=== PATIENT | male | born 1940 | race Caucasian/White ===

== ENCOUNTER → 2018-06-19 | Outpatient (CLI) | payer MEDICARE ==
--- NOTE | 2018-06-19 10:22 | CT ---
EXAMINATION TYPE: High resolution CT chest DATE OF EXAM: 06/19/2018 COMPARISON: 07/16/2014 HISTORY: 78-year-old male follow-up Interstitial lung disease. Complains of shortness of breath and d ifficulty breathing. TECHNIQUE: Contiguous high-resolution axial scanning of the chest without IV contrast utilizing 1 mm slice thickness and centimeter gap per HRCT protocol. Both prone and supine imaging was utilized. CT DLP: 256 mGycm Automated exposure control for dose reduction was used. FINDINGS: Heart borderline enlarged without pericardial effusion. Coronary vessel calcifications are present in the interval placement of left-sided AICD generator and pacemaker leads including a coronary sinus l ead. Mild aneurysm ascending aorta 4.0 cm. Conventional vessel branching anatomy. Mildly enlarged mediastinal lymph nodes measuring 1.3 cm precarinal region versus 1.4 cm, previously, AP window at 1.1 cm, stable, and 1.4 cm subcarinal versus 1.8 cm, previously are overall stable or m inimally smaller. No progressive thoracic lymphadenopathy. There is progression in the patient's, now moderate, right greater than left gynecomastia. No calcified pleural plaques identified. There is [id number] diffuse bronchial wall thickening. No honeycombing, centrilobular nodules, cystic change, thickening of the bronchovascular bundles, or dominant groundglass densities. No bronchiectasis. Mild dependent atelectasis at the posterior lower lungs. Stable strandy scarring at the inferior ling wilfrid and stable 5 mm pulmonary nodule in the lateral segment right middle lobe as compared to 2013, co mpatible with a benign etiology. HRCT technique limited for assessment of additional small pulmonary nodules. Visualized upper abdomen shows no gross abnormality. Bones: No osseous destructive process. IMPRESSION: 1. MILD TO MODERATE DIFFUSE BRONCHIAL WALL THICKENING CAN BE SEEN WITH BRONCHITIS OR CHRONIC ASTHMA. OTHERWISE, NO SPECIFIC HRCT FINDINGS OF AN INTERSTITIAL PNEUMONITIS. 2. INTERVAL PLACEMENT OF LEFT-SIDED PACEMAKER. 3. A FEW BORDERLINE TO MILDLY ENLARGED MEDIASTINAL LYMPH NODES ARE EITHER STABLE OR MINIMALLY SMALLER . ALSO, THE 5 MM RIGHT MIDDLE LOBE PULMONARY NODULE REMAINS STABLE FROM 2013 COMPATIBLE WITH A BENIGN ETIOLOGY. 4. STABLE MILD ANEURYSM ASCENDING AORTA AT 4.0 CM.
== END | disposition home or self-care (01) ==
LOC: RADCTMAIN 08:51
PROVIDERS: ATTEND Internal Medicine
DX: R91.8 Other nonspecific abnormal finding of lung field (principal); R59.0 Localized enlarged lymph nodes; R91.1 Solitary pulmonary nodule; Z88.6 Allergy status to analgesic agent
CPT/HCPCS: 71250

== ENCOUNTER → 2019-08-12 | Outpatient (CLI) | payer MEDICARE ==
[2019-08-12 09:43] LABS: HCT 47.5 % (39.0-53.0); MCH 29.4 pg (25.0-35.0); MCHC 31.6 g/dL (31.0-37.0); MCV 93.2 fL (80.0-100.0); Mean Platelet Volume 7.2; Platelet Count 139 k/uL (150-450); RDW 14.3 % (11.5-15.5); WBC 13.7 k/uL (3.8-10.6)
[2019-08-12 10:13] LABS: African American GFR (CKD) >90 (>60 ml/min/1.73 sqM); Anion Gap 6 mmol/L; Blood Urea Nitrogen 20 mg/dL (9-20); Carbon Dioxide 31 mmol/L (22-30); Chloride 101 mmol/L (98-107); Potassium 4.8 mmol/L (3.5-5.1); Sodium 138 mmol/L (137-145)
== END | disposition home or self-care (01) ==
LOC: LABPAT 09:10
PROVIDERS: ATTEND Internal Medicine Interventional Cardiology
DX: Z01.812 Encounter for preprocedural laboratory examination (principal); I25.10 Atherosclerotic heart disease of native coronary artery without angina pectoris
CPT/HCPCS: 36415; 80051; 82565; 84520; 85027

== ENCOUNTER → 2019-08-14 | Day surgery (SDC) | payer MEDICARE ==
[2019-08-12 15:57] VITALS: BMI 38.3
[~2019-08-14] MED LIST: ALPRAZolam 0.25 MG TAB PO PRN; ALPRAZolam 0.5 MG TAB PO PRN; ASPIRIN 325 MG TAB PO STA; ATORVASTATIN 80 MG TAB PO STA; BENZOCAINE SPRAY 1 CAN MUCOUS MEM ONE; BENZOCAINE SPRAY 1 CAN TOPICAL PRN; HEPARIN SODIUM 1,000 UN/ML (10ML VL) IV ONE; HEPARIN SODIUM 1,000 UN/ML (10ML VL) ONE; IOPAMIDOL-370 125ML BTL INJ ONE; IPRATROPIUM-ALBUTEROL 3 ML NEB INHALATION SCH; IV FLUID CONTINUATION 1,000 ML IV ONE; LIDOCAINE 1% INJ 10MG/ML (20 ML MDV) ONE; LIDOCAINE 1% INJ 10MG/ML (20 ML MDV) SQ ONE; LOSARTAN 25 MG TAB PO SCH; LOSARTAN 25 MG TAB PO STA; METOPROLOL SUCCINATE (ER) 50 MG TAB.ER.24H PO SCH; METOPROLOL SUCCINATE (ER) 50 MG TAB.ER.24H PO STA; MIDAZOLAM 2 MG/2 ML VIAL IV ONE; MIDAZOLAM 2 MG/2 ML VIAL IVP ONE; NITROGLYCERIN SL TABS 0.4 MG TAB SUBLINGUAL PRN; NON FORMULARY DRUG (Cetirizine Hcl [Zyrtec] 10 MG) PO SCH; NON FORMULARY DRUG (Simvastatin [Simvastatin] 40 MG) PO SCH; RX INFO: IV CONTRAST WAS GIVEN 1 EACH MISC MISCELLANE PRN; SODIUM CHLORIDE 0.9% 1,000 ML IV SCH; SODIUM CHLORIDE 0.9% 1,000 ML in EMPTY BAG 1 BAG IV ONE; SPIRONOLACTONE 25 MG TAB PO SCH; VERAPAMIL 2.5 MG/ML 2 ML AMP ONE; VERAPAMIL SYRINGE (5 MG/10 ML) INTRAARTER ONE; WARFARIN 5 MG TAB PO SCH; fentaNYL (PF) 50 MCG/ML 2 ML AMP IVP ONE; fentaNYL (PF) 50 MCG/ML 2 ML AMP ONE; fentaNYL (PF) 50 MCG/ML 5 ML AMP IVP ONE
[2019-08-14 06:49] VITALS: TEMP 97.9
[2019-08-14 06:55] LABS: Basophils # (A) 0.1 k/uL (0-0.2); Basophils % (A) 0 %; Eosinophils # (A) 0.3 k/uL (0-0.7); Eosinophils % (A) 2 %; HCT 43.5 % (39.0-53.0); HGB 14.4 gm/dL (13.0-17.5); Lymphocytes # (A) 1.1 k/uL (1.0-4.8); Lymphocytes % (A) 9 %; MCH 30.7 pg (25.0-35.0); MCV 92.8 fL (80.0-100.0); Mean Platelet Volume 6.7; Monocytes # (A) 0.8 k/uL (0-1.0); Monocytes % (A) 7 %; Neutrophils # (A) 9.8 k/uL (1.3-7.7); Neutrophils % (A) 80 %; Platelet Count 125 k/uL (150-450); RBC 4.69 m/uL (4.30-5.90); RDW 14.2 % (11.5-15.5); WBC 12.2 k/uL (3.8-10.6)
[2019-08-14 06:59] LABS: INR 1.1 (<1.2); Prothrombin Time 11.6 sec (9.0-12.0)
--- NOTE | 2019-08-14 07:57 | ECHOT ---
TRANSESOPHAGEAL ECHOCARDIOGRAM INDICATION: Evaluation of aortic valve. PROCEDURE: After explaining the procedure to the patient, its risks and the complications, blood pressure, heart rate, O2 saturation was monitored. The throat was sprayed with Cetacaine. He received 2 mg intravenous Versed and 50 mcg intravenous fentanyl. The probe was introduced in the esophagus without difficulty. Images were obtained. Following that, the probe was removed. There was no immediate complication. FINDINGS: Biatrial enlargement was noted. Left atrial appendage was normal. A wire was noted in the right ventricle. The left ventricular size and systolic function appears to be normal. The mitral valve revealed mitral anulus calcification. Tricuspid valve is normal. Aortic valve is a heavily calcified valve with appearance of a functional bicuspid valve with reduced opening. By planimetry the valve area is 1 centimeter square. The descending thoracic aorta revealed mild atherosclerotic changes. No pericardial effusion was noted. Contrast bubble study revealed no shunting across the interatrial septum. Doppler pulse wave and color Doppler obtained and revealed a moderate mitral, tricuspid and aortic regurgitation. The peak gradient across the aortic valve was 52 mmHg with a mean of 28 mmHg. There was no evidence of significant pulmonary hypertension. No shunting was noted by color Doppler study. CONCLUSION: 1. Biatrial enlargement with a wire noted in the right ventricle and right atrium. 2. Normal left ventricular size and systolic function. 3. Severe aortic stenosis by planimetry of a valve area of 1 centimeter square and a mean gradient of 28 mmHg. 4. Mitral anulus calcification. 5. Moderate mitral, aortic and tricuspid regurgitation. 6. Mild atherosclerotic change of the descending thoracic aorta. 7. No shunting across the interatrial septum. MMODL / IJN: [id number] /
[2019-08-14 08:21] VITALS: RESP 16
[2019-08-14 08:36] LABS: O2 Sat Blood Gas 70.3 %
[2019-08-14 08:40] LABS: O2 Sat Blood Gas 68.9 %
--- NOTE | 2019-08-14 09:36 | CC ---
CARDIAC CATHETERIZATION REPORT Mr. Rodriguez is an 79-year-old male with a known history of aortic valve disease who has been followed by Dr. Moseley who has history of chronic persistent atrial fibrillation, has presented with symptoms of progressive dyspnea on exertion. In view of that, recommendation was made regarding right and left heart catheterization. The procedure as well as the risks and the complications were discussed with the patient who is in full understanding and agreement. PROCEDURE: Patient was brought to the cardiac catheterization technician in a fasting semi-sedated state after receiving fentanyl and Benadryl. Using Xylocaine anesthesia in the Seldinger technique, a 6- Greek sheath was introduced in the right radial artery. Subsequently, using a guidewire exchange technique, the venous sheath in the right basilic vein was exchanged to a 6-Greek sheath. Following that, right heart catheterization was performed using Woodland-Sylvie catheter. Multiple pressure and samples were obtained. Cardiac output by thermodilution was calculated. Following that selective right and left coronary angiography performed using 5-Greek 3.5 bend right and left Rashid catheters. Multiple views of the coronary artery including hemiaxial views obtained. Following that, the 5-Greek right Rashid catheter was used to cross the aortic valve and pressures were calculated. Following that, catheter and sheaths were removed. Hemostasis was obtained with deployment of a TR band on the right radial artery and compression of the right basilic vein. The patient received a total of 5000 units of intravenous heparin and intra-arterial verapamil. There was no immediate complication. FINDINGS: FLUOROSCOPY: There was calcification involving the aortic valve and the coronary arteries. HEMODYNAMICS: Right atrial saturation 69%, pulmonary artery saturation 70%, arterial saturation 96%. Cardiac output by Joanna of 5.9 L/minute and by thermal 5.5 L/minute. Pulmonary artery systolic pressure of 48 with a diastolic of 23 and a mean of 32 mmHg. Pulmonary capillary wedge pressure: A-wave of 24 with a V-wave of 20 and a mean of 18 mmHg. Right ventricular systolic pressure of 42 with an end-diastolic of 8 mmHg. Pulmonary capillary wedge pressure: A-wave of 10 with a V-wave of 11 and a mean of 8 mmHg. Left ventricular end-diastolic pressure of 60 mmHg. Left ventricular systolic pressure of 140 with a peak gradient of 30 mmHg with an aortic valve area by Hakki formula ranges between 1 and 1.2 centimeter square. CORONARIES: LEFT MAIN: This is a short size vessel bifurcating in left circumflex, left anterior descending artery. Left main coronary artery has no evidence of high-grade stenosis. LEFT ANTERIOR DESCENDING ARTERY: This is a large-sized vessel reaching to the apex with a wraparound apex segment tapers down distal third, giving rise to a diagonal branch of moderate caliber. The left anterior descending artery has mild intimal disease proximally of 10% to 20% without any evidence of high-grade stenosis. LEFT CIRCUMFLEX: This is a nondominant vessel, small in caliber, giving rise to 2 obtuse marginal branches. The left circumflex as well as branches have no evidence of obstructive coronary artery disease. RIGHT CORONARY ARTERY: This is a large dominant vessel bifurcating distally PDA and posterolateral segment and branches. The PLV reaches toward the inferoapical lateral wall. The right coronary artery has mild intimal disease in mid segment without any evidence of high-grade stenosis. CONCLUSION: 1. Calcified aortic valve and coronary arteries. 2. Mild pulmonary hypertension. 3. Mild triple-vessel coronary artery disease. 4. Moderate to severe aortic stenosis. RECOMMENDATION: I recommend proceeding with evaluation for possible aortic valve intervention. Those findings and recommendations were discussed with the patient and his family and are in full understanding and agreement. Duration of procedure is 40 minutes. MMODL / IJN: [id number] / MTDAllison
--- NOTE | 2019-08-14 09:45 | LTR ---
August 14, 2019 Re: Honorio Adhikaridemarcus Dear Dr. Rojas: I had the opportunity to perform cardiac catheterization on Mr. Rodriguez at [facility] on the 14 of August and a full copy of the procedure note will be forwarded to you. In brief, he was found to have mild triple-vessel coronary artery disease with moderate severe aortic stenosis and based on those findings, I recommend proceeding with evaluation for possible aortic valve intervention and depending on his progress, further recommendations will be made. Thank you again for allowing me the opportunity to participate in his care. Please feel free to call for any questions. Sincerely yours, MD ROBER Amezcua / SALINASN: [id number] /
[2019-08-14 12:34] VITALS: PULSE 68
[2019-08-14 14:26] VITALS: BP 186/89
== END | disposition home or self-care (01) ==
LOC: CATHCVL 06:12
PROVIDERS: ATTEND Internal Medicine Interventional Cardiology
DX: I08.3 Combined rheumatic disorders of mitral, aortic and tricuspid valves (principal); I70.0 Atherosclerosis of aorta; I25.10 Atherosclerotic heart disease of native coronary artery without angina pectoris; I10 Essential (primary) hypertension; I48.21 Permanent atrial fibrillation; I42.8 Other cardiomyopathies; E78.5 Hyperlipidemia, unspecified; G47.33 Obstructive sleep apnea (adult) (pediatric); Z99.89 Dependence on other enabling machines and devices; Z95.810 Presence of automatic (implantable) cardiac defibrillator; Z82.49 Family history of ischemic heart disease and other diseases of the circulatory system; Z79.01 Long term (current) use of anticoagulants; Z79.52 Long term (current) use of systemic steroids; Z79.899 Other long term (current) drug therapy; Z88.6 Allergy status to analgesic agent
CPT/HCPCS: 93460; 93312; 93320; 93325; 85018; 82810; 85025; 85610; C1769; C1751; J2250; J2001; J3010; J1644; Q9967; 93453

== ENCOUNTER → 2019-11-02 | Outpatient (CLI) | payer MEDICARE ==
[2019-11-02 10:40] LABS: HCT 44.8 % (39.0-53.0); HGB 13.5 gm/dL (13.0-17.5); Hypochromasia Slight; MCH 27.4 pg (25.0-35.0); MCHC 30.1 g/dL (31.0-37.0); MCV 91.3 fL (80.0-100.0); Mean Platelet Volume 8.1; Platelet Count 146 k/uL (150-450); RBC 4.91 m/uL (4.30-5.90); RDW 13.5 % (11.5-15.5); WBC 7.4 k/uL (3.8-10.6)
[2019-11-02 16:16] LABS: African American GFR (CKD) 97.1 (60.0-200.0); Albumin/Globulin Ratio 1.82 (1.60-3.17); Anion Gap 7.7 mmol/L (4.00-12.00); BUN/Creat Ratio 16.25 Ratio (12.00-20.00); Calcium 9.1 mg/dL (8.7-10.3); Carbon Dioxide 28.3 mmol/L (21.6-31.8); Globulin 2.2 g/dL (1.6-3.3); Non-African American GFR(CKD) 83.8 (60.0-200.0); Potassium 4.1 mmol/L (3.5-5.5); Total Bilirubin 1.3 mg/dL (0.2-1.2); Total Protein 6.2 g/dL (6.2-8.2)
== END | disposition home or self-care (01) ==
LOC: LABWHC1 09:35
PROVIDERS: ATTEND Physician Assistant
DX: I48.19 Other persistent atrial fibrillation (principal); Z95.2 Presence of prosthetic heart valve
CPT/HCPCS: 36415; 80053; 85027

== ENCOUNTER → 2021-02-21 | Outpatient (CLI) | payer MEDICARE ==
[2021-02-21 19:08] LABS: HCT 49.3 % (39.6-50.0); HGB 15.1 g/dL (13.0-17.0); MCH 28.1 pg (27.0-32.0); MCHC 30.6 g/dL (32.0-37.0); MCV 91.8 fL (80.0-97.0); Mean Platelet Volume 11.3 fL (9.5-12.2); Platelet Count 191 X 10*3/uL (140-440); RBC 5.37 X 10*6/uL (4.40-5.60); RDW 14.6 % (11.5-14.5); WBC 14.47 X 10*3/uL (4.50-10.00)
[2021-02-21 21:03] LABS: African American GFR (CKD) 80.3 (60.0-200.0); Albumin 4.2 g/dL (3.80-4.90); Albumin/Globulin Ratio 1.62 (1.60-3.17); Anion Gap 7.8 mmol/L (4.00-12.00); Calcium 9.5 mg/dL (8.7-10.3); Carbon Dioxide 32.2 mmol/L (21.6-31.8); Globulin 2.6 g/dL (1.6-3.3); Non-African American GFR(CKD) 69.3 (60.0-200.0); Potassium 4.6 mmol/L (3.5-5.5); Total Bilirubin 1.6 mg/dL (0.3-1.2); Total Protein 6.8 g/dL (6.2-8.2)
== END | disposition home or self-care (01) ==
LOC: LABWHC1 10:41
PROVIDERS: ATTEND Internal Medicine Clinical Cardiac Electrophysiology
DX: I50.9 Heart failure, unspecified (principal); I48.91 Unspecified atrial fibrillation
CPT/HCPCS: 36415; 80053; 84443; 85027

== ENCOUNTER → 2021-03-21 | Day surgery (SDC) | payer MEDICARE ==
[2021-03-20 13:47] VITALS: BMI 39.0
[~2021-03-21] MED LIST changes: -ASPIRIN 325 MG TAB PO STA; -BENZOCAINE SPRAY 1 CAN MUCOUS MEM ONE; -BENZOCAINE SPRAY 1 CAN TOPICAL PRN; -HEPARIN SODIUM 1,000 UN/ML (10ML VL) IV ONE; -HEPARIN SODIUM 1,000 UN/ML (10ML VL) ONE; -IOPAMIDOL-370 125ML BTL INJ ONE; -IPRATROPIUM-ALBUTEROL 3 ML NEB INHALATION SCH; -IV FLUID CONTINUATION 1,000 ML IV ONE; -LOSARTAN 25 MG TAB PO SCH; -LOSARTAN 25 MG TAB PO STA; -METOPROLOL SUCCINATE (ER) 50 MG TAB.ER.24H PO SCH; -METOPROLOL SUCCINATE (ER) 50 MG TAB.ER.24H PO STA; -MIDAZOLAM 2 MG/2 ML VIAL IV ONE; -NON FORMULARY DRUG (Cetirizine Hcl [Zyrtec] 10 MG) PO SCH; -NON FORMULARY DRUG (Simvastatin [Simvastatin] 40 MG) PO SCH; -RX INFO: IV CONTRAST WAS GIVEN 1 EACH MISC MISCELLANE PRN; -SODIUM CHLORIDE 0.9% 1,000 ML IV SCH; -SPIRONOLACTONE 25 MG TAB PO SCH; -VERAPAMIL 2.5 MG/ML 2 ML AMP ONE; -VERAPAMIL SYRINGE (5 MG/10 ML) INTRAARTER ONE; -WARFARIN 5 MG TAB PO SCH; -fentaNYL (PF) 50 MCG/ML 2 ML AMP IVP ONE; -fentaNYL (PF) 50 MCG/ML 2 ML AMP ONE; -fentaNYL (PF) 50 MCG/ML 5 ML AMP IVP ONE
[2021-03-21 06:42] VITALS: PULSE 70; TEMP 98.1
[2021-03-21 06:43] LABS: Basophils # (A) 0.1 k/uL (0-0.2); Basophils % (A) 1 %; Eosinophils # (A) 0.4 k/uL (0-0.7); Eosinophils % (A) 4 %; HCT 43.6 % (39.0-53.0); HGB 14.3 gm/dL (13.0-17.5); Lymphocytes # (A) 1.4 k/uL (1.0-4.8); Lymphocytes % (A) 13 %; MCH 29.6 pg (25.0-35.0); MCHC 32.8 g/dL (31.0-37.0); MCV 90.3 fL (80.0-100.0); Mean Platelet Volume 7.7; Monocytes # (A) 0.9 k/uL (0-1.0); Monocytes % (A) 8 %; Neutrophils # (A) 7.9 k/uL (1.3-7.7); Neutrophils % (A) 74 %; Platelet Count 121 k/uL (150-450); RBC 4.82 m/uL (4.30-5.90); RDW 14.5 % (11.5-15.5); WBC 10.7 k/uL (3.8-10.6)
[2021-03-21 08:47] LABS: O2 Sat Blood Gas 65.7 %
[2021-03-21 08:49] LABS: O2 Sat Blood Gas 66.5 %
[2021-03-21 08:51] LABS: O2 Sat Blood Gas 68.4 %
[2021-03-21 08:52] LABS: O2 Sat Blood Gas 67.7 %
--- NOTE | 2021-03-21 09:02 | P.EPPROC ---
- EP Procedure Note Electrophysiology Procedure Note: Procedure Right heart cath Interrogation of the biventricular ICD Cinefluoroscopy of the leads Diagnosis Shortness of breath on exertion Status post biventricular ICD implant Underlying bradycardia, pacemaker dependency Permanent atrial fibrillation Cinefluoroscopy of the leads Cinefluoroscopy of the leads was performed RV lead screwed in the RV septum. No fractures or breaks noted LV lead in the lateral vein no fractures or breaks Bi V ICD interrogation [facility] hospitalist medical director Quadra Assura [id number], COMPLIANCE ASSOCIATE-D [id number] Atrial lead implant RV pacing threshold 1 warted 0.5 ms, R waves 5.4 mV, pacing impedance 340 ohms LV pacing threshold 0.5 V at 0.5 ms, P1-RV coil, pacing impedance 490 ohms High-voltage impedance 78 ohms Device was reprogrammed Rate responsiveness was adjusted Max since rate increased to 125 beats a minute LV offset 20 ms Right heart cath Wedge pressure 13/15/13 mmHg / PA pressures 46/16/mean 26. Millimeters of mercury RVSP 43/-2/12 RA pressures 9/10/8 Oxygen saturations 68.4% in the wedge position 65.7% in the PA 67.7% in the RV 66.5% in the RCA Impression Moderate pulmonary hypertension Mildly increased but recovery wedge pressures Mildly increased RA pressures No oxygen step up on the right side Normally functioning biventricular ICD Cinefluoroscopy reveals normal leads without any fractures
--- NOTE | 2021-03-21 09:11 | P.PRLE ---
RE: Honorio Rodriguez Dear Dr. Dong Mr. Rodriguez underwent a right heart cath to assess for diastolic heart failure. His biventricular ICD is functioning normally and his leads are within normal limits on fluoroscopy The right heart cath revealed this is a previous pressure was only mildly increased at around 13 mmHg The RA pressure was about 8 mmHg However the PA pressures were about 48 mmHg systolic It appears that while he does have diastolic heart failure, he is fairly well controlled on the current dose of Lasix spironolactone and his other cardiac medications He does have a history of lung disease and hence the PA pressures of 48 mmHg in the setting of a very wedge pressure that is just above the upper limits of normal I will continue his cardiac medications unchanged for now and I did explain this to the patient Thank you for entrusting me with the care of the patient Warm regards Sincerely Topher Moseley
[2021-03-21 13:55] VITALS: BP 139/67; RESP 18
== END | disposition home or self-care (01) ==
LOC: CATHEP 05:57
PROVIDERS: ATTEND Internal Medicine Clinical Cardiac Electrophysiology
DX: I11.0 Hypertensive heart disease with heart failure (principal); I50.33 Acute on chronic diastolic (congestive) heart failure; I48.21 Permanent atrial fibrillation; Z95.2 Presence of prosthetic heart valve; I49.3 Ventricular premature depolarization; R00.1 Bradycardia, unspecified; J84.10 Pulmonary fibrosis, unspecified; E66.01 Morbid (severe) obesity due to excess calories; Z68.41 Body mass index [BMI] 40.0-44.9, adult; E78.5 Hyperlipidemia, unspecified; Z82.49 Family history of ischemic heart disease and other diseases of the circulatory system
CPT/HCPCS: 93451; 93284; 85018; 82810; 85025; 87635; C1769 ×3; C1894; J2250; J2001

== ENCOUNTER → 2021-04-19 | Outpatient (CLI) | payer MEDICARE ==
--- NOTE | 2021-04-19 19:44 | CONS ---
CONSULTATION DATE OF SERVICE: 04/19/2021 HISTORY: [id number] gentleman who has been evaluated in Sleep Center for obstructive sleep apnea-hypopnea syndrome. HISTORY OF PRESENT ILLNESS/SLEEP WAKE EVALUATION: I saw patient 12 years ago. At that time, he was diagnosed with severe, mostly central, apneas. At that time, apnea-hypopnea index 66.8 with oxygen desaturation to 78%. The patient was started on treatment with BiPAP at that time and he continues to use his BiPAP equipment until today. His sleep schedule from 7-8 p.m. until 5 a.m. No problems with falling asleep, but at night patient wakes up, up to 4 times with nocturia. During the day, he takes long naps afternoon for 2-3 hours. Increased his weight from about 260 pounds 10 years ago until 291 pounds today. No history of hypnagogic hallucinations, sleep paralysis or cataplexy. Madison Sleepiness Scale today increased to 11. I checked his BiPAP unit, BiPAP pressure of 14/10 cm of water. Usage is 30/30 nights for more than 4 hours, average 10.6 hours per night. Leak is high at 43 L/minute. Apnea-hypopnea index is in acceptable range, 4.0. The patient wakes up from sleep up to 4 times with episodes of shortness of breath and nocturia. PAST MEDICAL HISTORY: Positive for COPD, hypertension, CHF, stroke in 2006, atrial fibrillation, hyperlipidemia. PAST SURGICAL HISTORY: According to patient's , left aortic valve replaced, hernia repair, permanent pacemaker and defibrillator insertion. MEDICATIONS: Simvastatin 40 mg once a day, metoprolol 50 mg 1-1/2 tablet once a day, furosemide 80 mg once a day. Eliquis twice a day, albuterol ipratropium 3 mg/0.5 mg inhaled in inhaler, methylprednisolone 4 mg once a day. Clopidogrel 75 mg once a day. Losartan 25 mg once a day. Spironolactone 25 mg once a day. REVIEW OF SYSTEMS: Multiple awakenings from sleep while on treatment with BiPAP. FAMILY HISTORY: Cancer, sleep apnea. PHYSICAL EXAMINATION: gentleman without distress. BP 137/73, HR 68, RR 20, height 5 feet 7 inches, weight 291.0, body mass index 45.5, temperature 97.3, oxygen saturation at room air 96%. Oropharynx extremely low position of soft palate, Mallampati 4: Neck 20.5 inches in circumference. ABDOMEN: Obese. EXTREMITIES: 1+ bilateral ankle edema. HEENT: PERRLA, EOMI, evaluation of oropharynx showed tongue protrudes midline. NECK: Supple, no JVD. Thyroid is not palpable. LUNGS: Clear to percussion and to auscultation. Good air exchange. No wheezing or rhonchi. HEART: S1, S2 regular. No murmurs, gallops, or rubs. CONFERENCE PLANNING MANAGER: Awake, alert, and oriented X3. Cranial nerves 2 to 7 intact. There is no fasciculation or atrophy. noted. No focal deficits observed. IMPRESSION: 1. Severe obstructive sleep apnea-hypopnea syndrome for 12 years. The patient continues to use BiPAP equipment every night, demonstrated 100% compliance with treatment, but wakes up from sleep multiple times. 2. Extremely low position of soft palate, Mallampati 4, extremely wide neck 20.5 inches in circumference, sleepiness during the day. By results of previous sleep study, mostly central sleep apnea-hypopnea syndrome. 3. Obesity, BMI 35.5. The patient increased his weight on about 30 pounds since previous titration. 4. History of atrial fibrillation. 5. History of congestive heart failure. 6. Hypertension. 7. Status post permanent pacemaker and defibrillator insertion. 8. Chronic obstructive pulmonary disease. 9. History of stroke in 2006. 10.Status post ? aortic valve replacement, according to . 11.Hyperlipidemia. PLAN: 1. Condition of air is bad.Filter needs to be replaced immediately. 2. Prescription for necessary supplies including air filters, tube, mask. 3. BiPAP titration for evaluation of patient breathing during sleep and check level of oxygen during the night. If necessary, additional oxygen supplement: 4. Aggressive losing weight program. 5. Precautions related to driving. No driving if feeling sleepiness. 6. Possibly I place BiPAP unit after testing. Thank you very much for allowing me to participate in management of your patient. Sincerely, Edmar Farr MD, PhD, FAASM Diplomat of [place] [employer] [place] [employer] [facility] [place] MMODL / IJN: [id number] / [facility]
== END ==
LOC: SLEEP 11:32
PROVIDERS: ATTEND Internal Medicine
DX: E66.9 Obesity, unspecified (principal); G47.31 Primary central sleep apnea; I48.91 Unspecified atrial fibrillation; I11.0 Hypertensive heart disease with heart failure; E78.5 Hyperlipidemia, unspecified; I50.9 Heart failure, unspecified; J44.9 Chronic obstructive pulmonary disease, unspecified; Z95.0 Presence of cardiac pacemaker; Z86.73 Personal history of transient ischemic attack (TIA), and cerebral infarction without residual deficits; Z79.01 Long term (current) use of anticoagulants; Z79.899 Other long term (current) drug therapy; Z68.35 Body mass index [BMI] 35.0-35.9, adult; Z88.6 Allergy status to analgesic agent
CPT/HCPCS: 99211

== ENCOUNTER → 2021-07-20 | Outpatient (CLI) | payer MEDICARE ==
--- NOTE | 2021-07-20 20:17 | SFUN ---
SLEEP CENTER FOLLOW UP NOTE DATE OF SERVICE: 07/20/2021 81-year-old gentleman has been followed in Sleep Center for treatment of obstructive sleep apnea-hypopnea syndrome. Recently the patient had CPAP-BiPAP titration and after titration he received new BiPAP machine. Today is his first visit after he started to use BiPAP equipment. According to patient and family, he sleeps well with this machine, but it was several episodes then machine just stopped working. Anna Sleepiness Scale today is 10 which is borderline. I checked his BiPAP unit. Minimal expiratory pressure 11. Maximal inspiratory pressure 19, pressure support 4, average pressure 15.7/11.7, usage 28/30 nights for more than 4 hours. Average 9.7 hours per night. Leak is quite high 60 L/minute, but at the same time apnea-hypopnea index only 3.4, which is absolutely perfect. Presently, patient using fullface Simplus mask but he preferred to use nasal mask. MEDICATIONS: Simvastatin 40 mg once a day, metoprolol 50 mg 1-1/2 tablets once a day, furosemide 80 mg once a day, Eliquis twice a day, albuterol 3 mg-0.5 mg inhaler, methylprednisolone 4 mg once a day, clopidogrel 75 mg once a day, losartan 25 mg once a day, spironolactone 25 mg once a day. PHYSICAL EXAMINATION: GENERAL: gentleman without distress. BP 134/69, HR 70, RR 18, weight 302.6 pounds, temperature 96.7, oxygen saturation at room air 97%. Oropharynx extremely low position of soft palate. Mallampati 4 NECK: Wide neck, 20.5 inches in circumference. Supple, no JVD. Thyroid is not palpable. LUNGS: Clear to percussion and to auscultation. Good air exchange. No wheezing or rhonchi. HEART: S1, S2 regular. No murmurs, gallops, or rubs. ABDOMEN: Obese. Soft and nontender. Bowel sounds are present. No organomegaly appreciated. EXTREMITIES: 1+ bilateral ankle edema. COLLET DRILLER: Awake, alert, and oriented X3. Cranial nerves 2 to 7 intact. There is no fasciculation or atrophy. noted. No focal deficits observed. IMPRESSION: 1. Severe obstructive sleep apnea-hypopnea syndrome. Patient demonstrated great compliance with treatment benefitting from treatment. 2. BiPAP unit problem according to the family. Sometimes BiPAP stops working. 3. Obesity. 4. History of atrial fibrillation. 5. History of congestive heart failure. 6. Hypertension. 7. Status post permanent pacemaker and defibrillator insertion. 8. Chronic obstructive pulmonary disease. 9. History of stroke in 2006. 10.History of aortic valve replacement. 11.Hyperlipidemia. PLAN: 1. Prescription to replace BiPAP unit. 2. Patient will continue to use PAP equipment every night for the whole night. 3. Sleep hygiene with regular time in bed for at least 7-1/2 to 8 hours. 4. Precautions related to driving. No driving if feeling sleepiness. 5. I will maintain all necessary prescription for PAP supplies including mask, tube, filters. 6. Watching weight. 7. Follow-up visit in 6 months or earlier if patient has any problems. 8. Patient may restart usage of nasal mask instead of fullface mask with usage of chinstrap if necessary because of his preference. Thank you very much for allowing me to participate in the management of your patient. Sincerely, Edmar Farr MD, PhD, FAASM Diplomat of [place] [employer] Sleep Medicine Board of [place] [employer] Chief Scientist of [facility] [place] MMODL / IJN: [id number] /
== END ==
LOC: SLEEP 10:24
PROVIDERS: ATTEND Internal Medicine
DX: G47.33 Obstructive sleep apnea (adult) (pediatric) (principal); E66.9 Obesity, unspecified; I48.91 Unspecified atrial fibrillation; I10 Essential (primary) hypertension; J44.9 Chronic obstructive pulmonary disease, unspecified; E78.5 Hyperlipidemia, unspecified; Z86.73 Personal history of transient ischemic attack (TIA), and cerebral infarction without residual deficits; Z86.79 Personal history of other diseases of the circulatory system; Z95.0 Presence of cardiac pacemaker; Z95.4 Presence of other heart-valve replacement; Z88.6 Allergy status to analgesic agent

== ENCOUNTER → 2022-03-30 | Outpatient (CLI) | payer MEDICARE ==
--- NOTE | 2022-03-30 09:28 | US ---
EXAMINATION TYPE: US chest DATE OF EXAM: 03/30/2022 COMPARISON: NONE CLINICAL HISTORY: J90 PLEURAL EFFUSION. TECHNIQUE: Targeted ultrasound of the posterior lower left hemithorax EXAM MEASUREMENTS: Left Pleural Effusion pocket size: 8.3 cm Left skin surface to fluid distance: 5.1 cm Left side marked for possible thoracentesis outside the dept. Pulmonologists are able to review the images in the patient?s EMR. IMPRESSIONS: As above
== END ==
LOC: RADUSWWP 08:52
PROVIDERS: ATTEND Internal Medicine
DX: J90 Pleural effusion, not elsewhere classified (principal)
CPT/HCPCS: 76604

== ENCOUNTER → 2022-03-30 | Day surgery (SDC) | payer MEDICARE ==
[~2022-03-30] MED LIST changes: -ALPRAZolam 0.25 MG TAB PO PRN; -ALPRAZolam 0.5 MG TAB PO PRN; -ATORVASTATIN 80 MG TAB PO STA; -LIDOCAINE 1% INJ 10MG/ML (20 ML MDV) ONE; -LIDOCAINE 1% INJ 10MG/ML (20 ML MDV) SQ ONE; -MIDAZOLAM 2 MG/2 ML VIAL IVP ONE; -NITROGLYCERIN SL TABS 0.4 MG TAB SUBLINGUAL PRN; -SODIUM CHLORIDE 0.9% 1,000 ML in EMPTY BAG 1 BAG IV ONE; +SODIUM CHLORIDE 0.9% 500 ML 500 ML in EMPTY BAG 1 BAG IV PRN
[2022-03-30 11:55] VITALS: RESP 16; TEMP 97.6
[2022-03-30 12:34] VITALS: BP 111/60; PULSE 69
--- NOTE | 2022-03-30 12:50 | XR ---
EXAMINATION TYPE: XR chest 1V portable DATE OF EXAM: 03/30/2022 COMPARISON: Chest x-ray 02/21/2022, 03/28/2022 HISTORY: Status post left-sided thoracentesis TECHNIQUE: Single frontal view of the chest is obtained. FINDINGS: There is no evident pneumothorax. There is some improvement in aeration in the left lung. There is prominence of interstitium. Heart is likely enlarged. IMPRESSION: No evident complication status post thoracentesis. Correlate for possible volume overloa d, pulmonary venous hypertension and interstitial edema. Persistent basilar atelectasis and left pleu ral effusion versus edema or atelectasis.
[2022-03-31 04:14] LABS: Glucose, BF Source Thoracentesis Fluid; Glucose, Body Fluid 120 mg/dL; LDH, Body Fluid Source Thoracentesis Fluid; T. Protein, Body Fluid Source Thoracentesis Fluid; Total Protein, Body Fluid 2490 mg/dL
--- NOTE | 2022-04-17 16:17 | PCN ---
PROCEDURE NOTE DATE OF SERVICE: 03/30/2022 OPERATIVE REPORT: Left-sided thoracentesis. PREOPERATIVE DIAGNOSIS: Pleural effusion. POSTOPERATIVE DIAGNOSIS: Pleural effusion. ANESTHESIA USED: 2 mL of 1% lidocaine. PROCEDURE: The patient was placed in a sitting upright position, the area below the left scapula was prepared in a sterile fashion and drapes were applied. The area of the fluid was earlier localized by ultrasound guidance. The marking was basically at the eighth intercostal space and tip of the scapula. The area was locally anesthetized with lidocaine. Then, a 26-gauge needle was inserted at the same site and advanced into the pleural space until the fluid was localized. Then, using the standard thoracentesis catheter and needle, a small tiny incision was made at the same site, and the catheter and needle were inserted at the same site, advanced into the pleural space, and I was able to drain over 800 mL of the serosanguineous fluid from the left pleural space. Fluid was sent for different diagnostic studies. No evidence of any immediate complications post thoracentesis, and the procedure was well tolerated. No pneumothorax noted. The patient was discharged home in stable condition. MMODL / IJN: [id number] /
== END ==
LOC: PROCWHC3 11:18
PROVIDERS: ATTEND Internal Medicine
DX: J90 Pleural effusion, not elsewhere classified (principal); J44.9 Chronic obstructive pulmonary disease, unspecified; Z77.090 Contact with and (suspected) exposure to asbestos; I48.20 Chronic atrial fibrillation, unspecified; Z95.0 Presence of cardiac pacemaker; E78.00 Pure hypercholesterolemia, unspecified; G47.33 Obstructive sleep apnea (adult) (pediatric); I42.8 Other cardiomyopathies; I50.23 Acute on chronic systolic (congestive) heart failure; Z88.6 Allergy status to analgesic agent; Z79.51 Long term (current) use of inhaled steroids; Z79.01 Long term (current) use of anticoagulants; Z79.899 Other long term (current) drug therapy; Z82.49 Family history of ischemic heart disease and other diseases of the circulatory system
CPT/HCPCS: 32554; 71045; 82945; 83615; 84157; 87070; 87075; 87102; 87116; 87205; 87206; 88108; 88305

== ENCOUNTER → 2022-06-06 | Outpatient (CLI) | payer MEDICARE ==
[2022-06-07 00:22] LABS: Magnesium 2.2 mg/dL (1.5-2.4)
[2022-06-07 00:40] LABS: African American GFR (CKD) 51.8 (60.0-200.0); Anion Gap 13.9 mmol/L (10.00-18.00); BUN/Creat Ratio 18.32 Ratio (12.00-20.00); Blood Urea Nitrogen 26.2 mg/dL (9.0-27.0); Calcium 9.6 mg/dL (8.7-10.3); Carbon Dioxide 26.3 mmol/L (20.0-27.5); Non-African American GFR(CKD) 44.7 (60.0-200.0)
== END | disposition home or self-care (01) ==
LOC: LABWHC1 11:02
PROVIDERS: ATTEND Internal Medicine Interventional Cardiology
DX: I10 Essential (primary) hypertension (principal)
CPT/HCPCS: 36415; 80048; 83735

== ENCOUNTER 2024-03-28 16:01 | Inpatient (IN) | payer MEDICARE ==
[2024-03-28 16:16] LABS: Glucose,Whole Blood 90 mg/dL (70-110)
--- NOTE | 2024-03-28 16:20 | ED ---
General Adult HPI - General Chief complaint: Altered Mental Status Stated complaint: Fall on thinner Time Seen by Provider: 03/28/24 16:04 Source: patient Mode of arrival: EMS Limitations: no limitations - History of Present Illness Initial comments: Dictation was produced using [employer] dictation software. please excuse any grammatical, word or spelling errors. Chief Complaint: 84-year-old male presents to the emergency department after fall and being found down. History of Present Illness: Patient is 84-year-old male history present illness obtained from nurse received report from EMS. Apparently patient was last seen normal around 7:30 AM this morning. He is found at the bottom of a foot of stairs approximately 30 minutes prior to arrival. Patient states he fell hit his head. According to EMS patient was altered upon initial arrival. He had been laying on the ground for several hours. Patient had several abrasions to his lower extremities. Apparently he has history of some cellulitis. Does take anticoagulation medications. Is a poor historian. Unclear what patient's baseline mentation is. Apparently he lives at home with his . Currently EMS patient is ANO x 0 and GCS 13. Unable to obtain ROS secondary to mental status. - Related Data Home Medications Medication Instructions Recorded Confirmed Ipratropium-Albuterol Nebulize 3 ml INHALATION RT-QID PRN 08/12/19 03/26/24 [Duoneb 0.5 mg-3 mg/3 ml Soln] Metoprolol Succinate (ER) [Toprol 50 mg PO QAM 08/12/19 03/26/24 XL] Apixaban [Eliquis] 5 mg PO BID 02/20/22 03/26/24 Furosemide [Lasix] 40 mg PO BID 03/30/22 03/26/24 Allerest 10 mg PO QAM 03/26/24 03/26/24 Fluticasone/Umeclidin/Vilanter 1 puff INHALATION QAM 03/26/24 03/26/24 [Trelegy Ellipta 100-62.5-25] Iron Glucagon 27 mg PO QAM 03/26/24 03/26/24 Rosuvastatin [Crestor] 20 mg PO HS 03/26/24 03/26/24 Allergies Allergy/AdvReac Type Severity Reaction Status Date / Time aspirin Allergy Severe throat Verified 03/26/24 08:54 swelling Review of Systems ROS Statement: Those systems with pertinent positive or pertinent negative responses have been documented in the HPI. ROS Other: All systems not noted in ROS Statement are negative. Past Medical History Past Medical History: Atrial Fibrillation, Cancer, Heart Failure, COPD, CVA/TIA, Hyperlipidemia, Hypertension, Osteoarthritis (OA), Pneumonia, Sleep Apnea/CPAP/BIPAP Additional Past Medical History / Comment(s): recent echo, SOB w/exertion, uses CPAP, hx. skin cancer, hx. stroke 2006-no residual effects, pneumonia in 2019, see Dr Moseley H & P History of Any Multi-Drug Resistant Organisms: MRSA Date of last positivie culture/infection: 05/13/19 MDRO Source:: BACK Past Surgical History: AICD, Cardiac Valve Replacement, Heart Catheterization, Hernia Repair, Orthopedic Surgery Additional Past Surgical History / Comment(s): 2nd finger right hand reattached, TAVR 2019 Past Anesthesia/Blood Transfusion Reactions: No Reported Reaction Type of Cardiac Device: AICD Device Placement Date:: 2014 Past Psychological History: No Psychological Hx Reported Smoking Status: Never smoker Past Alcohol Use History: None Reported Past Drug Use History: None Reported - Past Family History Brother(s) Family Medical History: Cancer General Exam - General Exam Comments Initial Comments: PHYSICAL EXAM: General Impression: Alert and oriented X 1, no acute distress, disheveled with dirt on feet HEENT: Normocephalic atraumatic, extra-ocular movements intact, pupils equal and reactive to light bilaterally, mucous membranes moist. Cardiovascular: Heart regular rate and rhythm Chest: Able to complete full sentences, no retractions, no tachypnea Abdomen: abdomen soft, non-tender, non-distended, no organomegaly Musculoskeletal: Pulses present and equal in all extremities, plus pitting edema to bilateral extremities Motor: no focal deficits noted Neurological: CN II-XII grossly intact,, aphasic, nondysarthric no focal motor or sensory deficits noted Skin: Abrasions to the lower extremities Psych: Normal affect and mood Limitations: no limitations Course Vital Signs 03/28/24 03/28/24 16:05 16:15 Temperature 99.2 F Pulse Rate 74 Respiratory 20 Rate Blood Pressure 146/73 O2 Sat by Pulse 94 L Oximetry - Reevaluation(s) Reevaluation #1: 03/28/24 16:31 Patient had history of fall with anticoagulation medications and altered mental status level 2 trauma was paged out. Reevaluation #2: 03/28/24 19:42 Reevaluated at 7:42 PM looking significantly improved. Family states that he also seems to be improved though still slightly altered. Patient's neurologic exam is unremarkable. CT brain is negative. Trauma workup shows no acute traumatic issues. There does appear to be some diminished blood flow to some of the left MCA branches. Neurologic exam at the bedside shows no right-sided deficit. Patient would benefit from observation admission. Discussed with surgery for admission given that patient was initially started as a level [address] Reddy request that patient be admitted to medicine with trauma consult. EKG Findings - EKG Comments: EKG Findings:: My EKG interpretation: Ventricular rate 77, ventricular paced rhythm, QRS 134, QTc 446. No MO prolongation, no QTC prolongation, no ST or T- wave changes noted. EKG compared to February 20, 2022 showing no changes. Overall, this EKG is unremarkable Medical Decision Making - Medical Decision Making Was pt. sent in by a medical professional or institution (, PA, OPAL POLISHER, urgent care, hospital, or fpc...) When possible be specific @ -No Did you speak to anyone other than the patient for history (EMS, parent, family, police, friend...)? What history was obtained from this source @ -Some history is obtained from EMS as described above Did you review nursing and triage notes (agree or disagree)? Why? @ -I reviewed and agree with nursing and triage notes Were old charts reviewed (outside hosp., previous admission, EMS record, old EKG, old radiological studies, urgent care reports/EKG's, fpc records)? Report findings @ -No old charts were reviewed Differential Diagnosis (chest pain, altered mental status, abdominal pain women, abdominal pain men, vaginal bleeding, musculoskeletal, weakness, fever, dyspnea, syncope, headache, dizziness, GI bleed, back pain, seizure, CVA, palpatations, mental health)? @ -Differential Altered Mental Status: Hypoglycemia, DKA, hypercapnia, ETOH, overdose, CO poisoning, trauma, myxedema coma, HTN encephalopathy, infection, encephalitis, psychosis, intercranial hemorrhage, hepatic encephalopathy, meningitis, CVA, this is not meant to be an all-inclusive list EKG interpreted by me (3pts min.). @ -See above X-rays interpreted by me (1pt min.). @ -Chest x-ray pelvis x-ray shows no acute processes. CT interpreted by me (1pt min.). @ -CT scan of the head and C-spine CT angiography of the head is obtained. CT head and C-spine shows no acute traumatic process. CT angiography shows diminished branch vessels of the left MCA territory U/S interpreted by me (1pt. min.). @ -None done What testing was considered but not performed or refused? (CT, X-rays, U/S, labs)? Why? @ -None What meds were considered but not given or refused? Why? @ -None Was smoking cessation discussed for >3mins.? @ -No Were there social determinants of health that impacted care today? How? (Homelessness, low income, unemployed, alcoholism, drug addiction, transportation, low edu. Level, literacy, decrease access to med. care, halfway, rehab)? @ -No Was there de-escalation of care discussed even if they declined (Discuss DNR or withdrawal of care, Hospice)? DNR status @ -No What co-morbidities impacted this encounter? (DM, HTN, Smoking, COPD, CAD, Cancer, CVA, ARF, Chemo, Hep., AIDS, mental health diagnosis, sleep apnea, morbid obesity)? @ -A-fib, heart failure, debility Was patient admitted / discharged? Hospital course, mention meds given and route, prescriptions, significant lab abnormalities, going to OR and other pertinent info. @ -84-year-old male brought in from home after being found on the ground. He was allegedly on the ground for several hours after falling. Patient presents with altered mental status. Signs upon arrival are within acceptable limits. Patient initially unable to provide history of present illness upon evaluation. Patient activated level 2 trauma due to history of fall with mental status changes. Imaging studies are negative for any acute traumatic processes. CT angiography she does show some diminished branches in the left MCA territory. Patient does not have any right-sided neurologic focal deficits. Laboratory evaluation obtained. Mild leukocytosis 15.6. Coag panel is negative. Metabolic panel within acceptable limits. Troponins elevated 0.089 however this is likely secondary to trope leak given that patient has history of heart failure. Reevaluated bedside 8:00 PM. Case discussed with general surgery who requested patient be admitted to medicine with surgery on consult. Case discussed with Dr. Park for admission Did you discuss the management of the patient with other professionals (professionals i.e. , PA, OPAL POLISHER, lab, RT, psych nurse, vp digital marketing social media and crm, life science teacher, teacher, combat information center officer, business case analyst)? Give summary @ -See above Was critical care preformed (if so, how long)? @ -Yes, 33 minutes Undiagnosed new problem with uncertain prognosis? @ -No Drug Therapy requiring intensive monitoring for toxicity (Heparin, Nitro, Insulin, Cardizem)? @ -No Were any procedures done? @ -No Diagnosis/symptom? Acute, or Chronic, or Acute on Chronic? Uncomplicated (without systemic symptoms) or Complicated (systemic symptoms)? @ -Fall, altered mental status Side effects of treatment? @ -No Exacerbation, Progression, or Severe Exacerbation? @ -No Poses a threat to life or bodily function? How? (Chest pain, USA, MT, pneumonia, PE, COPD, DKA, ARF, appy, cholecystitis, CVA, Diverticulitis, Homicidal, Suicidal, threat to staff... and all critical care pts) @ -yes - Lab Data Result diagrams: 03/28/24 16:10 03/28/24 16:10 Lab Results 03/28/24 03/28/24 03/28/24 Range/Units 16:10 16:10 16:10 WBC 15.6 H (3.8-10.6) k/uL RBC 4.60 (4.30-5.90) m/uL Hgb 11.8 L (13.0-17.5) gm/dL Hct 40.1 (39.0-53.0) % MCV 87.3 (80.0-100.0) fL MCH 25.6 (25.0-35.0) pg MCHC 29.4 L (31.0-37.0) g/dL RDW 15.1 (11.5-15.5) % Plt Count 231 (150-450) k/uL MPV 10.3 Neutrophils % 80 % Lymphocytes % 6 % Monocytes % 11 % Eosinophils % 1 % Basophils % 0 % Neutrophils # 12.4 H (1.3-7.7) k/uL Lymphocytes # 0.9 L (1.0-4.8) k/uL Monocytes # 1.8 H (0-1.0) k/uL Eosinophils # 0.2 (0-0.7) k/uL Basophils # 0.1 (0-0.2) k/uL Hypochromasia Moderate PT 14.8 H (10.0-12.5) sec INR 1.4 H (<1.2) APTT 27.2 (22.0-30.0) sec Sodium 138 (137-145) mmol/L Potassium 4.7 (3.5-5.1) mmol/L Chloride 108 H (98-107) mmol/L Carbon Dioxide 18 L (22-30) mmol/L Anion Gap 12 mmol/L BUN 25 H (9-20) mg/dL Creatinine 1.52 H (0.66-1.25) mg/dL Est GFR (CKD-EPI)AfAm 48 (>60 ml/min/1.73 sqM) Est GFR (CKD-EPI)NonAf 41 (>60 ml/min/1.73 sqM) Glucose 83 (74-99) mg/dL POC Glucose (mg/dL) (70-110) mg/dL POC Glu Nitrate Operator ID Calcium 8.7 (8.4-10.2) mg/dL Total Bilirubin 1.9 H (0.2-1.3) mg/dL AST 46 (17-59) U/L ALT 17 (4-49) U/L Alkaline Phosphatase 123 (38-126) U/L Creatine Kinase 197 H (55-170) U/L Troponin I (0.000-0.034) ng/mL Total Protein 6.8 (6.3-8.2) g/dL Albumin 3.6 (3.5-5.0) g/dL Serum Alcohol <10 mg/dL Blood Type Blood Type Confirm Blood Type Recheck Bld Type Recheck Status Antibody Screen Spec Expiration Date 03/28/24 03/28/24 03/28/24 Range/Units 16:10 16:10 16:14 WBC (3.8-10.6) k/uL RBC (4.30-5.90) m/uL Hgb (13.0-17.5) gm/dL Hct (39.0-53.0) % MCV (80.0-100.0) fL MCH (25.0-35.0) pg MCHC (31.0-37.0) g/dL RDW (11.5-15.5) % Plt Count (150-450) k/uL MPV Neutrophils % % Lymphocytes % % Monocytes % % Eosinophils % % Basophils % % Neutrophils # (1.3-7.7) k/uL Lymphocytes # (1.0-4.8) k/uL Monocytes # (0-1.0) k/uL Eosinophils # (0-0.7) k/uL Basophils # (0-0.2) k/uL Hypochromasia PT (10.0-12.5) sec INR (<1.2) APTT (22.0-30.0) sec Sodium (137-145) mmol/L Potassium (3.5-5.1) mmol/L Chloride (98-107) mmol/L Carbon Dioxide (22-30) mmol/L Anion Gap mmol/L BUN (9-20) mg/dL Creatinine (0.66-1.25) mg/dL Est GFR (CKD-EPI)AfAm (>60 ml/min/1.73 sqM) Est GFR (CKD-EPI)NonAf (>60 ml/min/1.73 sqM) Glucose (74-99) mg/dL POC Glucose (mg/dL) 90 (70-110) mg/dL POC Glu Nitrate Operator ID Veronica Baez Calcium (8.4-10.2) mg/dL Total Bilirubin (0.2-1.3) mg/dL AST (17-59) U/L ALT (4-49) U/L Alkaline Phosphatase (38-126) U/L Creatine Kinase (55-170) U/L Troponin I 0.089 H* (0.000-0.034) ng/mL Total Protein (6.3-8.2) g/dL Albumin (3.5-5.0) g/dL Serum Alcohol mg/dL Blood Type B Positive Blood Type Confirm Blood Type Recheck No Previous Record Bld Type Recheck Status CABO Indicated Antibody Screen NEGATIVE Spec Expiration Date 03/31/2024 - 230903/28/24 Range/Units 16:15 WBC (3.8-10.6) k/uL RBC (4.30-5.90) m/uL Hgb (13.0-17.5) gm/dL Hct (39.0-53.0) % MCV (80.0-100.0) fL MCH (25.0-35.0) pg MCHC (31.0-37.0) g/dL RDW (11.5-15.5) % Plt Count (150-450) k/uL MPV Neutrophils % % Lymphocytes % % Monocytes % % Eosinophils % % Basophils % % Neutrophils # (1.3-7.7) k/uL Lymphocytes # (1.0-4.8) k/uL Monocytes # (0-1.0) k/uL Eosinophils # (0-0.7) k/uL Basophils # (0-0.2) k/uL Hypochromasia PT (10.0-12.5) sec INR (<1.2) APTT (22.0-30.0) sec Sodium (137-145) mmol/L Potassium (3.5-5.1) mmol/L Chloride (98-107) mmol/L Carbon Dioxide (22-30) mmol/L Anion Gap mmol/L BUN (9-20) mg/dL Creatinine (0.66-1.25) mg/dL Est GFR (CKD-EPI)AfAm (>60 ml/min/1.73 sqM) Est GFR (CKD-EPI)NonAf (>60 ml/min/1.73 sqM) Glucose (74-99) mg/dL POC Glucose (mg/dL) (70-110) mg/dL POC Glu Nitrate Operator ID Calcium (8.4-10.2) mg/dL Total Bilirubin (0.2-1.3) mg/dL AST (17-59) U/L ALT (4-49) U/L Alkaline Phosphatase (38-126) U/L Creatine Kinase (55-170) U/L Troponin I (0.000-0.034) ng/mL Total Protein (6.3-8.2) g/dL Albumin (3.5-5.0) g/dL Serum Alcohol mg/dL Blood Type Blood Type Confirm B Positive Blood Type Recheck Bld Type Recheck Status Antibody Screen Spec Expiration Date Disposition Clinical Impression: Fall, Altered mental status Disposition: ADMITTED IP TO THIS [facility] Condition: Fair Referrals: Ramy Rojas Jr, [Doctor of Osteopathic Medicine] - 1-2 days Decision Time: 19:57
--- NOTE | 2024-03-28 16:34 | XR ---
EXAMINATION TYPE: XR pelvis AP view DATE OF EXAM: 03/28/2024 CLINICAL HISTORY: pain TECHNIQUE: Single view the pelvis is submitted. FINDINGS: No evidence for fracture, dislocation or bony lesion. Joint spaces are well-preserved. S I joints appear symmetric. IMPRESSION: 1. No acute fracture or dislocation seen. ICD 10 NO FRACTURE, INITIAL EVALUATION
--- NOTE | 2024-03-28 16:35 | XR ---
EXAMINATION TYPE: XR chest 1V portable DATE OF EXAM: 03/28/2024 COMPARISON: 03/30/2022 HISTORY: Shortness of breath TECHNIQUE: Frontal and lateral views of the chest are obtained. FINDINGS: Scattered senescent parenchymal changes noted. Hyperinflation compatible with COPD. No evidence for infiltrate. No evidence for atelectasis. Cardiomegaly with pulmonary venous congestion. No evidence for overt failure at this time. Mediastinal structures are stable and grossly unremarkable. No evidence for hilar prominence. Degenerative changes dorsal spine. IMPRESSION: Cardiomegaly with pulmonary venous congestion. No evidence for overt failure at this time.
--- NOTE | 2024-03-28 16:53 | CT ---
EXAMINATION TYPE: CT brain cspine wo con DATE OF EXAM: 03/28/2024 COMPARISON: None HISTORY: pt found outside unresponsive. best images due to pt breathing, body habitus, and status. CT DLP: 1033.4 (combined total) mGycm Unenhanced CT of the brain was performed. The ventricles, basal cisterns and sulci overlying the cerebral convexities demonstrate enlargement. There is no evidence for intracranial hemorrhage or sulcal effacement. There is decreased attenuatio n about the periventricular white matter and deep white matter of both cerebral hemispheres, compatib le with chronic small vessel ischemia. No mass effects are seen. If symptoms persist consider MRI. Osseous calvarium is intact. Mucous retention cyst or polyp left maxillary sinus. IMPRESSION: 1. Age related atrophic and chronic small vessel ischemic change without acute intracranial process seen at this time. CT Cervical Spine: Unenhanced CT of the cervical spine was performed with bone and soft tissue window settings submitted . Coronal and sagittal reconstruction is obtained. The study is limited by patient motion. There is normal alignment and prevertebral soft tissues. No evidence for acute cervical fracture . Scattered degenerative disc disease and spondylosis. Biapical scarring. IMPRESSION: 1. No evidence for acute fracture or subluxation of the cervical spine.
--- NOTE | 2024-03-28 16:58 | CT ---
EXAMINATION TYPE: CT angio head neck DATE OF EXAM: 03/28/2024 COMPARISON: The HISTORY: pt found outside unresponsive. best images due to pt breathing, body habitus, and status. CT DLP: 1033.4 (Combined total) mGycm CONTRAST: Performed with IV Contrast, patient injected with 65ml mL of Isovue 370. Combination Contrast CTA cervical carotids and [place] CTA cervical carotids with 3-D recons truction Contrast CTA of the cervical carotids was performed 3-D reconstruction imaging obtained at a separate workstation. Right carotid system: Mild plaque is seen of the right common carotid artery. There is mild plaque a lso noted at the carotid bulb and proximal ICA. No significant diameter reduction. ECA is patent. Right vertebral artery appears unremarkable. Left carotid system: Mild plaque is seen of the left common carotid artery. There is mild plaque als o noted at the carotid bulb and proximal ICA. Estimated diameter reduction of 60%. ECA is patent. Lef t vertebral artery appears unremarkable. Cardiomegaly with pulmonary venous congestion and small effusions. IMPRESSION: 1. No significant diameter reduction to account for the patient's symptoms. 2.Cardiomegaly with pulmonary venous congestion and small effusions. CTA [place] with 3-D reconstruction Contrast CTA of the [place] was performed 3-D reconstruction imaging obtained at a separate workstation. Vertebrobasilar system as well as intracranial portions of the internal carotid arteries and their ma richard tributaries are patent. I do not see evidence for sizable aneurysm or vascular malformation. Dim inished branch vessels left MCA territory. Please note MRI provides greater sensitivity and specifici ty. Visualized brain appears grossly unremarkable. IMPRESSION: 1. Diminished branch vessels left MCA territory. NASCET criteria was used in interpretation of this exam?
[2024-03-28 16:59] LABS: ALT 17 U/L (4-49); AST 46 U/L (17-59); African American GFR (CKD) 48 (>60 ml/min/1.73 sqM); Albumin 3.6 g/dL (3.5-5.0); Alcohol <10 mg/dL; Alkaline Phosphatase 123 U/L (38-126); Anion Gap 12 mmol/L; Blood Urea Nitrogen 25 mg/dL (9-20); Calcium 8.7 mg/dL (8.4-10.2); Carbon Dioxide 18 mmol/L (22-30); Chloride 108 mmol/L (98-107); Creatine Kinase 197 U/L (55-170); Glucose 83 mg/dL (74-99); Non-African American GFR(CKD) 41 (>60 ml/min/1.73 sqM); Potassium 4.7 mmol/L (3.5-5.1); Sodium 138 mmol/L (137-145); Total Bilirubin 1.9 mg/dL (0.2-1.3); Total Protein 6.8 g/dL (6.3-8.2)
[2024-03-28 17:08] LABS: Basophils # (A) 0.1 k/uL (0-0.2); Basophils % (A) 0 %; Eosinophils # (A) 0.2 k/uL (0-0.7); Eosinophils % (A) 1 %; HCT 40.1 % (39.0-53.0); HGB 11.8 gm/dL (13.0-17.5); Hypochromasia Moderate; Lymphocytes # (A) 0.9 k/uL (1.0-4.8); Lymphocytes % (A) 6 %; MCH 25.6 pg (25.0-35.0); MCHC 29.4 g/dL (31.0-37.0); MCV 87.3 fL (80.0-100.0); Mean Platelet Volume 10.3; Monocytes # (A) 1.8 k/uL (0-1.0); Monocytes % (A) 11 %; Neutrophils # (A) 12.4 k/uL (1.3-7.7); Neutrophils % (A) 80 %; Platelet Count 231 k/uL (150-450); RDW 15.1 % (11.5-15.5); WBC 15.6 k/uL (3.8-10.6)
[2024-03-28 17:13] LABS: INR 1.4 (<1.2); Partial Thromboplastin Time 27.2 sec (22.0-30.0); Prothrombin Time 14.8 sec (10.0-12.5)
[2024-03-28] MEDS ORDERED: NALOXONE 0.4 MG/ML 1 ML VIAL IV PRN (19:50)
[2024-03-28] MEDS: DIPH,PERTUS(ACELL)TETVAC-LF 0.5 ML VIAL IM ONE (22:27)
[2024-03-28] MEDS: FUROSEMIDE 40 MG TAB PO SCH (22:28)
[2024-03-28] MEDS: APIXABAN 5 MG TAB PO SCH (22:28)
[2024-03-28] MEDS: SODIUM CHLORIDE 0.9% 500 ML 500 ML IV STA (22:32)
[2024-03-29] MEDS: GABAPENTIN 300 MG CAP PO SCH (01:57)
[2024-03-29 04:11] LABS: Amphetamine Screen,Urine Not Detected (NotDetected); Barbiturate Screen,Urine Not Detected (NotDetected); Benzodiazepines Screen,Urine Not Detected (NotDetected); Cocaine Screen,Urine Not Detected (NotDetected); Methadone Screen, Urine Not Detected (NotDetected); Opiate Screen,Urine Not Detected (NotDetected); Oxycodone Screen, Urine Not Detected (NotDetected); Phencyclidine Screen,Urine Not Detected (NotDetected); Tricyclic Antidepressant,Urine Not Detected (NotDetected); Urn Cannabinoid Scrn Not Detected (NotDetected)
--- NOTE | 2024-03-29 06:00 | P.CON ---
Consult Note - . Consult date: 03/28/24 Assessment/Plan:: Patient is 84-year-old male history present illness obtained from nurse received report from EMS. Apparently patient was last seen normal around 7:30 AM this morning. He is found at the bottom of a foot of stairs approximately 30 minutes prior to arrival. Patient states he fell hit his head. According to EMS patient was altered upon initial arrival. He had been laying on the ground for several hours. Patient had several abrasions to his lower extremities. Apparently he has history of some cellulitis. Does take anticoagulation medications. Is a poor historian. Unclear what patient's baseline mentation is. Apparently he lives at home with his . Paged out as Level 2 trauma Review of Systems ROS Statement: Those systems with pertinent positive or pertinent negative responses have been documented in the HPI. ROS Other: All systems not noted in ROS Statement are negative. Past Medical History Past Medical History: Atrial Fibrillation, Cancer, Heart Failure, COPD, CVA/TIA, Hyperlipidemia, Hypertension, Osteoarthritis (OA), Pneumonia, Sleep Apnea/CPAP/BIPAP Additional Past Medical History / Comment(s): recent echo, SOB w/exertion, uses CPAP, hx. skin cancer, hx. stroke 2006-no residual effects, pneumonia in 2019, see Dr Moseley H & P History of Any Multi-Drug Resistant Organisms: MRSA Date of last positivie culture/infection: 05/13/19 MDRO Source:: BACK Past Surgical History: AICD, Cardiac Valve Replacement, Heart Catheterization, Hernia Repair, Orthopedic Surgery Additional Past Surgical History / Comment(s): 2nd finger right hand reattached, TAVR 2019 Past Anesthesia/Blood Transfusion Reactions: No Reported Reaction Type of Cardiac Device: AICD Device Placement Date:: 2014 Past Psychological History: No Psychological Hx Reported Smoking Status: Never smoker Past Alcohol Use History: None Reported Past Drug Use History: None Reported - Past Family History Brother(s) Family Medical History: Cancer PHYSICAL EXAM: General Impression: Alert and oriented X 1, no acute distress, disheveled with dirt on feet HEENT: Normocephalic atraumatic, extra-ocular movements intact, pupils equal and reactive to light bilaterally, mucous membranes moist. Cardiovascular: Heart regular rate and rhythm Chest: Able to complete full sentences, no retractions, no tachypnea Abdomen: abdomen soft, non-tender, non-distended, no organomegaly Musculoskeletal: Pulses present and equal in all extremities, plus pitting edema to bilateral extremities Motor: no focal deficits noted Neurological: CN II-XII grossly intact,, aphasic, nondysarthric no focal motor or sensory deficits noted Skin: Abrasions to the lower extremities Psych: Normal affect and mood 84 year old male with fall on blood thinners - Imaging reviewed: No acute process - ok for regular diet - Recommend PT/OT and Social work consults - No acute surgical intervention
[2024-03-29] MEDS: SODIUM CHLORIDE 0.9% 1,000 ML IV SCH (07:42)
[2024-03-29] MEDS: APIXABAN 2.5 MG TABLET PO SCH (09:36)
--- NOTE | 2024-03-29 10:05 | P.HPIM ---
History of Present Illness H&P Date: 03/29/24 Chief Complaint: Syncope This is a 84-year-old male well-known to the practice. Apparently yesterday no one was home and he was out working in his shed. He had either fallen or lost consciousness, he does not recall, and then proceeded to crawl approximately 75 feet. He was down for several hours. He has multiple abrasions and contusions throughout his body. He has congestive heart failure and A-fib and is on apixaban and furosemide. His overall health status has been poor. He has debility and uses a walker or canes to ambulate. His is at bedside. Currently denies any chest pain pressure shortness of breath nausea or vomiting. He is due to have his pacemaker changed tomorrow. Vital signs are essentially normal exception of respiratory rate is elevated. He does have oxygen at home now and his pulse ox 90% on 4 L currently. Laboratory studies show a slight leukocytosis of 15.6 with hemoglobin 11.8. There is left shift. INR is 1.4, BUN and creatinine are slightly elevated showing GFR 41, troponin is abnormal at 0.089 imaging was reviewed but is essentially negative. EKG shows paced rhythm Review of Systems All systems: negative Past Medical History Past Medical History: Atrial Fibrillation, Cancer, Heart Failure, COPD, CVA/TIA, Hyperlipidemia, Hypertension, Osteoarthritis (OA), Pneumonia, Sleep Apnea/CPAP/BIPAP Additional Past Medical History / Comment(s): recent echo, SOB w/exertion, uses CPAP, hx. skin cancer, hx. stroke 2006-no residual effects, pneumonia in 2019, see Dr Moseley H & P, cellulitis History of Any Multi-Drug Resistant Organisms: MRSA Date of last positivie culture/infection: 05/13/19 MDRO Source:: BACK Past Surgical History: AICD, Cardiac Valve Replacement, Heart Catheterization, Hernia Repair, Orthopedic Surgery Additional Past Surgical History / Comment(s): 2nd finger right hand reattached, TAVR 2019 Past Anesthesia/Blood Transfusion Reactions: No Reported Reaction Type of Cardiac Device: AICD Device Placement Date:: 2014 Past Psychological History: No Psychological Hx Reported Smoking Status: Never smoker Past Alcohol Use History: None Reported Past Drug Use History: None Reported - Past Family History Brother(s) Family Medical History: Cancer Medications and Allergies Home Medications Medication Instructions Recorded Confirmed Type Ipratropium-Albuterol Nebulize 3 ml INHALATION RT-QID PRN 08/12/19 03/28/24 History [Duoneb 0.5 mg-3 mg/3 ml Soln] Metoprolol Succinate (ER) [Toprol 50 mg PO DAILY 08/12/19 03/28/24 History XL] Furosemide [Lasix] 40 mg PO BID 03/30/22 03/28/24 History Fluticasone/Umeclidin/Vilanter 1 puff INHALATION RT-DAILY 03/26/24 03/28/24 History [Trelegy Ellipta 100-62.5-25] Rosuvastatin [Crestor] 20 mg PO HS 03/26/24 03/28/24 History Apixaban [Eliquis] 5 mg PO BID 03/28/24 03/28/24 History Ferrous Sulfate [Feosol] 325 mg PO DAILY 03/28/24 03/28/24 History Allergies Allergy/AdvReac Type Severity Reaction Status Date / Time aspirin Allergy Severe throat Verified 03/28/24 20:03 swelling Physical Exam Vitals: Vital Signs Temp Pulse Resp BP Pulse Ox 03/29/24 04:21 70 28 H 136/80 98 03/29/24 02:00 68 22 120/56 93 L 03/28/24 22:00 62 20 127/56 93 L 03/28/24 21:00 62 22 132/61 94 L 03/28/24 19:00 67 18 119/55 93 L 03/28/24 16:15 99.2 F 146/73 03/28/24 16:05 74 20 94 L Intake and Output 03/28/24 03/29/24 03/29/24 22:59 06:59 14:59 Other: Weight 158.757 kg 158.757 kg GENERAL: Elderly obese male well-known to the practice. He is awake alert HEAD: Atraumatic, normocephalic. EYES: Pupils equal round and reactive to light, extraocular movements intact, sclera anicteric, conjunctiva are normal. There are some [facility]:nares patent, oropharynx clear without exudates. Moist mucous membranes. NECK: Normal range of motion, supple without lymphadenopathy or JVD, no thyromegaly LUNGS: Breath sounds slightly coarse no wheezes rales or rhonchi. HEART: Regular rate and rhythm without , rubs or gallops.S1S2 Normal, systolic murmur at the right sternal border ABDOMEN: Soft, nontender, normoactive bowel sounds. No guarding, no rebound. No masses appreciated. EXTREMITIES: Normal range of motion, no pitting or edema. No clubbing or cyanosis. NEUROLOGICAL: Cranial nerves II through XII grossly intact. Normal speech, normal gait. PSYCH: Normal mood, normal affect. SKIN: Warm, Dry, normal turgor, no rashes or lesions noted. Results CBC & Chem 7: 03/28/24 16:10 03/28/24 16:10 Labs: Abnormal Lab Results - Last 24 Hours (Table) 03/28/24 03/28/24 03/28/24 Range/Units 16:10 16:10 16:10 WBC 15.6 H (3.8-10.6) k/uL Hgb 11.8 L (13.0-17.5) gm/dL MCHC 29.4 L (31.0-37.0) g/dL Neutrophils # 12.4 H (1.3-7.7) k/uL Lymphocytes # 0.9 L (1.0-4.8) k/uL Monocytes # 1.8 H (0-1.0) k/uL PT 14.8 H (10.0-12.5) sec INR 1.4 H (<1.2) Chloride 108 H (98-107) mmol/L Carbon Dioxide 18 L (22-30) mmol/L BUN 25 H (9-20) mg/dL Creatinine 1.52 H (0.66-1.25) mg/dL Total Bilirubin 1.9 H (0.2-1.3) mg/dL Creatine Kinase 197 H (55-170) U/L Troponin I (0.000-0.034) ng/mL 03/28/24 Range/Units 16:10 WBC (3.8-10.6) k/uL Hgb (13.0-17.5) gm/dL MCHC (31.0-37.0) g/dL Neutrophils # (1.3-7.7) k/uL Lymphocytes # (1.0-4.8) k/uL Monocytes # (0-1.0) k/uL PT (10.0-12.5) sec INR (<1.2) Chloride (98-107) mmol/L Carbon Dioxide (22-30) mmol/L BUN (9-20) mg/dL Creatinine (0.66-1.25) mg/dL Total Bilirubin (0.2-1.3) mg/dL Creatine Kinase (55-170) U/L Troponin I 0.089 H* (0.000-0.034) ng/mL Thrombosis Risk Factor Assmnt - DVT/VTE Prophylaxis DVT/VTE Prophylaxis: Pharmacologic Prophylaxis ordered (Resume his home medication of Eliquis) Assessment and Plan Plan: Syncope History of pacemaker Paroxysmal atrial fibrillation Congestive heart failure COPD Medical debility Abnormal troponin Stage IIIa chronic renal failure Leukocytosis Will consult cardiology regarding his upcoming pacemaker placement the abnormal troponins, consult neurology regarding his possible syncope episode, trauma is following currently, will repeat labs in a.m., he will be read by the next 24 hours, expect he is going to need ECF placement. He does live at home with his however he may be more care than she is capable of.
--- NOTE | 2024-03-29 10:33 | P.PN ---
Subjective Progress Note Date: 03/29/24 Principal diagnosis: Fall with confusion Patient remains in the ICU as a hold. Doing well today. Complaining of mild bilateral lower extremity pain. States he has restless leg and this causes discomfort. Patient with history of bilateral lower extremity venous stasis and cellulitis. Per the family they believe he crawled on his knees 75 yards to where he was found. They believe he was down after the fall for approximately 2 hours. Imaging shows no acute injury. Objective - Vital Signs Vital signs: Vital Signs Temp 99.2 F 03/28/24 16:15 Pulse 70 03/29/24 04:21 Resp 28 H 03/29/24 04:21 BP 136/80 03/29/24 04:21 Pulse Ox 98 03/29/24 04:21 FiO2 Intake & Output 03/28/24 03/29/24 03/29/24 18:59 06:59 18:59 Weight 158.757 kg 158.757 kg - Exam Abdomen: Soft, nontender, nondistended Bilateral lower extremity with multiple superficial abrasions and venous stasis changes, bilateral lower extremity erythema and significant edema present, bilateral knee tenderness - Labs CBC & Chem 7: 03/28/24 16:10 03/28/24 16:10 Labs: Abnormal Lab Results - Last 24 Hours (Table) 03/28/24 03/28/24 03/28/24 Range/Units 16:10 16:10 16:10 WBC 15.6 H (3.8-10.6) k/uL Hgb 11.8 L (13.0-17.5) gm/dL MCHC 29.4 L (31.0-37.0) g/dL Neutrophils # 12.4 H (1.3-7.7) k/uL Lymphocytes # 0.9 L (1.0-4.8) k/uL Monocytes # 1.8 H (0-1.0) k/uL PT 14.8 H (10.0-12.5) sec INR 1.4 H (<1.2) Chloride 108 H (98-107) mmol/L Carbon Dioxide 18 L (22-30) mmol/L BUN 25 H (9-20) mg/dL Creatinine 1.52 H (0.66-1.25) mg/dL Total Bilirubin 1.9 H (0.2-1.3) mg/dL Creatine Kinase 197 H (55-170) U/L Troponin I (0.000-0.034) ng/mL 03/28/24 Range/Units 16:10 WBC (3.8-10.6) k/uL Hgb (13.0-17.5) gm/dL MCHC (31.0-37.0) g/dL Neutrophils # (1.3-7.7) k/uL Lymphocytes # (1.0-4.8) k/uL Monocytes # (0-1.0) k/uL PT (10.0-12.5) sec INR (<1.2) Chloride (98-107) mmol/L Carbon Dioxide (22-30) mmol/L BUN (9-20) mg/dL Creatinine (0.66-1.25) mg/dL Total Bilirubin (0.2-1.3) mg/dL Creatine Kinase (55-170) U/L Troponin I 0.089 H* (0.000-0.034) ng/mL Assessment and Plan (1) Fall Narrative/Plan: 84-year-old male status post fall for unclear etiology. Await further neurologic workup. No obvious injuries on studies and exam. He does have bilateral knee tenderness. Will order bilateral knee x-ray. Current Visit: Yes Status: Acute Code(s): W19.XXXA - UNSPECIFIED FALL, INITIAL ENCOUNTER SNOMED Code(s): 1732928
--- NOTE | 2024-03-29 11:32 | XR ---
EXAMINATION TYPE: XR knee limited bilateral DATE OF EXAM: 03/29/2024 COMPARISON: None HISTORY: Fall, pain TECHNIQUE: 3 view left knee FINDINGS: There is loss of medial compartment joint space. Medial tibial plateau spurring is present. Lateral compartment joint spaces preserved. Patellofemoral joint space is preserved. Posterior kaur lar spurring superiorly and inferiorly. No joint effusion is evident. No radiopaque foreign bodies ev ident No acute fractures or dislocations evident. Follow up exams can be performed 7-10 days from acute tra viktoria for continued pain. IMPRESSION: 1. No acute osseous abnormality. 2. Degenerative changes medial compartment right knee
--- NOTE | 2024-03-29 11:49 | P.CRDCN ---
History of Present Illness Consult date: 03/29/24 History of present illness: History of Present Illness: The patient is an 84-year-old male with a history of atrial fibrillation, permanent pacemaker implantation, mild to moderate CAD and status post TAVR who is scheduled to undergo generator change by Dr. Moseley and presented after a fall. Apparently he was working in his shed, fell it is unclear if he had a syncopal episode. He crawled back home. He denies any symptoms of chest discomfort, dizziness or palpitations. He does not feel that his breathing is any different yet he is limited in his physical activity. In the past his systolic function was preserved. He has chronic peripheral edema and recent c ellulitis. He has no recent PND nor orthopnea. It is unclear from him or his if he had full syncopal episode. In the emergency room he was noted to have mild troponin elevation. There is no evidence of pacemaker malfunction. His knee x-ray showed no evidence of fracture. Medications: Eliquis 5 mg twice a day, furosemide 40 mg twice a day, metoprolol succinate 50 mg daily, rosuvastatin 20 mg daily, iron, Trelegy Review of Systems: Respiratory: He has history of dyspnea on exertion but no recent wheezing or cough GI: No nausea or vomiting . No history of peptic ulcer disease. No recent GI bleed. : No hematuria or dysuria. Nervous System: No stroke or seizure. Physical Examination: 4-year-old male, obese, alert oriented in no apparent distress,Blood pressure 136/80, Heart rate 70 Head: Normocephalic. Eyes: Sclerae nonicteric. Neck: Good carotid upstroke, no bruit, no jugular venous distention. Lungs: Clear to auscultation. Heart: Regular rate and rhythm, S1-S2, no S3, no rub. Systolic ejection murmur. Abdomen: Soft nontender, positive bowel sounds no organomegaly. Extremities: +2 edema, intact distal pulses, ulceration and discoloration of the lower extremities was noted. Labs: Hemoglobin 11.8, WBC 15.6, BUN 25, creatinine 1.52. Potassium 4.7. Troponin 0.089. Chest x-ray with pulmonary congestion and cardiomegaly EKG: Paced rhythm with occasional PVCs Impression: 1. Fall, possible syncope, details not available 2. Mild troponin elevation with no clear symptoms to suggest acute coronary syndrome. Could reflect type II myocardial injury 3. History of atrial fibrillation, anticoagulated 4. Status post TAVR 5. Status post permanent pacemaker implantation with His bundle pacing, scheduled for generator change. 6. History of mild to moderate CAD by cardiac catheterization in 2019 7. History of hyperlipidemia 8. Acute renal injury Plan: 1. Obtain serial enzymes 2. IV Lasix for 24 hours 3. Continue anticoagulation, beta-rachel and statin 4. Obtain an echocardiogram with Doppler 5. Depending on his progress, further recommendations will be made, thank you for this consult we will follow with you Past Medical History Past Medical History: Atrial Fibrillation, Cancer, Heart Failure, COPD, CVA/TIA, Hyperlipidemia, Hypertension, Osteoarthritis (OA), Pneumonia, Sleep Apnea/CPAP/BIPAP Additional Past Medical History / Comment(s): recent echo, SOB w/exertion, uses CPAP, hx. skin cancer, hx. stroke 2006-no residual effects, pneumonia in 2019, see Dr Moseley H & P, cellulitis History of Any Multi-Drug Resistant Organisms: MRSA Date of last positivie culture/infection: 05/13/19 MDRO Source:: BACK Past Surgical History: AICD, Cardiac Valve Replacement, Heart Catheterization, Hernia Repair, Orthopedic Surgery Additional Past Surgical History / Comment(s): 2nd finger right hand reattached, TAVR 2019 Past Anesthesia/Blood Transfusion Reactions: No Reported Reaction Type of Cardiac Device: AICD Device Placement Date:: 2014 Past Psychological History: No Psychological Hx Reported Smoking Status: Never smoker Past Alcohol Use History: None Reported Past Drug Use History: None Reported - Past Family History Brother(s) Family Medical History: Cancer Medications and Allergies Home Medications Medication Instructions Recorded Confirmed Type Ipratropium-Albuterol Nebulize 3 ml INHALATION RT-QID PRN 08/12/19 03/28/24 History [Duoneb 0.5 mg-3 mg/3 ml Soln] Metoprolol Succinate (ER) [Toprol 50 mg PO DAILY 08/12/19 03/28/24 History XL] Furosemide [Lasix] 40 mg PO BID 03/30/22 03/28/24 History Fluticasone/Umeclidin/Vilanter 1 puff INHALATION RT-DAILY 03/26/24 03/28/24 History [Trelegy Ellipta 100-62.5-25] Rosuvastatin [Crestor] 20 mg PO HS 03/26/24 03/28/24 History Apixaban [Eliquis] 5 mg PO BID 03/28/24 03/28/24 History Ferrous Sulfate [Feosol] 325 mg PO DAILY 03/28/24 03/28/24 History Allergies Allergy/AdvReac Type Severity Reaction Status Date / Time aspirin Allergy Severe throat Verified 03/28/24 20:03 swelling Physical Exam Vitals: Vital Signs Temp Pulse Resp BP Pulse Ox 03/29/24 04:21 70 28 H 136/80 98 03/29/24 02:00 68 22 120/56 93 L 03/28/24 22:00 62 20 127/56 93 L 03/28/24 21:00 62 22 132/61 94 L 03/28/24 19:00 67 18 119/55 93 L 03/28/24 16:15 99.2 F 146/73 03/28/24 16:05 74 20 94 L Intake and Output 03/28/24 03/29/24 03/29/24 22:59 06:59 14:59 Other: Weight 158.757 kg 158.757 kg Results 03/28/24 16:10 03/28/24 16:10 Cardiac Enzymes 03/28/24 03/28/24 Range/Units 16:10 16:10 AST 46 (17-59) U/L Troponin I 0.089 H* (0.000-0.034) ng/mL Coagulation 03/28/24 Range/Units 16:10 PT 14.8 H (10.0-12.5) sec APTT 27.2 (22.0-30.0) sec CBC 03/28/24 Range/Units 16:10 WBC 15.6 H (3.8-10.6) k/uL RBC 4.60 (4.30-5.90) m/uL Hgb 11.8 L (13.0-17.5) gm/dL Hct 40.1 (39.0-53.0) % Plt Count 231 (150-450) k/uL Comprehensive Metabolic Panel 03/28/24 Range/Units 16:10 Sodium 138 (137-145) mmol/L Potassium 4.7 (3.5-5.1) mmol/L Chloride 108 H (98-107) mmol/L Carbon Dioxide 18 L (22-30) mmol/L BUN 25 H (9-20) mg/dL Creatinine 1.52 H (0.66-1.25) mg/dL Glucose 83 (74-99) mg/dL Calcium 8.7 (8.4-10.2) mg/dL AST 46 (17-59) U/L ALT 17 (4-49) U/L Alkaline Phosphatase 123 (38-126) U/L Total Protein 6.8 (6.3-8.2) g/dL Albumin 3.6 (3.5-5.0) g/dL Current Medications Generic Name Dose Route Start Last Admin Trade Name Freq PRN Reason Stop Dose Admin Apixaban 5 mg 03/29/24 21:00 Apixaban 5 Mg Tab PO BID INOCENTE Protocol Atorvastatin Calcium 40 mg 03/29/24 21:00 Atorvastatin 40 Mg Tab PO HS [facility] Gabapentin 300 mg 03/28/24 23:30 03/29/24 01:57 Gabapentin 300 Mg Cap PO 300 mg HS INOCENTE Administration Sodium Chloride 1,000 mls @ 20 mls/hr 03/28/24 20:00 03/29/24 07:42 Saline 0.9% IV Not Given .Q24H [facility] Metoprolol Succinate 50 mg 03/29/24 10:45 Metoprolol Succinate (Er) 50 Mg Tab.Er.24h PO DAILY [facility] Naloxone HCl 0.2 mg 03/28/24 19:50 Naloxone 0.4 Mg/Ml 1 Ml Vial IV Q2M PRN Opioid Reversal Intake and Output 03/28/24 03/29/24 03/29/24 22:59 06:59 14:59 Other: Weight 158.757 kg 158.757 kg Patient Weight 03/30/24 06:59 Weight 158.757 kg 03/28/24 16:10 03/28/24 16:10
[2024-03-29] MEDS: METOPROLOL SUCCINATE (ER) 50 MG TAB.ER.24H PO SCH (12:28)
--- NOTE | 2024-03-29 13:36 | P.CNNES ---
History of Present Illness Consult date: 03/29/24 Requesting physician: Blaise Park Reason for Consult: syncope History of Present Illness: This is an 84-year-old gentleman with history of in 2006 without any residual deficits, congestive heart failure, severe shortness of breath on nasal cannula, atrial fibrillation on Eliquis, status post AICD, cellulitis in the emergency department because of fall. Some of the history is obtained from the patient's . Seems that yesterday in the afternoon patient had lunch then went to his shop which is 75 yards away from his house and there is seems that he passed out and he does not remember passing out and denies any symptoms prior to the episode. And then this was witnessed and as a result he called back to his house and had scrapes all around his predominantly lower extremity and was in pain. Patient has underlying congestive heart failure as well as severe shortness of breath and is on 2 L of nasal cannula compliant using it and yesterday he was not using it when he went to his shop. stated that he is always short of breath. Patient feels he should be on a higher dose of nasal cannula than 2 L. He denies of any headache, neck pain lower back pain. Denies any focal deficit. Denies of any history of seizure. He had a remote stroke in the past without any residual deficit. He is supposed to have tomorrow his pacemaker battery replaced. It seems that he has underlying cellulitis recently of the left leg more than the right and has been on antibiotic about a month ago. Per the his walk is somewhat unsteady. Denies missing his Eliquis. Some of this Hospital Visit Consisted of: Blood cell is 15.6 and predominant neutrophilic. All is 1.52 Serum glucose is 83 Calcium is 8.7 TSH is 1.6.0 Troponin is 0.089 CK level is 197. CT Head is reported as age-related atrophy and chronic small vessel ischemic change without acute intracranial seen at this time. I personally reviewed the CT and agree with read. CT cervical spine reported as no evidence for acute fracture or subluxation of the cervical spine. CT angiography of the head and neck is reported as diminished branch vessel left MCA territory. Otherwise, no significant diameter reduction to account for patient's symptoms. Cardiomegaly with pulmonary venous congestion and small effusion. I attempted to review the image and I felt there is a lot of artifact but felt the left M1 and M2 vessel was patent in my opinion. The ED team did not feel the patient had any focal deficit on the right and did comment on the CT angiography on presentation. Review of Systems The positive and negative as per HPI. Past Medical History Past Medical History: Atrial Fibrillation, Cancer, Heart Failure, COPD, CVA/TIA, Hyperlipidemia, Hypertension, Osteoarthritis (OA), Pneumonia, Sleep Apnea/CPAP/BIPAP Additional Past Medical History / Comment(s): recent echo, SOB w/exertion, uses CPAP, hx. skin cancer, hx. stroke 2006-no residual effects, pneumonia in 2019, see Dr Moseley H & P, cellulitis History of Any Multi-Drug Resistant Organisms: MRSA Date of last positivie culture/infection: 05/13/19 MDRO Source:: BACK Past Surgical History: AICD, Cardiac Valve Replacement, Heart Catheterization, Hernia Repair, Orthopedic Surgery Additional Past Surgical History / Comment(s): 2nd finger right hand reattached, TAVR 2019 Past Anesthesia/Blood Transfusion Reactions: No Reported Reaction Type of Cardiac Device: AICD Device Placement Date:: 2014 Past Psychological History: No Psychological Hx Reported Smoking Status: Never smoker Past Alcohol Use History: None Reported Past Drug Use History: None Reported - Past Family History Brother(s) Family Medical History: Cancer Medications and Allergies Home Medications Medication Instructions Recorded Confirmed Type Ipratropium-Albuterol Nebulize 3 ml INHALATION RT-QID PRN 08/12/19 03/28/24 History [Duoneb 0.5 mg-3 mg/3 ml Soln] Metoprolol Succinate (ER) [Toprol 50 mg PO DAILY 08/12/19 03/28/24 History XL] Furosemide [Lasix] 40 mg PO BID 03/30/22 03/28/24 History Fluticasone/Umeclidin/Vilanter 1 puff INHALATION RT-DAILY 03/26/24 03/28/24 History [Trelegy Ellipta 100-62.5-25] Rosuvastatin [Crestor] 20 mg PO HS 03/26/24 03/28/24 History Apixaban [Eliquis] 5 mg PO BID 03/28/24 03/28/24 History Ferrous Sulfate [Feosol] 325 mg PO DAILY 03/28/24 03/28/24 History Allergies Allergy/AdvReac Type Severity Reaction Status Date / Time aspirin Allergy Severe throat Verified 03/28/24 20:03 swelling Physical Examination - Vital Signs Vital Signs: Vital Signs Temp Pulse Resp BP Pulse Ox 03/29/24 12:29 69 16 127/57 99 03/29/24 04:21 70 28 H 136/80 98 03/29/24 02:00 68 22 120/56 93 L 03/28/24 22:00 62 20 127/56 93 L 03/28/24 21:00 62 22 132/61 94 L 03/28/24 19:00 67 18 119/55 93 L 03/28/24 16:15 99.2 F 146/73 03/28/24 16:05 74 20 94 L Intake and Output 03/28/24 03/29/24 03/29/24 22:59 06:59 14:59 Other: Weight 158.757 kg 158.757 kg GENERAL: The patient is lying in bed and is not in acute distress. CHEST: Had edema in lower extremities.. LUNG: Has severe wheeze even without auscultation. NEUROLOGICAL: Higher mental function: The patient is awake, alert, oriented to self, place but not time. Patient is following simple commands. No aphasia and no neglect. Cranial nerves: The pupils are round, equal and reactive to light and accommodation. Visual sanchez are full to confrontation throughout. Extraocular movement is intact no nystagmus is noted. Facial sensation is normal to touch throughout. The facial strength is normal throughout. Hearing is normal bilaterally to hand rub. Tongue is midline and moved [id number] without any difficulty. No dysarthria is noted. Shoulder shrug is normal bilaterally. Motor: The strength is 5 over 5 throughout uppers. While lowers is limited because of pain and has a lot of scrapes (from crawaling on floor yesterday) and with limitation was lifting the right lower above gravity more than left. Normal tone and bulk. Cerebellum: Normal finger to nose bilaterally. Sensation: Limited in assessment because of cooperation. Reflexes (right/left): Patient refused reflex. I attempted once but refused.. Plantars are mute bilaterally. Results - Laboratory Findings CBC and BMP: 03/28/24 16:10 03/28/24 16:10 Abnormal Lab Findings: Abnormal Labs 03/28/24 03/28/24 03/28/24 16:10 16:10 16:10 WBC 15.6 H Hgb 11.8 L MCHC 29.4 L Neutrophils # 12.4 H Lymphocytes # 0.9 L Monocytes # 1.8 H PT 14.8 H INR 1.4 H Chloride 108 H Carbon Dioxide 18 L BUN 25 H Creatinine 1.52 H Total Bilirubin 1.9 H Creatine Kinase 197 H Troponin I 03/28/24 03/29/24 16:10 11:42 WBC Hgb MCHC Neutrophils # Lymphocytes # Monocytes # PT INR Chloride Carbon Dioxide BUN Creatinine Total Bilirubin Creatine Kinase Troponin I 0.089 H* 0.096 H* Assessment and Plan Assessment: This is an 84-year-old gentleman with history of congestive heart failure, dyspnea at baseline and is not compliant using his nasal cannula who presents because of syncopal episode at home. Patient had a syncopal episode and crawl back to his home 75 yards and was not using his nasal cannula at that time. He denies any history of seizure. Examination patient was wheezing that seemed significant even without auscultation and per the she stated that is baseline. Syncopal episode likely due to hypoxia since not compliant using his nasal canuli. Imaging showing cardiomegaly with pulmonary venous congestion Severe dysnpea and is using wheezing without auscultation Diminished branch vessel left MCA on CTA and I agree with ED attending there is no focal deficit on right. I felt imaging showing artifact and felt Left M1/M2 is patent. Underlying history of congestive heart failure History of atrial fibrillation on Eliquis status post AICD patient supposed to have his AICD battery replaced tomorrow History of stroke in 2006 without any residual deficit Acute kidney injury History of mild to moderate coronary artery disease Status post TAVR Plan: I ordered a routine EEG but I doubt this is a seizure. Cannot obtain MRI of the brain since the patient has AICD If patient has any focal deficits recommend repeating CT of the head Cardiology is on board and they ordered 2D echo and placed the patient on Lasix Patient is on Eliquis 5 mg twice daily. Patient is on Lipitor 40 mg nightly Patient was counseled on using his nasal cannula on a regular basis. Defer the rest of the medical management to primary and other specialist next Plan discussed with the patient and his was at bedside. Dr. Loza will resume neurology service tomorrow A.M. Time with Patient: Greater than 30
[2024-03-29] MEDS: NYSTATIN 100,000 UNIT/GM POWD 15 GM TOPICAL SCH (16:58)
[2024-03-29] MEDS: ATORVASTATIN 40 MG TAB PO SCH (20:58)
[2024-03-29] MEDS: FUROSEMIDE 10 MG/ML 4 ML VIAL IV SCH (21:00)
[2024-03-29] MEDS: APIXABAN 5 MG TAB PO SCH (21:00)
[2024-03-30 09:53] LABS: Basophils % (A) 0 %; Eosinophils # (A) 0.3 k/uL (0-0.7); Eosinophils % (A) 3 %; HCT 37.7 % (39.0-53.0); HGB 10.7 gm/dL (13.0-17.5); Hypochromasia Marked; Lymphocytes # (A) 0.7 k/uL (1.0-4.8); Lymphocytes % (A) 7 %; MCH 25.6 pg (25.0-35.0); MCHC 28.4 g/dL (31.0-37.0); Mean Platelet Volume 9.3; Monocytes # (A) 1.2 k/uL (0-1.0); Monocytes % (A) 12 %; Neutrophils # (A) 7.8 k/uL (1.3-7.7); Neutrophils % (A) 76 %; Platelet Count 162 k/uL (150-450); RBC 4.19 m/uL (4.30-5.90); RDW 14.9 % (11.5-15.5); WBC 10.2 k/uL (3.8-10.6)
[2024-03-30 10:17] LABS: ALT 38 U/L (4-49); AST 103 U/L (17-59); African American GFR (CKD) 60 (>60 ml/min/1.73 sqM); Alkaline Phosphatase 107 U/L (38-126); Anion Gap 3 mmol/L; Blood Urea Nitrogen 27 mg/dL (9-20); Carbon Dioxide 32 mmol/L (22-30); Chloride 109 mmol/L (98-107); Glucose 96 mg/dL (74-99); Non-African American GFR(CKD) 52 (>60 ml/min/1.73 sqM); Potassium 3.7 mmol/L (3.5-5.1); Sodium 144 mmol/L (137-145); Total Bilirubin 1.9 mg/dL (0.2-1.3)
--- NOTE | 2024-03-30 11:31 | P.PN ---
Subjective HISTORY OF PRESENT ILLNESS: The patient is an 84-year-old male with a history of atrial fibrillation, permanent pacemaker implantation, mild to moderate CAD and status post TAVR who is scheduled to undergo generator change by Dr. Moseley and presented after a fall. Apparently he was working in his shed, fell it is unclear if he had a syncopal episode. He crawled back home. He denies any symptoms of chest discomfort, dizziness or palpitations. He does not feel that his breathing is any different yet he is limited in his physical activity. In the past his systolic function was preserved. He has chronic peripheral edema and recent cellulitis. He has no recent PND nor orthopnea. It is unclear from him or his if he had full syncopal episode. In the emergency room he was noted to have mild troponin elevation. There is no evidence of pacemaker malfunction. His knee x-ray showed no evidence of fracture. Medications: Eliquis 5 mg twice a day, furosemide 40 mg twice a day, metoprolol succinate 50 mg daily, rosuvastatin 20 mg daily, iron, Trelegy 03/30/2024 Patient examined this morning at the bedside. Patient currently denies chest pain or pressure. He reports mild shortness of breath. Vital signs are stable. PHYSICAL EXAM: VITAL SIGNS: Reviewed. GENERAL: Well-developed in no acute distress. NECK: Supple. No JVD or thyromegaly LUNGS: Respirations even and unlabored. Lungs essentially clear to auscultation bilaterally. HEART: Regular rate and rhythm. S1 and S2 heard. Systolic murmur noted. EXTREMITIES: Normal range of motion. No clubbing or cyanosis. Peripheral pulses intact. 2-3+ bilateral lower extremity edema with ulcerations noted. ASSESSMENT: Syncope Acute on chronic heart failure with preserved EF Persistent atrial fibrillation, on Eliquis Acute kidney injury Elevated troponins, likely acute myocardial injury without ischemia, secondary to LUIS A History of aortic stenosis with TAVR Status post permanent pacemaker implantation with His bundle pacing, scheduled for generator change Mild to moderate CAD by cardiac catheterization 2018 Hyperlipidemia PLAN: 2D echo ordered. Await results. Continue current cardiac medications Continue IV Lasix 40 mg every 12 hours Continue telemetry monitoring Interrogate pacemaker Patient will undergo pacemaker generator change when he is medically stable Further recommendations pending patient course Nurse practitioner note has been reviewed by physician. Signing provider agrees with the documented findings, assessment, and plan of care documented by TECHNICAL LEAD as a scribe. Objective - Vital Signs Vital signs: Vital Signs Temp 97.6 F 03/30/24 07:58 Pulse 75 03/30/24 07:58 Resp 24 03/30/24 07:58 BP 141/65 03/30/24 07:58 Pulse Ox 96 03/30/24 07:58 FiO2 Intake & Output 03/29/24 03/30/24 03/30/24 18:59 06:59 18:59 Intake Total 140 10 Output Total 300 2075 Balance -160 -207 10 Weight 158.757 kg 90 kg Intake: IV 10 Invasive Line 1 10 Intake, IV Titration 20 Amount Sodium Chloride 0.9% 1, 20 000 ml @ 20 mls/hr IV . Q24H COUNT INCLUDES THE [facility] Rx#:[id number] Oral 120 0 Output: Urine 300 2075 Other: Voiding Method Urinal Urinal # Voids 1 - Labs CBC & Chem 7: 03/30/24 08:45 03/30/24 08:45 Labs: Abnormal Lab Results - Last 24 Hours (Table) 03/29/24 03/29/24 03/30/24 Range/Units 11:42 15:00 08:45 RBC 4.19 L (4.30-5.90) m/uL Hgb 10.7 L (13.0-17.5) gm/dL Hct 37.7 L (39.0-53.0) % MCHC 28.4 L (31.0-37.0) g/dL Neutrophils # 7.8 H (1.3-7.7) k/uL Lymphocytes # 0.7 L (1.0-4.8) k/uL Monocytes # 1.2 H (0-1.0) k/uL Chloride (98-107) mmol/L Carbon Dioxide (22-30) mmol/L BUN (9-20) mg/dL Calcium (8.4-10.2) mg/dL Total Bilirubin (0.2-1.3) mg/dL AST (17-59) U/L Troponin I 0.096 H* 0.084 H* (0.000-0.034) ng/mL Total Protein (6.3-8.2) g/dL Albumin (3.5-5.0) g/dL 03/30/24 Range/Units 08:45 RBC (4.30-5.90) m/uL Hgb (13.0-17.5) gm/dL Hct (39.0-53.0) % MCHC (31.0-37.0) g/dL Neutrophils # (1.3-7.7) k/uL Lymphocytes # (1.0-4.8) k/uL Monocytes # (0-1.0) k/uL Chloride 109 H (98-107) mmol/L Carbon Dioxide 32 H (22-30) mmol/L BUN 27 H (9-20) mg/dL Calcium 8.0 L (8.4-10.2) mg/dL Total Bilirubin 1.9 H (0.2-1.3) mg/dL AST 103 H (17-59) U/L Troponin I (0.000-0.034) ng/mL Total Protein 6.0 L (6.3-8.2) g/dL Albumin 3.0 L (3.5-5.0) g/dL
--- NOTE | 2024-03-30 14:21 | EEG ---
ELECTROENCEPHALOGRAM REPORT PREAMBLE: This is an 84-year-old male with syncope, rule out seizure. CURRENT MEDICATIONS: 1. Eliquis. 2. Lipitor. 3. Neurontin. 4. Toprol-XL. EEG FINDINGS: This is a 21-channel digital EEG recorded with video component, utilizing 10/20 international system with referential and bipolar montages. Background consists of moderately well-developed, but not very well regulated, mixed frequencies of low amplitude 6 hertz theta intermixed with some 2 to 3 hertz delta activity seen in the posterior head region. Occasional background reaches alpha rhythm as well. Background does not seem to be reactive to eye opening or closing. Photic driving response was not seen. Drowsiness was seen with appearance of bilaterally symmetric theta frequency rhythm. Deeper stages of sleep were not clearly seen. No focal or generalized epileptiform activity was seen. IMPRESSION: This is an abnormal EEG due to background slowing of mild to moderately degree, suggestive of encephalopathy related to metabolic, vascular or degenerative causes. No focal, lateralized, or epileptiform activity was seen. MMTORYL / IJN: [id number] / [facility] HOSPITALAllison
--- NOTE | 2024-03-30 15:00 | P.PN ---
Subjective Progress Note Date: 03/30/24 CHIEF COMPLAINT: Fall with confusion HISTORY OF PRESENT ILLNESS: Patient currently on the cardiac floor. He has no new complaints. He has scrapes noted along both bilateral lower extremities. X-ray done on the right knee showed no acute process and degenerative changes. Patient denies any abdominal pain. Denies any nausea or vomiting. Patient follows with both cardiology and neurology service. Afebrile. WBC 10.2 Hgb 10.7 PHYSICAL EXAM: VITAL SIGNS: Reviewed. GENERAL: Well-developed in no acute distress. ABDOMEN: Soft. Nondistended. Nontender. NEUROLOGIC: Awake and alert Extremities skin abrasions noted on the knees lower extremities ASSESSMENT: 1. Fall 2. Bilateral knee pain with abrasions PLAN: -Continue supportive care -Continue cardiology and neurology workup -Encourage patient to work with physical therapy Physician Animal Laboratory Helper note has been reviewed by physician. Signing provider agrees with the documented findings, assessment, and plan of care. I have personally seen and examined the patient, reviewed the [employer] /PAs history, exam and MDM and agree with the assessment and plan as written. Based on total visit time, I have performed more than 50% of the visit. As above: Patient doing well today. Denies pain. Knee x-rays negative. No surgical intervention planned. Will sign off. Please call if needed. Objective - Vital Signs Vital signs: Vital Signs Temp 97.5 F L 03/30/24 11:28 Pulse 74 03/30/24 11:28 Resp 20 03/30/24 11:28 BP 89/54 03/30/24 11:28 Pulse Ox 98 03/30/24 11:28 FiO2 Intake & Output 03/29/24 03/30/24 03/30/24 18:59 06:59 18:59 Intake Total 140 370 Output Total 300 2075 Balance -160 -2074 370 Weight 158.757 kg 90 kg Intake: IV 10 Invasive Line 1 10 Intake, IV Titration 20 Amount Sodium Chloride 0.9% 1, 20 000 ml @ 20 mls/hr IV . Q24H [facility] Rx#:[id number] Oral 120 360 Output: Urine 300 2075 Other: Voiding Method Urinal Urinal # Voids 1 - Labs CBC & Chem 7: 03/30/24 08:45 03/30/24 08:45 Labs: Abnormal Lab Results - Last 24 Hours (Table) 03/29/24 03/30/24 03/30/24 Range/Units 15:00 08:45 08:45 RBC 4.19 L (4.30-5.90) m/uL Hgb 10.7 L (13.0-17.5) gm/dL Hct 37.7 L (39.0-53.0) % MCHC 28.4 L (31.0-37.0) g/dL Neutrophils # 7.8 H (1.3-7.7) k/uL Lymphocytes # 0.7 L (1.0-4.8) k/uL Monocytes # 1.2 H (0-1.0) k/uL Chloride 109 H (98-107) mmol/L Carbon Dioxide 32 H (22-30) mmol/L BUN 27 H (9-20) mg/dL Calcium 8.0 L (8.4-10.2) mg/dL Total Bilirubin 1.9 H (0.2-1.3) mg/dL AST 103 H (17-59) U/L Troponin I 0.084 H* (0.000-0.034) ng/mL Total Protein 6.0 L (6.3-8.2) g/dL Albumin 3.0 L (3.5-5.0) g/dL
--- NOTE | 2024-03-30 16:21 | CA ---
Transthoracic Echo Report Name: Honorio Rodriguez Age: 84 Gender: M : 1940 Exam Date: 03/30/2024 14:52 Exam Location: [place] [facility] Ht (in): 70 Wt (lb): 350 Ordering Physician: Amaury Rios MD ([id number]) Attending/Referring Phys: Curb Setter Sara Baca RDCS Procedure CPT: Indications: AVr Cardiac Hx: Technical Quality: Technically difficult study Contrast 1: Definity Total Dose (mL): 2 Contrast 2: Total Dose (mL): MEASUREMENTS (Male / Female) Normal Values 2D ECHO LV Diastolic Diameter PLAX 4.3 cm 4.2 - 5.9 / 3.9 - 5.3 cm IVS Diastolic Thickness 1.3 cm 0.6 - 1.0 / 0.6 - 0.9 cm LVPW Diastolic Thickness 1.7 cm 0.6 - 1.0 / 0.6 - 0.9 cm LV Relative Wall Thickness 0.7 LVOT Diameter 2.3 cm LV Diastolic Volume MOD BP 151.7 cm??? 67 - 155 / 56 - 104 cm??? LV Systolic Volume MOD BP 68.1 cm??? 22 - 58 / 19 - 49 cm??? LV Ejection Fraction MOD BP 55.1 % >= 55 % LV Cardiac Index MOD BP 1997.3 cm???/min???m??? LV Diastolic Volume MOD 4C 149.5 cm??? LV Systolic Volume MOD 4C 65.8 cm??? LV Ejection Fraction MOD 4C 56.0 % LV Cardiac Index MOD 4C 1999.5 cm???/min???m??? LV Diastolic Length 4C 9.3 cm LV Systolic Length 4C 7.8 cm LV Diastolic Volume MOD 2C 151.3 cm??? LV Systolic Volume MOD 2C 69.5 cm??? LV Ejection Fraction MOD 2C 54.1 % LV Cardiac Index MOD 2C 1955.4 cm???/min???m??? LV Diastolic Length 2C 9.4 cm LV Systolic Length 2C 7.7 cm Ascending Aorta Diameter 4.2 cm DOPPLER AV Peak Velocity 278.1 cm/s AV Peak Gradient 30.9 mmHg AV Mean Velocity 196.2 cm/s AV Mean Gradient 17.1 mmHg AV Velocity Time Integral 61.5 cm LVOT Peak Velocity 116.0 cm/s LVOT Peak Gradient 5.4 mmHg LVOT Velocity Time Integral 24.8 cm LVOT Stroke Volume 100.2 cm??? LVOT Stroke Volume Index 37.9 ml/m??? LVOT Cardiac Index 2396.0 cm???/min???m??? AV Area Cont Eq vti 1.6 cm??? AV Area Cont Eq pk 1.7 cm??? TR Peak Velocity 253.8 cm/s TR Peak Gradient 25.8 mmHg Right Atrial Pressure 20.0 mmHg Pulmonary Artery Systolic Pressu 45.8 mmHg Right Ventricular Systolic Press 45.8 mmHg PV Peak Velocity 68.9 cm/s PV Peak Gradient 1.9 mmHg FINDINGS Left Ventricle Left ventricular ejection fraction is estimated at 55 %. Mildly increased septal wall thickness. Mildly increased left ventricular systolic volume. Left ventricular cavity size normal. No obvious regional wall motion abnormalities. Right Ventricle Right ventricle not well visualized. Mildly elevated right ventricular systolic pressure. Right Atrium Right atrium not well visualized. Catheter/pacemaker wire in the right atrial cavity. Left Atrium Left atrium not well visualized. Mitral Valve Mitral valve thickened. Mitral annular calcification. No evidence for mitral valve prolapse. No mitral stenosis. Trace mitral regurgitation. Aortic Valve Bioprosthetic aortic valve with a peak velocity of 2.8 m/s and a mean gradient of 18 mmHg. No aortic regurgitation. Tricuspid Valve Structurally normal tricuspid valve. No tricuspid stenosis. Mild tricuspid regurgitation. Pulmonic Valve Pulmonic valve not well visualized. No pulmonic stenosis. No pulmonic regurgitation. Pericardium No pericardial effusion. Aorta Aortic annulus normal. Ascending aorta mildly enlarged. CONCLUSIONS Technically difficult study. Left ventricular ejection fraction is estimated at 55 %. No obvious regional wall motion abnormality Normal LV cavity size. Mild concentric LVH Other chambers not well-visualized Bioprosthetic aortic valve with mean gradient of 18 mmHg. No regurgitation or paravalvular leak appreciated Mild mitral annular calcification Previewed by: Dr Bishnu Carter (Electronically Signed) Final Date: 30 March 2024 16:20
[2024-03-30] MEDS: IPRATROPIUM-ALBUTEROL 3 ML NEB INHALATION SCH (16:24)
--- NOTE | 2024-03-30 19:03 | P.PN ---
Progress Note - Text Interrogation of BiV ICD Berkowitz Omara Ines model #3365-40 Q, [employer] MACHINE FEEDER-D No arrhythmias detected RV pacing threshold 1.5 V at 0.5 ms, pacing impedance 300 ohms LV pacing threshold 0.75 V at 0.5 ms, pace impedance 410 ohms High-voltage impedance 53 ohms Device at JENNY since 10 October Plan if patient is stable and healing well then I am considering a generator change this as an inpatient
--- NOTE | 2024-03-30 20:26 | P.PN ---
Subjective Progress Note Date: 03/30/24 Patient was seen for follow-up. Patient initially seen by Dr. Alberto Martinez. Please refer to his note for details. Patient is presented with syncope. Patient probably has some degree of hypoxia, since he was not using his home nasal cannula for oxygen. He is also wheezing. Patient is laying comfortably in the bed. He states he takes couple pain pills as both legs hurt. Both legs have tendency to jump up and down. Some of this Hospital Visit Consisted of: Blood cell is 15.6 and predominant neutrophilic. All is 1.52 Serum glucose is 83 Calcium is 8.7 TSH is 1.6.0 Troponin is 0.089 CK level is 197. CT Head is reported as age-related atrophy and chronic small vessel ischemic change without acute intracranial seen at this time. I personally reviewed the CT and agree with read. CT cervical spine reported as no evidence for acute fracture or subluxation of the cervical spine. CT angiography of the head and neck is reported as diminished branch vessel left MCA territory. Otherwise, no significant diameter reduction to account for patient's symptoms. Cardiomegaly with pulmonary venous congestion and small effusion. The ED team did not feel the patient had any focal deficit on the right and did comment on the CT angiography on presentation. Objective - Vital Signs Vital signs: Vital Signs Temp 98.1 F 03/30/24 16:58 Pulse 70 03/30/24 16:58 Resp 22 03/30/24 16:58 BP 156/55 03/30/24 16:58 Pulse Ox 98 03/30/24 16:58 FiO2 Intake & Output 03/30/24 03/30/24 03/31/24 06:59 18:59 06:59 Intake Total 1150 Output Total 2075 100 275 Balance -2074 1050 -275 Weight 90 kg Intake: IV 10 Invasive Line 1 10 Oral 1140 Output: Urine 2074 100 275 Other: Voiding Method Urinal Urinal # Voids 1 2 - Exam Patient's mental status, speech and language functions are normal. Muscle strength is normal. Patient has edema of the lower extremities, some bruises and redness of the sams anteriorly. Mental status is normal. Patient is slightly short of breath. On checking pronator drift, patient arms gets tired and he drops it down. Not able to check for myoclonic jerks. - Labs CBC & Chem 7: 03/30/24 08:45 03/30/24 08:45 Labs: Abnormal Lab Results - Last 24 Hours (Table) 03/30/24 03/30/24 Range/Units 08:45 08:45 RBC 4.19 L (4.30-5.90) m/uL Hgb 10.7 L (13.0-17.5) gm/dL Hct 37.7 L (39.0-53.0) % MCHC 28.4 L (31.0-37.0) g/dL Neutrophils # 7.8 H (1.3-7.7) k/uL Lymphocytes # 0.7 L (1.0-4.8) k/uL Monocytes # 1.2 H (0-1.0) k/uL Chloride 109 H (98-107) mmol/L Carbon Dioxide 32 H (22-30) mmol/L BUN 27 H (9-20) mg/dL Calcium 8.0 L (8.4-10.2) mg/dL Total Bilirubin 1.9 H (0.2-1.3) mg/dL AST 103 H (17-59) U/L Total Protein 6.0 L (6.3-8.2) g/dL Albumin 3.0 L (3.5-5.0) g/dL Assessment and Plan Assessment: This is an 84-year-old gentleman with history of congestive heart failure, dyspnea at baseline and is not compliant using his nasal cannula who presents b ecause of syncopal episode at home. Patient had a syncopal episode and crawl back to his home 75 yards and was not using his nasal cannula at that time. He denies any history of seizure. Examination patient was wheezing that seemed significant even without auscultation and per the she stated that is baseline. Syncopal episode likely due to hypoxia since not compliant using his nasal can anyi. Imaging showing cardiomegaly with pulmonary venous congestion Severe dysnpea and is wheezing without auscultation Diminished branch vessel left MCA on CTA and I agree with ED attending there is no focal deficit on right. I felt imaging showing artifact and felt Left M1/M2 is patent. Underlying history of congestive heart failure History of atrial fibrillation on Eliquis status post AICD patient supposed to have his AICD battery replaced tomorrow Possible restless legs. History of stroke in 2006 without any residual deficit Acute kidney injury History of mild to moderate coronary artery disease Status post TAVR Elevated cardiac enzymes. Plan: EEG was performed, which was abnormal due to background slowing of mild to moderate degree, suggestive of encephalopathy. No focal, lateralized or epileptiform activity was seen. Cannot obtain MRI of the brain since the patient has AICD Patient is complaining of restless legs. We will check iron, TIBC, B12, folate. Start Requip 0.25 mg at bedtime for possible restless legs. Patient informed about possibility of drowsiness, and worsening of edema. Cardiology is on board and they ordered 2D echo and placed the patient on Lasix Patient is on Eliquis 5 mg twice daily. Patient is on Lipitor 40 mg nightly Patient was counseled on using his nasal cannula on a regular basis. Defer the rest of the medical management to primary and other specialist Neurologically clear.
[2024-03-31] MEDS: IPRATROPIUM-ALBUTEROL 3 ML NEB INHALATION PRN (03:47)
[2024-03-31 05:07] LABS: % Iron Saturation 6.9 (15.00-50.00)
[2024-03-31 08:51] LABS: African American GFR (CKD) 75 (>60 ml/min/1.73 sqM); Anion Gap 3 mmol/L; Blood Urea Nitrogen 26 mg/dL (9-20); Calcium 7.8 mg/dL (8.4-10.2); Carbon Dioxide 32 mmol/L (22-30); Chloride 107 mmol/L (98-107); Glucose 137 mg/dL (74-99); Non-African American GFR(CKD) 65 (>60 ml/min/1.73 sqM); Potassium 3.4 mmol/L (3.5-5.1); Sodium 142 mmol/L (137-145)
--- NOTE | 2024-03-31 12:17 | P.PN ---
Subjective HISTORY OF PRESENT ILLNESS: The patient is an 84-year-old male with a history of atrial fibrillation, permanent pacemaker implantation, mild to moderate CAD and status post TAVR who is scheduled to undergo generator change by Dr. Moseley and presented after a fall. Apparently he was working in his shed, fell it is unclear if he had a syncopal episode. He crawled back home. He denies any symptoms of chest discomfort, dizziness or palpitations. He does not feel that his breathing is any different yet he is limited in his physical activity. In the past his systolic function was preserved. He has chronic peripheral edema and recent cellulitis. He has no recent PND nor orthopnea. It is unclear from him or his if he had full syncopal episode. In the emergency room he was noted to have mild troponin elevation. There is no evidence of pacemaker malfunction. His knee x-ray showed no evidence of fracture. Medications: Eliquis 5 mg twice a day, furosemide 40 mg twice a day, metoprolol succinate 50 mg daily, rosuvastatin 20 mg daily, iron, Trelegy 03/30/2024 Patient examined this morning at the bedside. Patient currently denies chest pain or pressure. He reports mild shortness of breath. Vital signs are stable. March 31 2024 Patient examined this morning at the bedside. Patient currently denies chest pain or pressure. He reports improvement in his shortness of breath. He continues to have lower extremity edema. Pacemaker was interrogated with no significant events noted. Echocardiogram completed revealing ejection fraction 55%, bioprosthetic aortic valve with a mean gradient of 18 mmHg, no aortic regurgitation, mild tricuspid regurgitation PHYSICAL EXAM: VITAL SIGNS: Reviewed. GENERAL: Well-developed in no acute distress. NECK: Supple. No JVD or thyromegaly LUNGS: Respirations even and unlabored. Lungs essentially clear to auscultation bilaterally. HEART: Regular rate and rhythm. S1 and S2 heard. Systolic murmur noted. EXTREMITIES: Normal range of motion. No clubbing or cyanosis. Peripheral p ulses intact. 2+ bilateral lower extremity edema with ulcerations noted. ASSESSMENT: Syncope Acute on chronic heart failure with preserved EF Persistent atrial fibrillation, on Eliquis Acute kidney injury, improved Elevated troponins, likely acute myocardial injury without ischemia, secondary to LUIS A History of aortic stenosis with TAVR Status post permanent pacemaker implantation with His bundle pacing, scheduled for generator change Mild to moderate CAD by cardiac catheterization 2018 Hyperlipidemia PLAN: . Continue current cardiac medications Continue IV Lasix 40 mg every 12 hours Continue telemetry monitoring Patient will tentatively undergo device generator change on with Dr. Moseley Further recommendations pending patient course Nurse practitioner note has been reviewed by physician. Signing provider agrees with the documented findings, assessment, and plan of care documented by BULL DRIVER as a scribe. Objective - Vital Signs Vital signs: Vital Signs Temp 97.8 F 03/31/24 11:51 Pulse 72 03/31/24 12:07 Resp 16 03/31/24 11:51 BP 126/56 03/31/24 11:51 Pulse Ox 98 03/31/24 11:51 FiO2 Intake & Output 03/30/24 03/31/24 03/31/24 18:59 06:59 18:59 Intake Total 1150 590 Output Total 100 1300 Balance 1050 -1300 590 Weight 88 kg Intake: IV 10 Invasive Line 1 10 Oral 1140 590 Output: Urine 100 1300 Other: Voiding Method Urinal Urinal Urinal # Voids 2 1 # Bowel Movements 1 - Labs CBC & Chem 7: 03/30/24 08:45 03/31/24 07:53 Labs: Abnormal Lab Results - Last 24 Hours (Table) 03/30/24 03/31/24 Range/Units 08:45 07:53 Potassium 3.4 L (3.5-5.1) mmol/L Carbon Dioxide 32 H (22-30) mmol/L BUN 26 H (9-20) mg/dL Glucose 137 H (74-99) mg/dL Calcium 7.8 L (8.4-10.2) mg/dL Iron 22 L (65-175) UG/DL % Saturation 6.90 L (15.00-50.00) Vitamin B12 1169.0 H (200.0-944.0) pg/mL Microbiology - Last 24 Hours (Table) 03/30/24 14:00 Gram Stain - Preliminary Leg - Left Wound Culture - Preliminary Gram Neg Bacilli
--- NOTE | 2024-03-31 12:30 | P.PN ---
Subjective Progress Note Date: 03/30/24 H&P Date: 03/29/24 Chief Complaint: Syncope This is a 84-year-old male well-known to the practice. Apparently yesterday no one was home and he was out working in his shed. He had either fallen or lost consciousness, he does not recall, and then proceeded to crawl approximately 75 feet. He was down for several hours. He has multiple abrasions and contusions throughout his body. He has congestive heart failure and A-fib and is on apixaban and furosemide. His overall health status has been poor. He has debility and uses a walker or canes to ambulate. His is at bedside. Currently denies any chest pain pressure shortness of breath nausea or vomiting. He is due to have his pacemaker changed tomorrow. Vital signs are essentially normal exception of respiratory rate is elevated. He does have oxygen at home now and his pulse ox 90% on 4 L currently. Laboratory studies show a slight leukocytosis of 15.6 with hemoglobin 11.8. There is left shift. INR is 1.4, BUN and creatinine are slightly elevated showing GFR 41, troponin is abnormal at 0.089 imaging was reviewed but is essentially negative. EKG shows paced rhythm 03/30/2024 sitting up in chair, reports shortness of breath, maintaining O2 sats in the 90s on 4 L nasal cannula. Diuresing well on Lasix IV push with 24-hour JAME reflecting a negative fluid balance. Creatinine improving, decreased to 1.25 denies chest pain, palpitations. Objective - Vital Signs Vital signs: Vital Signs Temp 97.6 F 03/30/24 07:58 Pulse 75 03/30/24 07:58 Resp 24 03/30/24 07:58 BP 141/65 03/30/24 07:58 Pulse Ox 96 03/30/24 07:58 FiO2 Intake & Output 03/29/24 03/30/24 03/30/24 18:59 06:59 18:59 Intake Total 140 10 Output Total 300 2075 Balance -160 -2074 10 Weight 158.757 kg 90 kg Intake: IV 10 Invasive Line 1 10 Intake, IV Titration 20 Amount Sodium Chloride 0.9% 1, 20 000 ml @ 20 mls/hr IV . Q24H [facility] Rx#:[id number] Oral 120 0 Output: Urine 300 2075 Other: Voiding Method Urinal Urinal # Voids 1 - Exam GENERAL: Alert and oriented x 3, sitting up in chair, no acute distress HEAD: Atraumatic, normocephalic. EYES: Pupils equal round and reactive to light, extraocular movements intact, sclera anicteric, conjunctiva are normal. ENT: Moist mucous membranes. NECK: Supple, no JVD LUNGS: equal air entry,Breath sounds coarse no wheezes rales or rhonchi. HEART: Regular S1S2 Normal, positive systolic murmur. ABDOMEN: Soft, nontender, normoactive bowel sounds. No guarding, no rebound. No masses appreciated. EXTREMITIES: Bilateral lower extremity edema, abrasions, ulcerations, reddened cellulitis, dressings clean dry and intact NEUROLOGICAL: Cranial nerves II through XII grossly intact. Strength and sensation grossly intact PSYCH: Normal mood, normal affect. SKIN: Warm, Dry. - Labs CBC & Chem 7: 03/30/24 08:45 03/31/24 07:53 Labs: Abnormal Lab Results - Last 24 Hours (Table) 03/29/24 03/29/24 03/30/24 Range/Units 11:42 15:00 08:45 RBC 4.19 L (4.30-5.90) m/uL Hgb 10.7 L (13.0-17.5) gm/dL Hct 37.7 L (39.0-53.0) % MCHC 28.4 L (31.0-37.0) g/dL Neutrophils # 7.8 H (1.3-7.7) k/uL Lymphocytes # 0.7 L (1.0-4.8) k/uL Monocytes # 1.2 H (0-1.0) k/uL Chloride (98-107) mmol/L Carbon Dioxide (22-30) mmol/L BUN (9-20) mg/dL Calcium (8.4-10.2) mg/dL Total Bilirubin (0.2-1.3) mg/dL AST (17-59) U/L Troponin I 0.096 H* 0.084 H* (0.000-0.034) ng/mL Total Protein (6.3-8.2) g/dL Albumin (3.5-5.0) g/dL 03/30/24 Range/Units 08:45 RBC (4.30-5.90) m/uL Hgb (13.0-17.5) gm/dL Hct (39.0-53.0) % MCHC (31.0-37.0) g/dL Neutrophils # (1.3-7.7) k/uL Lymphocytes # (1.0-4.8) k/uL Monocytes # (0-1.0) k/uL Chloride 109 H (98-107) mmol/L Carbon Dioxide 32 H (22-30) mmol/L BUN 27 H (9-20) mg/dL Calcium 8.0 L (8.4-10.2) mg/dL Total Bilirubin 1.9 H (0.2-1.3) mg/dL AST 103 H (17-59) U/L Troponin I (0.000-0.034) ng/mL Total Protein 6.0 L (6.3-8.2) g/dL Albumin 3.0 L (3.5-5.0) g/dL Assessment and Plan Assessment: Syncope Acute on chronic diastolic CHF, exacerbation Acute hypoxic respiratory failure secondary to the above Cellulitis, bilateral lower extremities, abrasions Leukocytosis secondary to the above, resolved History of pacemaker, scheduled for generator change Chronic persistent atrial fibrillation, anticoagulated on Eliquis CAD History of aortic stenosis, TAVR Hyperlipidemia COPD Medical debility Abnormal troponin, flat troponins Stage IIIa chronic renal failure History of CVA Plan: Continue on current medication resume ,monitoring and symptomatic treatment. IV antibiotics of cefazolin initiated, wound cultures ordered. IV push diuretics as per cardiology. Close monitoring of electrolytes, renal function with repeat labs ordered for a.m. pacemaker interrogation pending. Echo pending scheduled for generator change, once stable. The impression and plan of care has been dictated as directed. : I performed a history and examination of this patient, discussed the same with the dictator. I agree with the dictator's note ,documented as a scribe. Any additional findings or plans will be noted.
[2024-03-31] MEDS: POTASSIUM CHLORIDE ER 20 MEQ TAB.ER PO SCH (13:02)
--- NOTE | 2024-03-31 13:22 | P.PN ---
Subjective Progress Note Date: 03/31/24 H&P Date: 03/29/24 Chief Complaint: Syncope This is a 84-year-old male well-known to the practice. Apparently yesterday no one was home and he was out working in his shed. He had either fallen or lost consciousness, he does not recall, and then proceeded to crawl approximately 75 feet. He was down for several hours. He has multiple abrasions and contusions throughout his body. He has congestive heart failure and A-fib and is on apixaban and furosemide. His overall health status has been poor. He has debility and uses a walker or canes to ambulate. His is at bedside. Currently denies any chest pain pressure shortness of breath nausea or vomiting. He is due to have his pacemaker changed tomorrow. Vital signs are essentially normal exception of respiratory rate is elevated. He does have oxygen at home now and his pulse ox 90% on 4 L currently. Laboratory studies show a slight leukocytosis of 15.6 with hemoglobin 11.8. There is left shift. INR is 1.4, BUN and creatinine are slightly elevated showing GFR 41, troponin is abnormal at 0.089 imaging was reviewed but is essentially negative. EKG shows paced rhythm 03/30/2024 sitting up in chair, reports shortness of breath, maintaining O2 sats in the 90s on 4 L nasal cannula. Diuresing well on Lasix IV push with 24-hour JAME reflecting a negative fluid balance. Creatinine improving, decreased to 1.25 denies chest pain, palpitations. 03/31/2024 maintained on cefazolin, afebrile, normal WBC. Continues diuresing well on Lasix IV push with 24-hour I&O reflecting a negative fluid balance. Currently lying flat, denies chest pain, palpitations or shortness of breath, maintaining O2 sats in the high 90s on 2 L nasal cannula. Potassium 3.4, supplements ordered, magnesium 2. Pacemaker interrogated, cardiology reports no arrhythmias detected. Echo reporting technically difficult study, EF 55% normal LV cavity size, mild concentric LVH, other chambers not well-visualized, bioprosthetic aortic valve with mean gradient of 18mmHg, no regurgitation or paravalvular leak appreciated. Objective - Vital Signs Vital signs: Vital Signs Temp 97.8 F 03/31/24 11:51 Pulse 72 03/31/24 12:07 Resp 16 03/31/24 11:51 BP 126/56 03/31/24 11:51 Pulse Ox 98 03/31/24 11:51 FiO2 Intake & Output 03/30/24 03/31/24 03/31/24 18:59 06:59 18:59 Intake Total 1150 812 Output Total 100 1300 Balance 1050 -1300 812 Weight 88 kg Intake: IV 10 Invasive Line 1 10 Oral 1140 812 Output: Urine 100 1300 Other: Voiding Method Urinal Urinal Urinal # Voids 2 1 # Bowel Movements 1 - Exam GENERAL: Alert and oriented x 3, lying in bed, no acute distress HEENT: Atraumatic, normocephalic.Pupils equal round and reactive to light,conjunctiva normal. MMM. NECK: Supple, no JVD LUNGS: Unlabored, equal air entry,Breath sounds CTA, bilateral bases diminished HEART: Regular S1S2 Normal, positive systolic murmur. ABDOMEN: Soft, nontender, normoactive bowel sounds. No guarding, no rebound. No masses appreciated. EXTREMITIES: Bilateral lower extremity edema, abrasions, no clubbing, no cyanosis ,scabs, reddened cellulitis, dressings clean dry and intact NEUROLOGICAL: Cranial nerves II through XII grossly intact. Strength and sensation grossly intact SKIN: Warm, Dry. Microbiology 03/30/24 14:00 Leg - Left Gram Stain - Preliminary 03/30/24 14:00 Leg - Left Wound Culture - Preliminary Gram Neg Bacilli - Labs CBC & Chem 7: 03/30/24 08:45 03/31/24 07:53 Labs: Abnormal Lab Results - Last 24 Hours (Table) 03/30/24 03/31/24 Range/Units 08:45 07:53 Potassium 3.4 L (3.5-5.1) mmol/L Carbon Dioxide 32 H (22-30) mmol/L BUN 26 H (9-20) mg/dL Glucose 137 H (74-99) mg/dL Calcium 7.8 L (8.4-10.2) mg/dL Iron 22 L (65-175) UG/DL % Saturation 6.90 L (15.00-50.00) Vitamin B12 1169.0 H (200.0-944.0) pg/mL Microbiology - Last 24 Hours (Table) 03/30/24 14:00 Gram Stain - Preliminary Leg - Left Wound Culture - Preliminary Gram Neg Bacilli Assessment and Plan Assessment: Syncope Acute on chronic diastolic CHF, exacerbation Acute on chronic hypoxic respiratory failure secondary to the above Cellulitis, bilateral lower extremities, abrasions, wound cultures growing gram-negative bacilli Leukocytosis secondary to the above, resolved History of pacemaker, scheduled for generator change Chronic persistent atrial fibrillation, anticoagulated on Eliquis CAD History of aortic stenosis, TAVR Hyperlipidemia COPD Medical debility Abnormal troponin, flat troponins Stage IIIa chronic renal failure History of CVA Hypokalemia Plan: Continue on current medication resume ,monitoring and symptomatic treatment. Wound cultures finalizing, continue on IV antibiotics. Infectious d isease consulted. Diuretics as per cardiology. Potassium supplementation ordered. close monitoring of electrolytes, renal function with repeat labs ordered for a.m. The impression and plan of care has been dictated as directed. : I performed a history and examination of this patient, discussed the same with the dictator. I agree with the dictator's note ,documented as a scribe. Any additional findings or plans will be noted.
--- NOTE | 2024-03-31 22:41 | P.CONS ---
History of Present Illness - Reason for Consult Consult date: 03/31/24 Cellulitis, upcoming generator change Requesting physician: Christel Eckert - Chief Complaint Lower extremity swelling and redness x days - History of Present Illness Patient is a 84-year-old male with past medical history significant for atrial fibrillation hypertension hyperlipidemia CVA TIA COPD heart failure did have an AICD and apparently scheduled for change of the generator presenting to the hospital 3 days ago after apparently patient was found at the bottom of 4 of stairs. The patient fell and was trying to crawl to go inside the house and has developed multiple laceration to bilateral lower extremity and noticed to have increasing redness with concern for cellulitis patient will be started on cefazolin infectious was consulted for further management patient currently denies having any fever or any chills he did have a low-grade fever of 99.2 on presentation to the hospital that has subsequently resolved patient was not tachycardic hypotensive or hypoxic patient did have white count of 15.6 on admission that was down to 10.2 as of yesterday no CBC was done today BUN/creatinine was elevated but down to 1.04 as well as creatinine did have elevated liver enzymes urine testing was negative serum alcohol was less than 10 blood culture pending currently pending culture from the left leg currently growing gram-negative bacilli patient is currently on cefazolin infectious disease was consulted for further management of antibiotic therapy patient has been complaining of pain to the lower extremity wound daily to be mostly dull aching mild to moderate intensity without any radiation Review of Systems Positive point and negatives has been mentioned in the HPI, complete review of systems was performed and all other systems are negative Past Medical History Past Medical History: Atrial Fibrillation, Cancer, Heart Failure, COPD, CVA/TIA, Hyperlipidemia, Hypertension, Osteoarthritis (OA), Pneumonia, Sleep Apnea/CPAP/BIPAP Additional Past Medical History / Comment(s): recent echo, SOB w/exertion, uses CPAP, hx. skin cancer, hx. stroke 2006-no residual effects, pneumonia in 2019, see Dr Moseley H & P, cellulitis History of Any Multi-Drug Resistant Organisms: MRSA Year Discovered:: 05/13/19 MDRO Source:: BACK Past Surgical History: AICD, Cardiac Valve Replacement, Heart Catheterization, Hernia Repair, Orthopedic Surgery Additional Past Surgical History / Comment(s): 2nd finger right hand reattached, TAVR 2019 Past Anesthesia/Blood Transfusion Reactions: No Reported Reaction Type of Cardiac Device: AICD Device Placement Date:: 2014 Past Psychological History: No Psychological Hx Reported Smoking Status: Never smoker Past Alcohol Use History: None Reported Past Drug Use History: None Reported - Past Family History Brother(s) Family Medical History: Cancer Medications and Allergies Home Medications Medication Instructions Recorded Confirmed Type Metoprolol Succinate (ER) [Toprol 50 mg PO DAILY 08/12/19 03/28/24 History XL] Furosemide [Lasix] 40 mg PO BID 03/30/22 03/28/24 History Fluticasone/Umeclidin/Vilanter 1 puff INHALATION RT-DAILY 03/26/24 03/28/24 History [Trelegy Ellipta 100-62.5-25] Rosuvastatin [Crestor] 20 mg PO HS 03/26/24 03/28/24 History Apixaban [Eliquis] 5 mg PO BID 03/28/24 03/28/24 History Ferrous Sulfate [Iron (65 MG 325 mg PO DAILY 03/28/24 03/28/24 History Elemental)] Folic Acid 1 mg PO DAILY tab 04/03/24 Rx Gabapentin [Neurontin] 300 mg PO HS #3 cap 04/03/24 Rx Ipratropium-Albuterol Nebulize 3 ml INHALATION Q4H PRN each 04/03/24 Rx [Duoneb 0.5 mg-3 mg/3 ml Soln] Ipratropium-Albuterol Nebulize 3 ml INHALATION RT-QID each 04/03/24 Rx [Duoneb 0.5 mg-3 mg/3 ml Soln] Ketorolac 0.5% Ophth Soln [Acular 1 drops BOTH EYES QID 7 Days #1 ml 04/03/24 Rx 0.5%] Nystatin 100,000 Unit/gm Powd 1 applic TOPICAL TID each 04/03/24 Rx [Mycostatin Powder] cefUROXime axetiL [Ceftin] 500 mg PO BID 10 Days #20 tab 04/03/24 Rx polyethylene glycoL 3350 [Miralax] 17 gm PO DAILY #30 packet 04/03/24 Rx predniSONE 10 mg PO DIRECTED #30 tab 04/03/24 Rx rOPINIRole HCL [Requip] 0.25 mg PO HS #3 tab 04/03/24 Rx Allergies Allergy/AdvReac Type Severity Reaction Status Date / Time aspirin Allergy Severe throat Verified 03/28/24 20:03 swelling Physical Exam Vitals: Vital Signs Temp Pulse Pulse Resp BP Pulse Ox 03/31/24 11:54 72 03/31/24 11:51 97.8 F 71 16 126/56 98 03/31/24 09:20 72 03/31/24 09:07 68 98 03/31/24 08:00 97.8 F 69 16 132/48 98 03/31/24 04:00 69 20 138/82 98 03/31/24 03:58 76 03/31/24 03:47 72 03/31/24 00:00 70 20 132/53 95 03/30/24 21:30 76 03/30/24 21:19 72 03/30/24 20:00 98.4 F 67 20 144/68 97 03/30/24 16:58 98.1 F 70 22 156/55 98 03/30/24 16:37 68 03/30/24 16:29 100 03/30/24 16:24 70 Intake and Output 03/30/24 03/31/24 03/31/24 22:59 06:59 14:59 Intake Total 780 590 Output Total 275 1025 Balance 505 -1025 590 Intake: Oral 780 590 Output: Urine 275 1025 Other: Voiding Method Urinal Urinal Urinal # Voids 1 # Bowel Movements 1 Weight 88 kg GENERAL DESCRIPTION: Elderly male lying in bed, no distress. No tachypnea or accessory muscle of respiration use. HEENT: Shows Pallor , no scleral icterus. Oral mucous membrane is dry. No pharyngeal erythema or thrush NECK: Trachea central, no thyromegaly. LUNGS: Unlabored breathing. Clear to auscultation anteriorly. No wheeze or c rackle. HEART: S1, S2, regular rate and rhythm. No loud murmur ABDOMEN: Soft, no tenderness , guarding or rigidity, no organomegaly EXTREMITIES: Bilateral lower extremity with superficial ulceration swelling and redness SKIN: No rash, no masses palpable. NEUROLOGICAL: The patient is awake, alert, oriented x3, mood and affect normal. Results CBC & Chem 7: 04/01/24 10:20 04/02/24 06:40 Labs: Abnormal Lab Results - Last 24 Hours (Table) 03/30/24 03/31/24 Range/Units 08:45 07:53 Potassium 3.4 L (3.5-5.1) mmol/L Carbon Dioxide 32 H (22-30) mmol/L BUN 26 H (9-20) mg/dL Glucose 137 H (74-99) mg/dL Calcium 7.8 L (8.4-10.2) mg/dL Iron 22 L (65-175) UG/DL % Saturation 6.90 L (15.00-50.00) Vitamin B12 1169.0 H (200.0-944.0) pg/mL Microbiology - Last 24 Hours (Table) 03/30/24 14:00 Gram Stain - Preliminary Leg - Left Wound Culture - Preliminary Gram Neg Bacilli Assessment and Plan (1) Bilateral leg ulcer Current Visit: Yes Status: Acute Code(s): L97.919 - NON-PRS CHRONIC ULC UNSP PRT OF R LOW LEG W UNSP SEVERITY; L97.929 - NON-PRS CHRONIC ULC UNSP PRT OF L LOW LEG W UNSP SEVERITY SNOMED Code(s): 88522166 (2) Bilateral lower leg cellulitis Current Visit: Yes Status: Acute Code(s): L03.116 - CELLULITIS OF LEFT LOWER LIMB; L03.115 - CELLULITIS OF RIGHT LOWER LIMB SNOMED Code(s): 365380256 Plan: 1patient with a bilateral lower extremity laceration and did have evidence of cellulitis likely from gram-positive skin rachelle gram-negative infection less likely but not excluded infected local cultures currently growing gram-negative bacilli 2-discontinue cefazolin 3-start the patient cefepime 2 g every 8 hours 4-local wound care to the wound with slough tissue to apply Astridney Metzger of the wound which has been we will apply Aquacel silver dressing and will benefit from Sergio wrap from just above the toe to below the knee We will follow on clinical condition and cultures to further adjust medication if needed Thank you for this consultation we will follow the patient along with you Dictation was produced using [employer] dictation software. please excuse any grammatical, word or spelling errors. Time with Patient: Greater than 30
[2024-03-31] MEDS: CEFEPIME 2 GM in SODIUM CHLORIDE 0.9% 100 ML IVPB SCH (23:11)
--- NOTE | 2024-04-01 07:22 | P.PN ---
Subjective Progress Note Date: 03/31/24 03/31/2024: Patient was seen for follow-up. Denies any further syncopal spell. Patient states his restless legs symptoms have improved since he started Requip last night. 03/30/2024: Patient was seen for follow-up. Patient initially seen by Dr. Alberto Martinez. Please refer to his note for details. Patient is presented with syncope. Patient probably has some degree of hypoxia, since he was not using his home nasal cannula for oxygen. He is also wheezing. Patient is laying comfortably in the bed. He states he takes couple pain pills as both legs hurt. Both legs have tendency to jump up and down. Some of this Hospital Visit Consisted of: Blood cell is 15.6 and predominant neutrophilic. All is 1.52 Serum glucose is 83 Calcium is 8.7 TSH is 1.6.0 Troponin is 0.089 CK level is 197. CT Head is reported as age-related atrophy and chronic small vessel ischemic change without acute intracranial seen at this time. I personally reviewed the CT and agree with read. CT cervical spine reported as no evidence for acute fracture or subluxation of the cervical spine. CT angiography of the head and neck is reported as diminished branch vessel left MCA territory. Otherwise, no significant diameter reduction to account for patient's symptoms. Cardiomegaly with pulmonary venous congestion and small effusion. The ED team did not feel the patient had any focal deficit on the right and did comment on the CT angiography on presentation. Objective - Vital Signs Vital signs: Vital Signs Temp 98.1 F 03/31/24 16:00 Pulse 68 03/31/24 16:00 Resp 16 03/31/24 16:00 BP 134/68 03/31/24 16:00 Pulse Ox 97 03/31/24 16:00 FiO2 Intake & Output 03/30/24 03/31/24 03/31/24 18:59 06:59 18:59 Intake Total 1150 812 Output Total 100 1300 Balance 1050 -1300 812 Weight 88 kg Intake: IV 10 Invasive Line 1 10 Oral 1140 812 Output: Urine 100 1300 Other: Voiding Method Urinal Urinal Urinal # Voids 2 1 # Bowel Movements 1 - Exam Patient's mental status, speech and language functions are normal. Muscle strength is normal. Patient has edema of the lower extremities, some bruises and redness of the sams anteriorly. Mental status is normal. Patient is slightly short of breath. On checking pronator drift, patient arms gets tired and he drops it down. Not able to check for myoclonic jerks. - Labs CBC & Chem 7: 03/30/24 08:45 03/31/24 07:53 Labs: Abnormal Lab Results - Last 24 Hours (Table) 03/30/24 03/31/24 Range/Units 08:45 07:53 Potassium 3.4 L (3.5-5.1) mmol/L Carbon Dioxide 32 H (22-30) mmol/L BUN 26 H (9-20) mg/dL Glucose 137 H (74-99) mg/dL Calcium 7.8 L (8.4-10.2) mg/dL Iron 22 L (65-175) UG/DL % Saturation 6.90 L (15.00-50.00) Vitamin B12 1169.0 H (200.0-944.0) pg/mL Microbiology - Last 24 Hours (Table) 03/30/24 14:00 Gram Stain - Preliminary Leg - Left Wound Culture - Preliminary Gram Neg Bacilli Assessment and Plan Assessment: Syncopal episode likely due to hypoxia since not compliant using his nasal canuli. Imaging showing cardiomegaly with pulmonary venous congestion Severe dysnpea and is wheezing without auscultation Diminished branch vessel left MCA on CTA. There is no focal deficit on right. Dr. Martinez felt imaging showing artifact and felt Left M1/M2 is patent. Underlying history of congestive heart failure History of atrial fibrillation on Eliquis status post AICD. Patient will undergo AICD battery replacement on , 04/02/2024. Possible restless legs. Perhaps related to iron deficiency. History of stroke in 2006 without any residual deficit Acute kidney injury History of mild to moderate coronary artery disease Status post TAVR Elevated cardiac enzymes. Iron deficiency Plan: EEG was performed, which was abnormal due to background slowing of mild to moderate degree, suggestive of encephalopathy. No focal, lateralized or epileptiform activity was seen. Cannot obtain MRI of the brain since the patient has AICD Patient is complaining of restless legs. B12 1169, folate 4.9. Patient will be started on folate replacement. Serum iron is low 22, TIBC 319 (228-460), percent saturation 6.90 (15-50) and transferrin 228. Patient has iron deficiency. Suggest iron replacement to help with restless legs. Patient states his restless legs have improved since started on Requip 0.25 mg at bedtime for possible restless legs. Patient informed about possibility of drowsiness, and worsening of edema. Cardiology is on board. 2-D echo revealed technically difficult study. Left ventricular EF is 55%. No obvious regional wall motion abnormality. Mild concentric LVH. Other chambers not well visualized. Bioprosthetic aortic valve with mean gradient of 18 mm edgy. No regurgitation. No paravalvular leak. Patient is on Eliquis 5 mg twice daily. Patient is on Lipitor 40 mg nightly Patient was counseled on using his nasal cannula on a regular basis. Defer the rest of the medical management to primary and other specialist Neurologically clear.
[2024-04-01] MEDS: FOLIC ACID 1 MG TAB PO SCH (08:07)
[2024-04-01 10:35] LABS: Basophils % (A) 0 %; Eosinophils # (A) 0.3 k/uL (0-0.7); Eosinophils % (A) 3 %; HCT 35.7 % (39.0-53.0); HGB 10.2 gm/dL (13.0-17.5); Hypochromasia Marked; Lymphocytes # (A) 0.7 k/uL (1.0-4.8); Lymphocytes % (A) 8 %; MCH 25.9 pg (25.0-35.0); MCHC 28.7 g/dL (31.0-37.0); MCV 90.2 fL (80.0-100.0); Monocytes # (A) 1.1 k/uL (0-1.0); Monocytes % (A) 13 %; Neutrophils # (A) 6.6 k/uL (1.3-7.7); Neutrophils % (A) 74 %; Platelet Count 172 k/uL (150-450); RBC 3.96 m/uL (4.30-5.90); RDW 14.8 % (11.5-15.5); WBC 8.9 k/uL (3.8-10.6)
[2024-04-01 10:49] LABS: African American GFR (CKD) 74 (>60 ml/min/1.73 sqM); Anion Gap 6 mmol/L; Blood Urea Nitrogen 22 mg/dL (9-20); Calcium 7.9 mg/dL (8.4-10.2); Carbon Dioxide 30 mmol/L (22-30); Chloride 107 mmol/L (98-107); Glucose 121 mg/dL (74-99); Non-African American GFR(CKD) 64 (>60 ml/min/1.73 sqM); Potassium 3.5 mmol/L (3.5-5.1); Sodium 143 mmol/L (137-145)
[2024-04-01] MEDS ORDERED: ARTIFICIAL TEARS-HYPROMELLOSE DROPS 15 ML BTL BOTH EYES PRN (11:47)
[2024-04-01] MEDS: POTASSIUM CHLORIDE ER 20 MEQ TAB.ER PO STA (11:50)
[2024-04-01] MEDS: CEFEPIME 2 GM in SODIUM CHLORIDE 0.9% 100 ML IVPB SCH (11:50)
--- NOTE | 2024-04-01 12:43 | P.PN ---
Subjective HISTORY OF PRESENT ILLNESS: The patient is an 84-year-old male with a history of atrial fibrillation, permanent pacemaker implantation, mild to moderate CAD and status post TAVR who is scheduled to undergo generator change by Dr. Moseley and presented after a fall. Apparently he was working in his shed, fell it is unclear if he had a syncopal episode. He crawled back home. He denies any symptoms of chest discomfort, dizziness or palpitations. He does not feel that his breathing is any different yet he is limited in his physical activity. In the past his systolic function was preserved. He has chronic peripheral edema and recent cellulitis. He has no recent PND nor orthopnea. It is unclear from him or his if he had full syncopal episode. In the emergency room he was noted to have mild troponin elevation. There is no evidence of pacemaker malfunction. His knee x-ray showed no evidence of fracture. Medications: Eliquis 5 mg twice a day, furosemide 40 mg twice a day, metoprolol succinate 50 mg daily, rosuvastatin 20 mg daily, iron, Trelegy 03/30/2024 Patient examined this morning at the bedside. Patient currently denies chest pain or pressure. He reports mild shortness of breath. Vital signs are stable. March 31 2024 Patient examined this morning at the bedside. Patient currently denies chest pain or pressure. He reports improvement in his shortness of breath. He continues to have lower extremity edema. Pacemaker was interrogated with no significant events noted. Echocardiogram completed revealing ejection fraction 55%, bioprosthetic aortic valve with a mean gradient of 18 mmHg, no aortic regurgitation, mild tricuspid regurgitation April 01, 2024 Patient examined this morning at bedside. Patient currently denies chest pain or pressure. He continues to report shortness of breath. He remains on antibiotics for his lower extremity cellulitis. He continues to have lower extremity edema although improving. He remains on IV Lasix 40 mg every 12 hours. Kidney function stable. Creatinine today 1.05. PHYSICAL EXAM: VITAL SIGNS: Reviewed. GENERAL: Well-developed in no acute distress. NECK: Supple. No JVD or thyromegaly LUNGS: Respirations even and unlabored. Lungs essentially clear to auscultation bilaterally. HEART: Regular rate and rhythm. S1 and S2 heard. Systolic murmur noted. EXTREMITIES: Normal range of motion. No clubbing or cyanosis. Peripheral pulses intact. 2+ bilateral lower extremity edema with ulcerations noted. ASSESSMENT: Syncope Acute on chronic heart failure with preserved EF Bilateral lower extremity lacerations with cellulitis, wound culture positive for gram-negative bacilli Persistent atrial fibrillation, on Eliquis Acute kidney injury, improved Elevated troponins, likely acute myocardial injury without ischemia, secondary to LUIS A History of aortic stenosis with TAVR Status post permanent pacemaker implantation with His bundle pacing, scheduled for generator change Mild to moderate CAD by cardiac catheterization 2018 Hyperlipidemia PLAN: . Continue current cardiac medications Continue IV Lasix 40 mg every 12 hours Daily weights, accurate intake and output, and monitoring of kidney function Continue telemetry monitoring Device generator change initially scheduled for tomorrow. This will be canceled due to patient's bilateral lower extremity cellulitis. Patient's procedure will be rescheduled in approximately 10 to 14 days once he is medically stable and he has completed his course of outpatient antibiotics. Further recommendations pending patient course Nurse practitioner note has been reviewed by physician. Signing provider agrees with the documented findings, assessment, and plan of care documented by CONTRACT CLERK as a scribe. Objective - Vital Signs Vital signs: Vital Signs Temp 97.6 F 04/01/24 11:50 Pulse 76 04/01/24 12:00 Resp 16 04/01/24 11:50 BP 136/69 04/01/24 11:50 Pulse Ox 100 04/01/24 11:50 FiO2 Intake & Output 03/31/24 04/01/24 04/01/24 18:59 06:59 18:59 Intake Total 1138 884 Output Total 500 1550 875 Balance 638 -1550 9 Weight 135.1 kg Intake: Oral 1138 884 Output: Urine 500 1550 875 Other: Voiding Method Urinal Urinal Urinal # Voids 1 - Labs CBC & Chem 7: 04/01/24 10:20 04/01/24 10:20 Labs: Abnormal Lab Results - Last 24 Hours (Table) 04/01/24 04/01/24 Range/Units 10:20 10:20 RBC 3.96 L (4.30-5.90) m/uL Hgb 10.2 L (13.0-17.5) gm/dL Hct 35.7 L (39.0-53.0) % MCHC 28.7 L (31.0-37.0) g/dL Lymphocytes # 0.7 L (1.0-4.8) k/uL Monocytes # 1.1 H (0-1.0) k/uL BUN 22 H (9-20) mg/dL Glucose 121 H (74-99) mg/dL Calcium 7.9 L (8.4-10.2) mg/dL Microbiology - Last 24 Hours (Table) 03/30/24 12:57 Blood Culture - Preliminary Blood
--- NOTE | 2024-04-01 13:45 | P.PN ---
Subjective Progress Note Date: 04/01/24 H&P Date: 03/29/24 Chief Complaint: Syncope This is a 84-year-old male well-known to the practice. Apparently yesterday no one was home and he was out working in his shed. He had either fallen or lost consciousness, he does not recall, and then proceeded to crawl approximately 75 feet. He was down for several hours. He has multiple abrasions and contusions throughout his body. He has congestive heart failure and A-fib and is on apixaban and furosemide. His overall health status has been poor. He has debility and uses a walker or canes to ambulate. His is at bedside. Currently denies any chest pain pressure shortness of breath nausea or vomiting. He is due to have his pacemaker changed tomorrow. Vital signs are essentially normal exception of respiratory rate is elevated. He does have oxygen at home now and his pulse ox 90% on 4 L currently. Laboratory studies show a slight leukocytosis of 15.6 with hemoglobin 11.8. There is left shift. INR is 1.4, BUN and creatinine are slightly elevated showing GFR 41, troponin is abnormal at 0.089 imaging was reviewed but is essentially negative. EKG shows paced rhythm 03/30/2024 sitting up in chair, reports shortness of breath, maintaining O2 sats in the 90s on 4 L nasal cannula. Diuresing well on Lasix IV push with 24-hour JAME reflecting a negative fluid balance. Creatinine improving, decreased to 1.25 denies chest pain, palpitations. 03/31/2024 maintained on cefazolin, afebrile, normal WBC. Continues diuresing well on Lasix IV push with 24-hour I&O reflecting a negative fluid balance. Currently lying flat, denies chest pain, palpitations or shortness of breath, maintaining O2 sats in the high 90s on 2 L nasal cannula. Potassium 3.4, supplements ordered, magnesium 2. Pacemaker interrogated, cardiology reports no arrhythmias detected. Echo reporting technically difficult study, EF 55% normal LV cavity size, mild concentric LVH, other chambers not well-visualized, bioprosthetic aortic valve with mean gradient of 18mmHg, no regurgitation or paravalvular leak appreciated. 04/01/2024 wound cultures finalizing, currently reporting gram-negative bacilli. Preliminary blood culture reporting no growth after 24 hours. antibiotics adjusted to cefepime as per infectious disease, along with local wound care. Afebrile, normal WBC. Hemoglobin 10.2, platelets 172. decreased shortness of breath. Diuresing well on Lasix IV push with 24-hour JAME reflecting a negative fluid balance. potassium 3.5, supplements ordered. Bicarb 30 BUN 22, creatinine 1.05. Maintaining O2 sats in the high 90s on 2 L nasal cannula. Blood sugars controlled. Denies chest pain, palpitations. Reports seasonal allergies, eyes reddened with clear drainage, reports he normally uses allergy eyedrops this time of the year. Objective - Vital Signs Vital signs: Vital Signs Temp 97.7 F 04/01/24 08:05 Pulse 74 04/01/24 08:05 Resp 16 04/01/24 08:05 BP 126/57 04/01/24 08:05 Pulse Ox 96 04/01/24 08:05 FiO2 Intake & Output 03/31/24 04/01/24 04/01/24 18:59 06:59 18:59 Intake Total 1138 884 Output Total 500 1550 875 Balance 638 -1550 9 Weight 135.1 kg Intake: Oral 1138 884 Output: Urine 500 1550 875 Other: Voiding Method Urinal Urinal Urinal # Voids 1 - Exam GENERAL: Pleasant, alert and oriented x 3, sitting up in chair, no acute distress HEENT: Atraumatic, normocephalic.Pupils equal round and reactive to light, eyes reddened. MMM. NECK: Supple, no JVD LUNGS: Unlabored, equal air entry,Breath sounds CTA, bilateral bases diminished HEART: Regular S1,S2 Normal, positive systolic murmur. ABDOMEN: Soft, nontender, normoactive bowel sounds. No guarding, no rebound. No masses appreciated. EXTREMITIES: Bilateral lower extremity Sergio wrap dressings clean dry and intact. NEUROLOGICAL: Cranial nerves II through XII grossly intact. Strength and sens ation grossly intact SKIN: Warm, Dry. - Labs CBC & Chem 7: 04/01/24 10:20 04/01/24 10:20 Labs: Abnormal Lab Results - Last 24 Hours (Table) 04/01/24 04/01/24 Range/Units 10:20 10:20 RBC 3.96 L (4.30-5.90) m/uL Hgb 10.2 L (13.0-17.5) gm/dL Hct 35.7 L (39.0-53.0) % MCHC 28.7 L (31.0-37.0) g/dL Lymphocytes # 0.7 L (1.0-4.8) k/uL Monocytes # 1.1 H (0-1.0) k/uL BUN 22 H (9-20) mg/dL Glucose 121 H (74-99) mg/dL Calcium 7.9 L (8.4-10.2) mg/dL Microbiology - Last 24 Hours (Table) 03/30/24 12:57 Blood Culture - Preliminary Blood 03/30/24 14:00 Gram Stain - Preliminary Leg - Left Wound Culture - Preliminary Gram Neg Bacilli Assessment and Plan Assessment: Syncope Acute on chronic diastolic CHF, exacerbation Acute on chronic hypoxic respiratory failure secondary to the above Cellulitis, bilateral lower extremities, abrasions, lacerations. Preliminary wound cultures reporting gram-negative bacilli. Wound cultures growing gram-negative bacilli Leukocytosis secondary to the above, resolved History of pacemaker, scheduled for generator change Chronic persistent atrial fibrillation, anticoagulated on Eliquis CAD History of aortic stenosis, TAVR Hyperlipidemia COPD Medical debility Abnormal troponin, flat troponins Stage IIIa chronic renal failure History of CVA Hypokalemia Plan: Continue on current medication resume ,monitoring and symptomatic treatment. Wound cultures finalizing, IV antibiotics/local wound care as per Infectious disease. Diuretics as per cardiology. Potassium supplementation ordered. Close monitoring of electrolytes, renal function with repeat labs ordered for a.m. Evaluated by PT recommending subacute rehab. at [place]; both patient and significant other in agreement to subacute rehab, requesting [facility]. Generator change canceled secondary to cellulitis infection, being rescheduled in approximately 10 days once antibiotic treatment has been completed and medically stable. The impression and plan of care has been dictated as directed. : I performed a history and examination of this patient, discussed the same with the dictator. I agree with the dictator's note ,documented as a scribe. Any additional findings or plans will be noted.
[2024-04-01] MEDS: KETOROLAC 0.5% OPHTH DROPS 5 ML BTL BOTH EYES SCH (15:27)
--- NOTE | 2024-04-01 18:01 | P.PN ---
Subjective Progress Note Date: 04/01/24 Principal diagnosis: Reason for follow-up is bilateral lower extremity wound and cellulitis Patient is a 84-year-old male with past medical history significant for atrial fibrillation hypertension hyperlipidemia CVA TIA COPD heart failure did have an AICD and apparently scheduled for change of the generator presenting to the hospital after the patient had a fall and did have multiple laceration to the lower extremity and concerning for cellulitis. On today's evaluation that is 04/01/2024, Patient is afebrile this morning and denies any chills, patient mention breathing comfortably and is currently on 2 L nasal cannula oxygen, patient denies any chest pain occasional cough patient denies any abdominal pain no diarrhea no nausea no vomiting, denies any worseni ng pedal lower extremity. Patient white count is 8.8, creatinine 1.05 cultures growing gram-negative bacilli Objective - Vital Signs Vital signs: Vital Signs Temp 97.6 F 04/01/24 11:50 Pulse 76 04/01/24 12:00 Resp 16 04/01/24 11:50 BP 136/69 04/01/24 11:50 Pulse Ox 100 04/01/24 11:50 FiO2 Intake & Output 03/31/24 04/01/24 04/01/24 18:59 06:59 18:59 Intake Total 1138 884 Output Total 500 1550 875 Balance 638 -1550 9 Weight 135.1 kg Intake: Oral 1138 884 Output: Urine 500 1550 875 Other: Voiding Method Urinal Urinal Urinal # Voids 1 - Exam GENERAL DESCRIPTION: An elderly male lying in bed in no distress RESPIRATORY SYSTEM: Unlabored breathing , decreased breath sounds at bases HEART: S1 S2 regular rate and rhythm , ABDOMEN: Soft , no tenderness EXTREMITIES: Bilateral legs wound currently dressed redness decreased - Labs CBC & Chem 7: 04/01/24 10:20 04/01/24 10:20 Labs: Abnormal Lab Results - Last 24 Hours (Table) 04/01/24 04/01/24 Range/Units 10:20 10:20 RBC 3.96 L (4.30-5.90) m/uL Hgb 10.2 L (13.0-17.5) gm/dL Hct 35.7 L (39.0-53.0) % MCHC 28.7 L (31.0-37.0) g/dL Lymphocytes # 0.7 L (1.0-4.8) k/uL Monocytes # 1.1 H (0-1.0) k/uL BUN 22 H (9-20) mg/dL Glucose 121 H (74-99) mg/dL Calcium 7.9 L (8.4-10.2) mg/dL Microbiology - Last 24 Hours (Table) 03/30/24 14:00 Anaerobic Culture - Preliminary Leg - Left 03/30/24 12:57 Blood Culture - Preliminary Blood Assessment and Plan (1) Bilateral leg ulcer Current Visit: Yes Status: Acute Code(s): L97.919 - NON-PRS CHRONIC ULC UNSP PRT OF R LOW LEG W UNSP SEVERITY; L97.929 - NON-PRS CHRONIC ULC UNSP PRT OF L LOW LEG W UNSP SEVERITY SNOMED Code(s): 23948815 (2) Bilateral lower leg cellulitis Current Visit: Yes Status: Acute Code(s): L03.116 - CELLULITIS OF LEFT LOWER LIMB; L03.115 - CELLULITIS OF RIGHT LOWER LIMB SNOMED Code(s): 545201642 Plan: 1patient with a bilateral lower extremity laceration and did have evidence of cellulitis likely from gram-positive skin rachelle gram-negative infection less likely but not excluded infected local cultures currently growing gram-negative bacilli with ID sensitivities pending 2-patient to continue with cefepime 2 g every 8 hours while waiting for the culture to finalize along with local wound care as ordered Dictation was produced using [employer] dictation software. please excuse any grammatical, word or spelling errors. Time with Patient: Less than 30
[2024-04-02 07:24] LABS: African American GFR (CKD) 83 (>60 ml/min/1.73 sqM); Anion Gap 4 mmol/L; Blood Urea Nitrogen 20 mg/dL (9-20); Calcium 7.9 mg/dL (8.4-10.2); Carbon Dioxide 29 mmol/L (22-30); Chloride 110 mmol/L (98-107); Glucose 124 mg/dL (74-99); Non-African American GFR(CKD) 72 (>60 ml/min/1.73 sqM); Potassium 3.8 mmol/L (3.5-5.1); Sodium 143 mmol/L (137-145)
--- NOTE | 2024-04-02 08:17 | P.PN ---
Subjective Progress Note Date: 04/01/24 04/01/2024: Patient was seen for a follow-up. Patient is sitting comfortably in the recliner. He states his restless legs symptoms have much improved. Denies any side effect of medication. 03/31/2024: Patient was seen for follow-up. Denies any further syncopal spell. Patient states his restless legs symptoms have improved since he started Requip last night. 03/30/2024: Patient was seen for follow-up. Patient initially seen by Dr. Alberto Martinez. Please refer to his note for details. Patient is presented with syncope. Patient probably has some degree of hypoxia, since he was not using his home nasal cannula for oxygen. He is also wheezing. Patient is laying comfortably in the bed. He states he takes couple pain pills as both legs hurt. Both legs have tendency to jump up and down. Some of this Hospital Visit Consisted of: Blood cell is 15.6 and predominant neutrophilic. All is 1.52 Serum glucose is 83 Calcium is 8.7 TSH is 1.6.0 Troponin is 0.089 CK level is 197. CT Head is reported as age-related atrophy and chronic small vessel ischemic change without acute intracranial seen at this time. I personally reviewed the CT and agree with read. CT cervical spine reported as no evidence for acute fracture or subluxation of the cervical spine. CT angiography of the head and neck is reported as diminished branch vessel left MCA territory. Otherwise, no significant diameter reduction to account for pat ient's symptoms. Cardiomegaly with pulmonary venous congestion and small effusion. The ED team did not feel the patient had any focal deficit on the right and did comment on the CT angiography on presentation. Objective - Vital Signs Vital signs: Vital Signs Temp 97.6 F 04/01/24 20:00 Pulse 68 04/02/24 04:00 Resp 18 04/02/24 04:00 BP 117/64 04/02/24 04:00 Pulse Ox 92 L 04/02/24 04:00 FiO2 Intake & Output 04/01/24 04/02/24 04/02/24 18:59 06:59 18:59 Intake Total 1104 Output Total 1200 450 Balance -96 -450 Weight 135.3 kg Intake: Oral 1104 Output: Urine 1200 450 Other: Voiding Method Urinal Urinal - Exam Patient's mental status, speech and language functions are normal. Muscle strength is normal. Patient has edema of the lower extremities, some bruises and redness of the sams anteriorly. Mental status is normal. Patient is slightly short of breath. On checking pronator drift, patient arms gets tired and he drops it down. Not able to check for myoclonic jerks. - Labs CBC & Chem 7: 04/01/24 10:20 04/02/24 06:40 Labs: Abnormal Lab Results - Last 24 Hours (Table) 04/01/24 04/01/24 04/02/24 Range/Units 10:20 10:20 06:40 RBC 3.96 L (4.30-5.90) m/uL Hgb 10.2 L (13.0-17.5) gm/dL Hct 35.7 L (39.0-53.0) % MCHC 28.7 L (31.0-37.0) g/dL Lymphocytes # 0.7 L (1.0-4.8) k/uL Monocytes # 1.1 H (0-1.0) k/uL Chloride 110 H (98-107) mmol/L BUN 22 H (9-20) mg/dL Glucose 121 H 124 H (74-99) mg/dL Calcium 7.9 L 7.9 L (8.4-10.2) mg/dL Microbiology - Last 24 Hours (Table) 03/30/24 12:57 Blood Culture - Preliminary Blood 03/30/24 14:00 Anaerobic Culture - Preliminary Leg - Left Assessment and Plan Assessment: Syncopal episode likely due to hypoxia since not compliant using his nasal canuli. Imaging showing cardiomegaly with pulmonary venous congestion Severe dysnpea and is wheezing without auscultation Diminished branch vessel left MCA on CTA. There is no focal deficit on right. Dr. Martinez felt imaging showing artifact and felt Left M1/M2 is patent. Underlying history of congestive heart failure History of atrial fibrillation on Eliquis status post AICD. Patient will undergo AICD battery replacement on , 04/02/2024. Possible restless legs. Perhaps related to iron deficiency. Symptoms much improved with low-dose Requip. History of stroke in 2006 without any residual deficit Acute kidney injury History of mild to moderate coronary artery disease Status post TAVR Elevated cardiac enzymes. Iron deficiency Plan: EEG was performed, which was abnormal due to background slowing of mild to moderate degree, suggestive of encephalopathy. No focal, lateralized or epileptiform activity was seen. Cannot obtain MRI of the brain since the patient has AICD Patient is complaining of restless legs. B12 1169, folate 4.9. Patient will be started on folate replacement. Serum iron is low 22, TIBC 319 (228-460), percent saturation 6.90 (15-50) and transferrin 228. Patient has iron deficiency. Suggest iron replacement to help with restless legs. Patient states his restless legs have much improved since started on Requip 0.25 mg at bedtime. Patient informed about possibility of drowsiness, and worsening of edema. Denies any side effects of Requip. Cardiology is on board. 2-D echo revealed technically difficult study. Left ventricular EF is 55%. No obvious regional wall motion abnormality. Mild concentric LVH. Other chambers not well visualized. Bioprosthetic aortic valve with mean gradient of 18 mm edgy. No regurgitation. No paravalvular leak. Patient is on Eliquis 5 mg twice daily. Patient is on Lipitor 40 mg nightly Patient was counseled on using his nasal cannula on a regular basis. Defer the rest of the medical management to primary and other specialist Neurologically clear.
--- NOTE | 2024-04-02 14:23 | P.PN ---
Subjective HISTORY OF PRESENT ILLNESS: The patient is an 84-year-old male with a history of atrial fibrillation, permanent pacemaker implantation, mild to moderate CAD and status post TAVR who is scheduled to undergo generator change by Dr. Moseley and presented after a fall. Apparently he was working in his shed, fell it is unclear if he had a syncopal episode. He crawled back home. He denies any symptoms of chest discomfort, dizziness or palpitations. He does not feel that his breathing is any different yet he is limited in his physical activity. In the past his systolic function was preserved. He has chronic peripheral edema and recent cellulitis. He has no recent PND nor orthopnea. It is unclear from him or his if he had full syncopal episode. In the emergency room he was noted to have mild troponin elevation. There is no evidence of pacemaker malfunction. His knee x-ray showed no evidence of fracture. Medications: Eliquis 5 mg twice a day, furosemide 40 mg twice a day, metoprolol succinate 50 mg daily, rosuvastatin 20 mg daily, iron, Trelegy 03/30/2024 Patient examined this morning at the bedside. Patient currently denies chest pain or pressure. He reports mild shortness of breath. Vital signs are stable. March 31 2024 Patient examined this morning at the bedside. Patient currently denies chest pain or pressure. He reports improvement in his shortness of breath. He continues to have lower extremity edema. Pacemaker was interrogated with no significant events noted. Echocardiogram completed revealing ejection fraction 55%, bioprosthetic aortic valve with a mean gradient of 18 mmHg, no aortic regurgitation, mild tricuspid regurgitation April 01, 2024 Patient examined this morning at bedside. Patient currently denies chest pain or pressure. He continues to report shortness of breath. He remains on antibiotics for his lower extremity cellulitis. He continues to have lower extremity edema although improving. He remains on IV Lasix 40 mg every 12 hours. Kidney function stable. Creatinine today 1.05. 04/02 Patient seen and examined. He states overall he feels somewhat better. Continues diuresis with IV Lasix and creatinine stable 0.9. Denies any chest pain or pressure. Pacemaker generator change has been rescheduled due to concern of possible infection. PHYSICAL EXAM: VITAL SIGNS: Reviewed. GENERAL: Well-developed in no acute distress. NECK: Supple. No JVD or thyromegaly LUNGS: Respirations even and unlabored. Lungs essentially clear to auscultation bilaterally. HEART: Regular rate and rhythm. S1 and S2 heard. Systolic murmur noted. EXTREMITIES: Normal range of motion. No clubbing or cyanosis. Peripheral pulses intact. 2+ bilateral lower extremity edema with ulcerations noted. ASSESSMENT: Syncope Acute on chronic heart failure with preserved EF Bilateral lower extremity lacerations with cellulitis, wound culture positive for gram-negative bacilli Persistent atrial fibrillation, on Eliquis Acute kidney injury, improved Elevated troponins, likely acute myocardial injury without ischemia, secondary to LUIS A History of aortic stenosis with TAVR Status post permanent pacemaker implantation with His bundle pacing, scheduled for generator change Mild to moderate CAD by cardiac catheterization 2018 Hyperlipidemia PLAN: . Continue current cardiac medications Continue IV Lasix 40 mg every 12 hours Daily weights, accurate intake and output, and monitoring of kidney function Continue telemetry monitoring Device generator change initially scheduled for tomorrow. This will be canceled due to patient's bilateral lower extremity cellulitis. Patient's procedure will be rescheduled in approximately 10 to 14 days once he is medically stable and he has completed his course of outpatient antibiotics. Further recommendations pending patient course Objective - Vital Signs Vital signs: Vital Signs Temp 97.9 F 04/02/24 11:45 Pulse 76 04/02/24 11:54 Resp 18 04/02/24 11:45 BP 152/71 04/02/24 11:45 Pulse Ox 98 04/02/24 11:45 FiO2 Intake & Output 04/01/24 04/02/24 04/02/24 18:59 06:59 18:59 Intake Total 1104 446 Output Total 1200 450 50 Balance -96 -450 396 Weight 135.3 kg Intake: Oral 1104 446 Output: Urine 1200 450 50 Other: Voiding Method Urinal Urinal Urinal - Labs CBC & Chem 7: 04/01/24 10:20 04/02/24 06:40 Labs: Abnormal Lab Results - Last 24 Hours (Table) 04/02/24 Range/Units 06:40 Chloride 110 H (98-107) mmol/L Glucose 124 H (74-99) mg/dL Calcium 7.9 L (8.4-10.2) mg/dL Microbiology - Last 24 Hours (Table) 03/30/24 14:00 Gram Stain - Final Leg - Left Wound Culture - Final Leclericia adecarboxylata 03/30/24 12:57 Blood Culture - Preliminary Blood 03/30/24 14:00 Anaerobic Culture - Preliminary Leg - Left
--- NOTE | 2024-04-02 16:59 | P.PN ---
Subjective Progress Note Date: 04/02/24 Principal diagnosis: Reason for follow-up is bilateral lower extremity wound and cellulitis Patient is a 84-year-old male with past medical history significant for atrial fibrillation hypertension hyperlipidemia CVA TIA COPD heart failure did have an AICD and apparently scheduled for change of the generator presenting to the hospital after the patient had a fall and did have multiple laceration to the lower extremity and concerning for cellulitis. On today's evaluation that is 04/02/2024,the patient denies any fever or any chills, patient is breathing comfortably on room air, the patient denies chest pain shortness of breath and no significant cough, patient denies abdominal pain, no nausea vomiting or diarrhea. Denies any worsening pain to bilateral lower extremity. Patient did have a creatinine 0.96 left leg is growing gram-negative with sensitivities pending Objective - Vital Signs Vital signs: Vital Signs Temp 97.9 F 04/02/24 11:45 Pulse 72 04/02/24 15:35 Resp 17 04/02/24 15:23 BP 135/88 04/02/24 15:23 Pulse Ox 99 04/02/24 15:23 FiO2 Intake & Output 04/01/24 04/02/24 04/02/24 18:59 06:59 18:59 Intake Total 1104 446 Output Total 1200 450 50 Balance -96 -450 396 Weight 135.3 kg Intake: Oral 1104 446 Output: Urine 1200 450 50 Other: Voiding Method Urinal Urinal Urinal - Exam GENERAL DESCRIPTION: An elderly male lying in bed in no distress RESPIRATORY SYSTEM: Unlabored breathing , decreased breath sounds at bases HEART: S1 S2 regular rate and rhythm , ABDOMEN: Soft , no tenderness EXTREMITIES: Bilateral legs wound currently dressed redness decreased - Labs CBC & Chem 7: 04/01/24 10:20 04/02/24 06:40 Labs: Abnormal Lab Results - Last 24 Hours (Table) 04/02/24 Range/Units 06:40 Chloride 110 H (98-107) mmol/L Glucose 124 H (74-99) mg/dL Calcium 7.9 L (8.4-10.2) mg/dL Microbiology - Last 24 Hours (Table) 03/30/24 14:00 Gram Stain - Final Leg - Left Wound Culture - Final Leclericia adecarboxylata 03/30/24 12:57 Blood Culture - Preliminary Blood 03/30/24 14:00 Anaerobic Culture - Preliminary Leg - Left Assessment and Plan (1) Bilateral leg ulcer Current Visit: Yes Status: Acute Code(s): L97.919 - NON-PRS CHRONIC ULC UNSP PRT OF R LOW LEG W UNSP SEVERITY; L97.929 - NON-PRS CHRONIC ULC UNSP PRT OF L LOW LEG W UNSP SEVERITY SNOMED Code(s): 98647137 (2) Bilateral lower leg cellulitis Current Visit: Yes Status: Acute Code(s): L03.116 - CELLULITIS OF LEFT LOWER LIMB; L03.115 - CELLULITIS OF RIGHT LOWER LIMB SNOMED Code(s): 969027339 Plan: 1patient with a bilateral lower extremity laceration and did have evidence of cellulitis likely from gram-positive skin rachelle gram-negative infection less likely but not excluded infected local cultures currently growing gram-negative bacilli with ID sensitivities pending 2-patient to continue with cefepime 2 g every 8 hours while waiting for the culture to finalize to determine his discharge antibiotics and monitor clinical course closely Dictation was produced using [employer] dictation software. please excuse any grammatical, word or spelling errors. Time with Patient: Less than 30
[2024-04-02] MEDS: HALOPERIDOL LACTATE 5 MG/ML 1 ML VIAL IM STA (18:27)
[2024-04-02] MEDS: methylPREDNISolone SOD SUCCI 125 MG/2 ML VIAL IV SCH (18:28)
--- NOTE | 2024-04-02 20:38 | XR ---
EXAM: XR chest 1V portable CLINICAL INDICATION:Male, 84 years old with history of new onset SOB; [facility] COMPARISON: 03/28/2024 TECHNIQUE: Chest single view. FINDINGS: Exam is limited by patient body habitus and underpenetration. Lines/tubes/devices: Left chest pacemaking device grossly unchanged. Cardiomediastinum: Cardiac silhouette appears moderately enlarged. Unremarkable mediastinal silhouette. Partially calcified aorta. Vasculature: Similar central vascular congestion and mild interstitial prominence which could indica te edema and/or chronic changes. Lungs/pleura: No consolidation, large effusion, or visible pneumothorax. Small effusions not excluded. Bones/soft tissues: Bony thorax appears grossly intact as seen. Regional soft tissues appear unremarkable. IMPRESSION: Limited study. Cardiomegaly with mild central congestive changes, similar to prior.
[2024-04-02] MEDS ORDERED: predniSONE 20 MG TAB PO SCH (22:00)
--- NOTE | 2024-04-03 11:57 | P.PN ---
Subjective Progress Note Date: 04/02/24 04/02/2024: Patient was seen for a follow-up. Patient sitting in the recliner. He appears short of breath. He just choked on some food. He is restless legs are in control. No new neurological concerns. 04/01/2024: Patient was seen for a follow-up. Patient is sitting comfortably in the recliner. He states his restless legs symptoms have much improved. Denies any side effect of medication. 03/31/2024: Patient was seen for follow-up. Denies any further syncopal spell. Patient states his restless legs symptoms have improved since he started Requip last night. 03/30/2024: Patient was seen for follow-up. Patient initially seen by Dr. Alberto Martinez. Please refer to his note for details. Patient is presented with syncope. Patient probably has some degree of hypoxia, since he was not using his home nasal cannula for oxygen. He is also wheezing. Patient is laying comfortably in the bed. He states he takes couple pain pills as both legs hurt. Both legs have tendency to jump up and down. Some of this Hospital Visit Consisted of: Blood cell is 15.6 and predominant neutrophilic. All is 1.52 Serum glucose is 83 Calcium is 8.7 TSH is 1.6.0 Troponin is 0.089 CK level is 197. CT Head is reported as age-related atrophy and chronic small vessel ischemic change without acute intracranial seen at this time. I personally reviewed the CT and agree with read. CT cervical spine reported as no evidence for acute fracture or subluxation of the cervical spine. CT angiography of the head and neck is reported as diminished branch vessel left MCA territory. Otherwise, no significant diameter reduction to account for patient's symptoms. Cardiomegaly with pulmonary venous congestion and small effusion. The ED team did not feel the patient had any focal deficit on the right and did comment on the CT angiography on presentation. Objective - Vital Signs Vital signs: Vital Signs Temp 97.9 F 04/02/24 11:45 Pulse 72 04/02/24 15:35 Resp 17 04/02/24 15:23 BP 135/88 04/02/24 15:23 Pulse Ox 99 04/02/24 15:23 FiO2 Intake & Output 04/01/24 04/02/24 04/02/24 18:59 06:59 18:59 Intake Total 1104 446 Output Total 1200 450 50 Balance -96 -450 396 Weight 135.3 kg Intake: Oral 1104 446 Output: Urine 1200 450 50 Other: Voiding Method Urinal Urinal Urinal - Exam Patient's mental status, speech and language functions are normal. Muscle strength is normal. Patient has edema of the lower extremities, some bruises and redness of the sams anteriorly. Mental status is normal. Patient is slightly short of breath. On checking pronator drift, patient arms gets tired and he drops it down. Not able to check for myoclonic jerks. Patient has significant peripheral edema. - Labs CBC & Chem 7: 04/01/24 10:20 04/02/24 06:40 Labs: Abnormal Lab Results - Last 24 Hours (Table) 04/02/24 Range/Units 06:40 Chloride 110 H (98-107) mmol/L Glucose 124 H (74-99) mg/dL Calcium 7.9 L (8.4-10.2) mg/dL Microbiology - Last 24 Hours (Table) 03/30/24 14:00 Gram Stain - Final Leg - Left Wound Culture - Final Leclericia adecarboxylata 03/30/24 12:57 Blood Culture - Preliminary Blood 03/30/24 14:00 Anaerobic Culture - Preliminary Leg - Left Assessment and Plan Assessment: Syncopal episode likely due to hypoxia since not compliant using his nasal canuli. Imaging showing cardiomegaly with pulmonary venous congestion Severe dysnpea and is wheezing without auscultation Diminished branch vessel left MCA on CTA. There is no focal deficit on right. Dr. Martinez felt imaging showing artifact and felt Left M1/M2 is patent. Underlying history of congestive heart failure History of atrial fibrillation on Eliquis status post AICD. Patient will undergo AICD battery replacement on , 04/02/2024. Possible restless legs. Perhaps related to iron deficiency. Symptoms much improved with low-dose Requip. History of stroke in 2006 without any residual deficit Acute kidney injury History of mild to moderate coronary artery disease Status post TAVR Elevated cardiac enzymes. Iron deficiency Plan: EEG was performed, which was abnormal due to background slowing of mild to moderate degree, suggestive of encephalopathy. No focal, lateralized or epileptiform activity was seen. Cannot obtain MRI of the brain since the patient has AICD Patient is complaining of restless legs. B12 1169, folate 4.9. Patient will be started on folate replacement. Serum iron is low 22, TIBC 319 (228-460), percent saturation 6.90 (15-50) and transferrin 228. Patient has iron deficiency. Suggest iron replacement to help with restless legs. Patient states his restless legs have much improved since started on Requip 0.25 mg at bedtime. Patient informed about possibility of drowsiness, and worsening of edema. Denies any side effects of Requip. Cardiology is on board. 2-D echo revealed technically difficult study. Left ventricular EF is 55%. No obvious regional wall motion abnormality. Mild concentric LVH. Other chambers not well visualized. Bioprosthetic aortic valve with mean gradient of 18 mm edgy. No regurgitation. No paravalvular leak. Patient is on Eliquis 5 mg twice daily. Patient is on Lipitor 40 mg nightly Patient was counseled on using his nasal cannula on a regular basis. Neurologically clear. Other management as per IM and other specialties on board.
--- NOTE | 2024-04-03 12:16 | P.DS ---
Providers Date of admission: 03/30/24 10:50 Expected date of discharge: 04/03/24 Attending physician: Blaise Park Consults: 03/29/24 10:05 Consult Physician Routine Consulting Provider: Amaury Rios Consult Reason/Comments: Needs new pacemaker, abnormal troponin Do you want consulting provider notified?: Yes 03/29/24 10:06 Consult Physician Routine Consulting Provider: Alberto Martinez Consult Reason/Comments: syncope Do you want consulting provider notified?: Yes 03/31/24 11:34 Consult Physician Routine Consulting Provider: Ronak Naik Consult Reason/Comments: cellulitis, upcoming generator change Do you want consulting provider notified?: Yes 04/02/24 17:55 Consult Physician Stat Consulting Provider: Richard Martinez Consult Reason/Comments: respiratory distress Do you want consulting provider notified?: Yes Primary care physician: Blaise Park Hospital Course: Final Diagnoses: Syncope Acute on chronic diastolic CHF, exacerbation Acute on chronic hypoxic respiratory failure secondary to the above Cellulitis, bilateral lower extremities, abrasions, lacerations. 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 Apparently yesterday no one was home and he was out working in his shed. He had either fallen or lost consciousness, he does not recall, and then proceeded to crawl approximately 75 feet. He was down for several hours. He has multiple abrasions and contusions throughout his body. He has congestive heart failure and A-fib and is on apixaban and furosemide. His overall health status has been poor. He has debility and uses a walker or canes to ambulate. His is at bedside. Currently denies any chest pain pressure shortness of breath nausea or vomiting. He is due to have his pacemaker changed tomorrow. Vital signs are essentially normal exception of respiratory rate is elevated. He does have oxygen at home now and his pulse ox 90% on 4 L currently. Laboratory studies show a slight leukocytosis of 15.6 with hemoglobin 11.8. There is left shift. INR is 1.4, BUN and creatinine are slightly elevated showing GFR 41, troponin is abnormal at 0.089 imaging was reviewed but is essentially negative. EKG shows paced rhythm 03/30/2024 sitting up in chair, reports shortness of breath, maintaining O2 sats in the 90s on 4 L nasal cannula. Diuresing well on Lasix IV push with 24-hour JAME reflecting a negative fluid balance. Creatinine improving, decreased to 1.25 denies chest pain, palpitations. 03/31/2024 maintained on cefazolin, afebrile, normal WBC. Continues diuresing well on Lasix IV push with 24-hour I&O reflecting a negative fluid balance. Currently lying flat, denies chest pain, palpitations or shortness of breath, maintaining O2 sats in the high 90s on 2 L nasal cannula. Potassium 3.4, supplements ordered, magnesium 2. Pacemaker interrogated, cardiology reports no arrhythmias detected. Echo reporting technically difficult study, EF 55% normal LV cavity size, mild concentric LVH, other chambers not well-visualized, bioprosthetic aortic valve with mean gradient of 18mmHg, no regurgitation or paravalvular leak appreciated. 04/01/2024 wound cultures finalizing, currently reporting gram-negative bacilli. Preliminary blood culture reporting no growth after 24 hours. antibiotics adjusted to cefepime as per infectious disease, along with local wound care. Afebrile, normal WBC. Hemoglobin 10.2, platelets 172. decreased shortness of breath. Diuresing well on Lasix IV push with 24-hour JAME reflecting a negative fluid balance. potassium 3.5, supplements ordered. Bicarb 30 BUN 22, creatinine 1.05. Maintaining O2 sats in the high 90s on 2 L nasal cannula. Blood sugars controlled. Denies chest pain, palpitations. Reports seasonal allergies, eyes reddened with clear drainage, reports he normally uses allergy eyedrops this time of the year. Significant clinical improvement. Patient will be discharged to [facility], [place], operated by [facility] today in a stable condition with guarded prognosis pending final DC recommendations/diuretics and clearance as per cardiology. Patient has been cleared by infectious disease with DC antibiotics noted. Microbiology 03/30/24 12:57 Blood Blood Culture - Preliminary 03/30/24 14:00 Leg - Left Gram Stain - Final 03/30/24 14:00 Leg - Left Wound Culture - Final Ruela kailynboxylata 03/30/24 14:00 Leg - Left Anaerobic Culture - Preliminary The impression and plan of care has been dictated as directed. : I performed a history and examination of this patient, discussed the same with the dictator. I agree with the dictator's note ,documented as a scribe. Any additional findings or plans will be noted. Patient Condition at Discharge: Stable Plan - Discharge Summary New Discharge Prescriptions: New Ketorolac 0.5% Ophth Soln [Acular 0.5%] 1 drops BOTH EYES QID 7 Days #1 ml Gabapentin [Neurontin] 300 mg PO HS #3 cap cefUROXime axetiL [Ceftin] 500 mg PO BID 10 Days #20 tab Ipratropium-Albuterol Nebulize [Duoneb 0.5 mg-3 mg/3 ml Soln] 3 ml INHALATION RT-QID each Ipratropium-Albuterol Nebulize [Duoneb 0.5 mg-3 mg/3 ml Soln] 3 ml INHALATION Q4H PRN each PRN Reason: Shortness Of Breath Or Wheezing Folic Acid 1 mg PO DAILY tab Nystatin 100,000 Unit/gm Powd [Mycostatin Powder] 1 applic TOPICAL TID each predniSONE 10 mg PO DIRECTED #30 tab rOPINIRole HCL [Requip] 0.25 mg PO HS #3 tab Continue Metoprolol Succinate (ER) [Toprol XL] 50 mg PO DAILY Furosemide [Lasix] 40 mg PO BID Apixaban [Eliquis] 5 mg PO BID Rosuvastatin [Crestor] 20 mg PO HS Fluticasone/Umeclidin/Vilanter [Trelegy Ellipta 100-62.5-25] 1 puff INHALATION RT-DAILY Ferrous Sulfate [Iron (65 MG Elemental)] 325 mg PO DAILY Discontinued Ipratropium-Albuterol Nebulize [Duoneb 0.5 mg-3 mg/3 ml Soln] 3 ml INHALATION RT-QID PRN PRN Reason: Shortness Of Breath Discharge Medication List Metoprolol Succinate (ER) [Toprol XL] 50 mg PO DAILY 08/12/19 [History] Furosemide [Lasix] 40 mg PO BID 03/30/22 [History] Fluticasone/Umeclidin/Vilanter [Trelegy Ellipta 100-62.5-25] 1 puff INHALATION RT-DAILY 03/26/24 [History] Rosuvastatin [Crestor] 20 mg PO HS 03/26/24 [History] Apixaban [Eliquis] 5 mg PO BID 03/28/24 [History] Ferrous Sulfate [Iron (65 MG Elemental)] 325 mg PO DAILY 03/28/24 [History] Folic Acid 1 mg PO DAILY tab 04/03/24 [Rx] Gabapentin [Neurontin] 300 mg PO HS #3 cap 04/03/24 [Rx] Ipratropium-Albuterol Nebulize [Duoneb 0.5 mg-3 mg/3 ml Soln] 3 ml INHALATION Q4H PRN each 04/03/24 [Rx] Ipratropium-Albuterol Nebulize [Duoneb 0.5 mg-3 mg/3 ml Soln] 3 ml INHALATION RT-QID each 04/03/24 [Rx] Ketorolac 0.5% Ophth Soln [Acular 0.5%] 1 drops BOTH EYES QID 7 Days #1 ml 04/03/24 [Rx] Nystatin 100,000 Unit/gm Powd [Mycostatin Powder] 1 applic TOPICAL TID each 04/03/24 [Rx] cefUROXime axetiL [Ceftin] 500 mg PO BID 10 Days #20 tab 04/03/24 [Rx] predniSONE 10 mg PO DIRECTED #30 tab 04/03/24 [Rx] rOPINIRole HCL [Requip] 0.25 mg PO HS #3 tab 04/03/24 [Rx] Follow up Appointment(s)/Referral(s): Ramy Rojas Jr, DO [Doctor of Osteopathic Medicine] - 3 Days Activity/Diet/Wound Care/Special Instructions: BLAIR: Nathalie swing bed 2L NC O2 CBC,BMP in 3days Discharge Disposition: TRANSFER TO SNF/ECF
--- NOTE | 2024-04-03 14:22 | P.CNPUL ---
History of Present Illness Consult date: 04/03/24 Requesting physician: Ramy Rojas Jr Reason for consult: other Chief complaint: Status post fall. History of present illness: Pulmonary consult dated April 03, 2024. 84-year-old male who was seen in the emergency department, on March 28. The patient apparently had an altered mental status, having fallen, while being on blood thinners. The patient was admitted to the hospital, and we were asked to see the patient just today, for shortness of breath. Apparently his primary care physician ordered some breathing treatments, and steroids, and today he is feeling much better. The patient is on Trelegy at home, although he states that he does not have a lung issue. He is a lifelong non-smoker. He was on 3 L of oxygen. His complaints yesterday and last night included shortness of breath, coughing, and wheezing. He is not receiving any IV fluids. He has a history of atrial fibrillation, heart failure, CVA, hyperlipidemia, hypertension, osteoarthritis, pneumonia, and sleep apnea syndrome. He does use CPAP for his sleep apnea syndrome. He also has a history of skin cancer, and pneumonia. He does have also have a history of previous AICD placement, and cardiac valve replacement, as well as heart catheterization, among other procedures. The patient appears not to be in any distress. There is no conversational dyspnea or audible wheezing. He admits to feeling much better. Current labs include a white count of 8.9, hemoglobin 10.2, hematocrit 35.7, and platelet count 1 72,000. Sodium 143, potassium 3.8, chlorides 110, CO2 29, BUN 20, creatinine 0.96. Glucose is 124. Calcium 7.9. Troponin was 0.025. Chest x-ray from March 28, shows evidence of cardiomegaly, with pulmonary vascular congestion. Review of Systems REVIEW OF SYSTEMS: CONSTITUTIONAL: [Negative.] NEUROLOGIC: [ Negative.] HEENT: [ Negative.] CARDIAC: [Negative.] PULMONARY: Shortness of breath, much improved. GI: [Negative.] : [Negative.] RHEUMATOLOGIC: [ Negative.] IMMUNOLOGIC: [ Negative.] ENDOCRINE: [Negative. ] DERMATOLOGIC: [Negative.] Past Medical History Past Medical History: Atrial Fibrillation, Cancer, Heart Failure, COPD, CVA/TIA, Hyperlipidemia, Hypertension, Osteoarthritis (OA), Pneumonia, Sleep Apnea/ CPAP/BIPAP Additional Past Medical History / Comment(s): recent echo, SOB w/exertion, uses CPAP, hx. skin cancer, hx. stroke 2006-no residual effects, pneumonia in 2019, see Dr Moseley [facility], cellulitis History of Any Multi-Drug Resistant Organisms: MRSA Date of last positivie culture/infection: 05/13/19 MDRO Source:: BACK Past Surgical History: AICD, Cardiac Valve Replacement, Heart Catheterization, Hernia Repair, Orthopedic Surgery Additional Past Surgical History / Comment(s): 2nd finger right hand reattached, TAVR 2019 Past Anesthesia/Blood Transfusion Reactions: No Reported Reaction Type of Cardiac Device: AICD Device Placement Date:: 2014 Past Psychological History: No Psychological Hx Reported Smoking Status: Never smoker Past Alcohol Use History: None Reported Past Drug Use History: None Reported - Past Family History Brother(s) Family Medical History: Cancer Medications and Allergies Home Medications Medication Instructions Recorded Confirmed Type Metoprolol Succinate (ER) [Toprol 50 mg PO DAILY 08/12/19 03/28/24 History XL] Furosemide [Lasix] 40 mg PO BID 03/30/22 03/28/24 History Fluticasone/Umeclidin/Vilanter 1 puff INHALATION RT-DAILY 03/26/24 03/28/24 History [Alyssa Ellipta 100-62.5-25] Rosuvastatin [Crestor] 20 mg PO HS 03/26/24 03/28/24 History Apixaban [Eliquis] 5 mg PO BID 03/28/24 03/28/24 History Ferrous Sulfate [Iron (65 MG 325 mg PO DAILY 03/28/24 03/28/24 History Elemental)] Folic Acid 1 mg PO DAILY tab 04/03/24 Rx Gabapentin [Neurontin] 300 mg PO HS #3 cap 04/03/24 Rx Ipratropium-Albuterol Nebulize 3 ml INHALATION Q4H PRN each 04/03/24 Rx [Duoneb 0.5 mg-3 mg/3 ml Soln] Ipratropium-Albuterol Nebulize 3 ml INHALATION RT-QID each 04/03/24 Rx [Duoneb 0.5 mg-3 mg/3 ml Soln] Ketorolac 0.5% Ophth Soln [Acular 1 drops BOTH EYES QID 7 Days #1 ml 04/03/24 Rx 0.5%] Nystatin 100,000 Unit/gm Powd 1 applic TOPICAL TID each 04/03/24 Rx [Mycostatin Powder] cefUROXime axetiL [Ceftin] 500 mg PO BID 10 Days #20 tab 04/03/24 Rx predniSONE 10 mg PO DIRECTED #30 tab 04/03/24 Rx rOPINIRole HCL [Requip] 0.25 mg PO HS #3 tab 04/03/24 Rx Allergies Allergy/AdvReac Type Severity Reaction Status Date / Time aspirin Allergy Severe throat Verified 03/28/24 20:03 swelling Physical Exam Osteopathic Statement: *. No significant issues noted on an osteopathic structural exam other than those noted in the History and Physical/Consult. Vitals: Vital Signs Temp Pulse Pulse Pulse Resp BP Pulse Ox 04/03/24 12:00 98.1 F 71 18 131/64 100 04/03/24 09:57 76 04/03/24 09:43 80 04/03/24 08:00 97.6 F 68 72 18 119/69 98 04/03/24 04:00 72 18 118/64 95 04/03/24 00:00 70 18 108/69 98 04/02/24 20:00 97.9 F 73 30 H 136/70 94 L 04/02/24 18:51 72 04/02/24 18:38 64 04/02/24 17:48 26 H 91 L 04/02/24 15:35 72 04/02/24 15:23 77 17 135/88 99 04/02/24 15:21 72 Intake and Output 04/02/24 04/03/24 04/03/24 22:59 06:59 14:59 Intake Total 766 240 Output Total 300 600 Balance 466 -600 240 Intake: Oral 766 240 Output: Urine 300 600 Other: Voiding Method Urinal Urinal Urinal # Voids 1 No acute distress, oriented 3. Currently on 3 L. No respiratory distress. No conversational dyspnea. No audible wheezing. HEENT examination is grossly unremarkable. Mucous membranes are moist. No oral lesions. Neck supple. Full range of motion. No adenopathy thyromegaly or neck vein distention. Cardiovascular examination reveals regular rhythm rate. S1-S2 normal. No S3 or S4. No discernible murmur noted. Heart rate 76 bpm. Heart sounds distant. Lungs reveal mostly clear breath sounds. Minimal wheezes. No rhonchi or crackles. Breath sounds equal bilaterally. 3 L saturation 100%. Abdomen is, but soft, with bowel sounds. No masses or tenderness. Extremities reveal slight edema. Skin is without rash or lesion. Neurologic examination is brief but nonfocal. Results - Laboratory Findings CBC and BMP: 04/01/24 10:20 04/02/24 06:40 PT/INR, D-dimer PT 14.8 sec (10.0-12.5) H 03/28/24 16:10 INR 1.4 (<1.2) H 03/28/24 16:10 Abnormal lab findings: Abnormal Labs 03/28/24 03/28/24 03/28/24 16:10 16:10 16:10 WBC 15.6 H RBC Hgb 11.8 L Hct MCHC 29.4 L Neutrophils # 12.4 H Lymphocytes # 0.9 L Monocytes # 1.8 H PT 14.8 H INR 1.4 H Potassium Chloride 108 H Carbon Dioxide 18 L BUN 25 H Creatinine 1.52 H Glucose Calcium Iron % Saturation Total Bilirubin 1.9 H AST Creatine Kinase 197 H Troponin I Total Protein Albumin Vitamin B12 03/28/24 03/29/24 03/29/24 16:10 11:42 15:00 WBC RBC Hgb Hct MCHC Neutrophils # Lymphocytes # Monocytes # PT INR Potassium Chloride Carbon Dioxide BUN Creatinine Glucose Calcium Iron % Saturation Total Bilirubin AST Creatine Kinase Troponin I 0.089 H* 0.096 H* 0.084 H* Total Protein Albumin Vitamin B12 03/30/24 03/30/24 03/30/24 08:45 08:45 08:45 WBC RBC 4.19 L Hgb 10.7 L Hct 37.7 L MCHC 28.4 L Neutrophils # 7.8 H Lymphocytes # 0.7 L Monocytes # 1.2 H PT INR Potassium Chloride 109 H Carbon Dioxide 32 H BUN 27 H Creatinine Glucose Calcium 8.0 L Iron 22 L % Saturation 6.90 L Total Bilirubin 1.9 H AST 103 H Creatine Kinase Troponin I Total Protein 6.0 L Albumin 3.0 L Vitamin B12 1169.0 H 03/31/24 04/01/24 04/01/24 07:53 10:20 10:20 WBC RBC 3.96 L Hgb 10.2 L Hct 35.7 L MCHC 28.7 L Neutrophils # Lymphocytes # 0.7 L Monocytes # 1.1 H PT INR Potassium 3.4 L Chloride Carbon Dioxide 32 H BUN 26 H 22 H Creatinine Glucose 137 H 121 H Calcium 7.8 L 7.9 L Iron % Saturation Total Bilirubin AST Creatine Kinase Troponin I Total Protein Albumin Vitamin B12 04/02/24 06:40 WBC RBC Hgb Hct MCHC Neutrophils # Lymphocytes # Monocytes # PT INR Potassium Chloride 110 H Carbon Dioxide BUN Creatinine Glucose 124 H Calcium 7.9 L Iron % Saturation Total Bilirubin AST Creatine Kinase Troponin I Total Protein Albumin Vitamin B12 - Diagnostic Findings Chest x-ray: image reviewed Assessment and Plan Assessment: Shortness of breath, cough, and wheezing, all much improved, possibly related to mild fluid overload. The patient appears not to have a pulmonary diagnosis, and states he is a lifelong non-smoker. He denies asthma. History of atrial fibrillation. History of CHF. Aortic stenosis, S/P transcatheter aortic valve replacement. History of CVA/TIA. History of hyperlipidemia. History of hypertension. History of osteoarthritis. History of pneumonia. History of obstructive sleep apnea syndrome, on CPAP. Status post AICD placement. Obesity. Plan: Plan dated April 03, 2024. The patient is seen today in room 368. He is interviewed, and examined. Labs, x-rays, and medications are reviewed. The patient is feeling much better. He states that whoever gave him the breathing treatments and steroids yesterday, made a big difference in terms of how he was feeling. Currently, he is not having any pulmonary complaints whatsoever. The patient is a lifelong non- smoker. For unclear reasons, the patient was on Trelegy at home. Currently, he is on cefepime, and updrafts. The patient did receive steroids yesterday. In addition, he is on Solu-Medrol, 60 mg every 6 hours. That will be changed to prednisone 30 mg a day. Time with Patient: Greater than 30
--- NOTE | 2024-04-03 14:30 | P.PN ---
Subjective Progress Note Date: 04/02/24 H&P Date: 03/29/24 Chief Complaint: Syncope This is a 84-year-old male well-known to the practice. Apparently yesterday no one was home and he was out working in his shed. He had either fallen or lost consciousness, he does not recall, and then proceeded to crawl approximately 75 feet. He was down for several hours. He has multiple abrasions and contusions throughout his body. He has congestive heart failure and A-fib and is on apixaban and furosemide. His overall health status has been poor. He has debility and uses a walker or canes to ambulate. His is at bedside. Currently denies any chest pain pressure shortness of breath nausea or vomiting. He is due to have his pacemaker changed tomorrow. Vital signs are essentially normal exception of respiratory rate is elevated. He does have oxygen at home now and his pulse ox 90% on 4 L currently. Laboratory studies show a slight leukocytosis of 15.6 with hemoglobin 11.8. There is left shift. INR is 1.4, BUN and creatinine are slightly elevated showing GFR 41, troponin is abnormal at 0.089 imaging was reviewed but is essentially negative. EKG shows paced rhythm 03/30/2024 sitting up in chair, reports shortness of breath, maintaining O2 sats in the 90s on 4 L nasal cannula. Diuresing well on Lasix IV push with 24-hour JAME reflecting a negative fluid balance. Creatinine improving, decreased to 1.25 denies chest pain, palpitations. 03/31/2024 maintained on cefazolin, afebrile, normal WBC. Continues diuresing well on Lasix IV push with 24-hour I&O reflecting a negative fluid balance. Currently lying flat, denies chest pain, palpitations or shortness of breath, maintaining O2 sats in the high 90s on 2 L nasal cannula. Potassium 3.4, supplements ordered, magnesium 2. Pacemaker interrogated, cardiology reports no arrhythmias detected. Echo reporting technically difficult study, EF 55% normal LV cavity size, mild concentric LVH, other chambers not well-visualized, bioprosthetic aortic valve with mean gradient of 18mmHg, no regurgitation or paravalvular leak appreciated. 04/01/2024 wound cultures finalizing, currently reporting gram-negative bacilli. Preliminary blood culture reporting no growth after 24 hours. antibiotics adjusted to cefepime as per infectious disease, along with local wound care. Afebrile, normal WBC. Hemoglobin 10.2, platelets 172. decreased shortness of breath. Diuresing well on Lasix IV push with 24-hour JAME reflecting a negative fluid balance. potassium 3.5, supplements ordered. Bicarb 30 BUN 22, creatinine 1.05. Maintaining O2 sats in the high 90s on 2 L nasal cannula. Blood sugars controlled. Denies chest pain, palpitations. Reports seasonal allergies, eyes reddened with clear drainage, reports he normally uses allergy eyedrops this time of the year. 04/02/2024 diuresing well on Lasix IV push, renal function stable, creatinine 0.96. Maintained on cefepime as per infectious disease for lower extremity cellulitis, wound cultures reporting gram-negative, finalizing. Pacemaker/generator change rescheduled due to current infection of bilateral lower extremities. Eyes improving on Ketorolac eyedrops. Maintained on Requip for restless legs with improvement reported. iron replacement added to help with restless legs as per neurology. Objective - Vital Signs Vital signs: Vital Signs Temp 97.9 F 04/02/24 11:45 Pulse 76 04/02/24 11:54 Resp 18 04/02/24 11:45 BP 152/71 04/02/24 11:45 Pulse Ox 98 04/02/24 11:45 FiO2 Intake & Output 04/01/24 04/02/24 04/02/24 18:59 06:59 18:59 Intake Total 1104 446 Output Total 1200 450 50 Balance -96 -450 396 Weight 135.3 kg Intake: Oral 1104 446 Output: Urine 1200 450 50 Other: Voiding Method Urinal Urinal Urinal - Exam GENERAL: Pleasant, alert and oriented x 3, sitting up in bed, no acute distress HEENT: Atraumatic, normocephalic.Pupils equal round and reactive to light, MMM. NECK: Supple, no JVD LUNGS: Unlabored, equal air entry,Breath sounds CTA, bilateral bases diminished HEART: Regular S1,S2 Normal, positive systolic murmur. ABDOMEN: Soft, nontender, normoactive bowel sounds. No guarding, no rebound. No masses appreciated. EXTREMITIES: Bilateral lower extremity dressings clean dry and intact. NEUROLOGICAL: Cranial nerves II through XII grossly intact. Strength and sensation grossly intact SKIN: Warm, Dry. - Labs CBC & Chem 7: 04/01/24 10:20 04/02/24 06:40 Labs: Abnormal Lab Results - Last 24 Hours (Table) 04/02/24 Range/Units 06:40 Chloride 110 H (98-107) mmol/L Glucose 124 H (74-99) mg/dL Calcium 7.9 L (8.4-10.2) mg/dL Microbiology - Last 24 Hours (Table) 03/30/24 14:00 Gram Stain - Final Leg - Left Wound Culture - Final Leclericia adecarboxylata 03/30/24 12:57 Blood Culture - Preliminary Blood 03/30/24 14:00 Anaerobic Culture - Preliminary Leg - Left Assessment and Plan Assessment: Syncope Acute on chronic diastolic CHF, exacerbation Acute on chronic hypoxic respiratory failure secondary to the above Cellulitis, bilateral lower extremities, abrasions, lacerations. Preliminary wound cultures reporting gram-negative bacilli. Wound cultures growing gram-negative bacilli Leukocytosis secondary to the above, resolved History of pacemaker, scheduled for generator change Chronic persistent atrial fibrillation, anticoagulated on Eliquis CAD History of aortic stenosis, TAVR Hyperlipidemia COPD Medical debility Abnormal troponin, flat troponins Stage IIIa chronic renal failure History of CVA Hypokalemia Plan: Continue on current medication resume ,monitoring and symptomatic treatment. Diuretics as per cardiology. Pacemaker/generator change rescheduled outpatient, wound cultures finalizing, IV antibiotics/local wound care as per Infectious disease. Discharge planning in progress for subacute rehab pending finalized wound cultures. The impression and plan of care has been dictated as directed. : I performed a history and examination of this patient, discussed the same with the dictator. I agree with the dictator's note ,documented as a scribe. Any additional findings or plans will be noted.
--- NOTE | 2024-04-03 16:04 | P.PN ---
Subjective Progress Note Date: 04/03/24 Principal diagnosis: Reason for follow-up is bilateral lower extremity wound and cellulitis Patient is a 84-year-old male with past medical history significant for atrial fibrillation hypertension hyperlipidemia CVA TIA COPD heart failure did have an AICD and apparently scheduled for change of the generator presenting to the hospital after the patient had a fall and did have multiple laceration to the lower extremity and concerning for cellulitis. On today's evaluation that is 04/03/2024,the patient remains to be afebrile, patient is on 3 L nasal cannula supplemental oxygen and denies any shortness of breath no chest pain or cough.Patient denies having any nausea or vomiting, no abdominal pain and no diarrhea has been reported denies pain to the lower extremity redness decreased. No new lab has been obtained today, local culture with Leclericia adecarboxylate Objective - Vital Signs Vital signs: Vital Signs Temp 97.6 F 04/03/24 08:00 Pulse 80 04/03/24 09:43 Resp 18 04/03/24 08:00 BP 119/69 04/03/24 08:00 Pulse Ox 98 04/03/24 08:00 FiO2 Intake & Output 04/02/24 04/03/24 04/03/24 18:59 06:59 18:59 Intake Total 672 540 Output Total 50 900 Balance 622 -360 Intake: Oral 672 540 Output: Urine 50 900 Other: Voiding Method Urinal Urinal # Voids 1 - Exam GENERAL DESCRIPTION: An elderly male lying in bed in no distress RESPIRATORY SYSTEM: Unlabored breathing , decreased breath sounds at bases HEART: S1 S2 regular rate and rhythm , ABDOMEN: Soft , no tenderness EXTREMITIES: Bilateral legs wound currently dressed redness decreased - Labs CBC & Chem 7: 04/01/24 10:20 04/02/24 06:40 Labs: Microbiology - Last 24 Hours (Table) 03/30/24 12:57 Blood Culture - Preliminary Blood 03/30/24 14:00 Gram Stain - Final Leg - Left Wound Culture - Final Leclericia adecarboxylata Assessment and Plan (1) Bilateral leg ulcer Current Visit: Yes Status: Acute Code(s): L97.919 - NON-PRS CHRONIC ULC UNSP PRT OF R LOW LEG W UNSP SEVERITY; L97.929 - NON-PRS CHRONIC ULC UNSP PRT OF L L OW LEG W UNSP SEVERITY SNOMED Code(s): 58433859 (2) Bilateral lower leg cellulitis Current Visit: Yes Status: Acute Code(s): L03.116 - CELLULITIS OF LEFT LOWER LIMB; L03.115 - CELLULITIS OF RIGHT LOWER LIMB SNOMED Code(s): 604795873 Plan: 1patient with a bilateral lower extremity laceration and did have evidence of cellulitis likely from gram-positive skin rachelle gram-negative infection less likely but not excluded infected local cultures currently growing gram-negative bacilli with ID sensitivities pending 2-patient has shown improvement to the lower extremity wound and cellulitis culture positive for gram-negative sensitive to Rocephin and cefepime finishing therapy with oral Ceftin x 10 days and close outpatient follow-up discussed with UNIT NURSE for admitting team working on discharge Dictation was produced using [employer] dictation software. please excuse any grammatical, word or spelling errors. Time with Patient: Less than 30
[2024-04-03] MEDS: polyethylene glycoL 3350 17 GM POWD.PACK PO SCH (16:19)
[2024-04-03] MEDS: traMADol 50 MG TAB PO PRN (20:18)
--- NOTE | 2024-04-03 21:09 | P.PN ---
Subjective HISTORY OF PRESENT ILLNESS: The patient is an 84-year-old male with a history of atrial fibrillation, permanent pacemaker implantation, mild to moderate CAD and status post TAVR who is scheduled to undergo generator change by Dr. Moseley and presented after a fall. Apparently he was working in his shed, fell it is unclear if he had a syncopal episode. He crawled back home. He denies any symptoms of chest discomfort, dizziness or palpitations. He does not feel that his breathing is any different yet he is limited in his physical activity. In the past his systolic function was preserved. He has chronic peripheral edema and recent cellulitis. He has no recent PND nor orthopnea. It is unclear from him or his if he had full syncopal episode. In the emergency room he was noted to have mild troponin elevation. There is no evidence of pacemaker malfunction. His knee x-ray showed no evidence of fracture. Medications: Eliquis 5 mg twice a day, furosemide 40 mg twice a day, metoprolol succinate 50 mg daily, rosuvastatin 20 mg daily, iron, Trelegy 03/30/2024 Patient examined this morning at the bedside. Patient currently denies chest pain or pressure. He reports mild shortness of breath. Vital signs are stable. March 31 2024 Patient examined this morning at the bedside. Patient currently denies chest pain or pressure. He reports improvement in his shortness of breath. He continues to have lower extremity edema. Pacemaker was interrogated with no significant events noted. Echocardiogram completed revealing ejection fraction 55%, bioprosthetic aortic valve with a mean gradient of 18 mmHg, no aortic regurgitation, mild tricuspid regurgitation April 01, 2024 Patient examined this morning at bedside. Patient currently denies chest pain or pressure. He continues to report shortness of breath. He remains on antibiotics for his lower extremity cellulitis. He continues to have lower extremity edema although improving. He remains on IV Lasix 40 mg every 12 hours. Kidney function stable. Creatinine today 1.05. 04/02 Patient seen and examined. He states overall he feels somewhat better. Continues diuresis with IV Lasix and creatinine stable 0.9. Denies any chest pain or pressure. Pacemaker generator change has been rescheduled due to concern of possible infection. 04/03 patient seen and examined. Patient was having some atypical chest pain and therefore troponin was checked and was normal. He states overall he is feeling much better. His generator change has been rescheduled. Pulmonology evaluated without much source of pulmonary source of shortness breath. He continues to have good diuresis and 1+ lower from edema. PHYSICAL EXAM: VITAL SIGNS: Reviewed. GENERAL: Well-developed in no acute distress. NECK: Supple. No JVD or thyromegaly LUNGS: Respirations even and unlabored. Lungs essentially clear to auscultation bilaterally. HEART: Regular rate and rhythm. S1 and S2 heard. Systolic murmur noted. EXTREMITIES: Normal range of motion. No clubbing or cyanosis. Peripheral p ulses intact. 2+ bilateral lower extremity edema with ulcerations noted. ASSESSMENT: Syncope Acute on chronic heart failure with preserved EF Bilateral lower extremity lacerations with cellulitis, wound culture positive for gram-negative bacilli Persistent atrial fibrillation, on Eliquis Acute kidney injury, improved Elevated troponins, likely acute myocardial injury without ischemia, secondary to LUIS A History of aortic stenosis with TAVR Status post permanent pacemaker implantation with His bundle pacing, scheduled for generator change Mild to moderate CAD by cardiac catheterization 2018 Hyperlipidemia PLAN: . Continue current cardiac medications transition to oral Lasix 40 mg twice a day Daily weights, accurate intake and output, and monitoring of kidney function Continue telemetry monitoring Device generator change initially scheduled inpatient however this will be canceled due to patient's bilateral lower extremity cellulitis. Patient's procedure will be rescheduled in approximately 10 to 14 days once he is medically stable and he has completed his course of outpatient antibiotics. stable for discharge home from cardiology standpoint Objective - Vital Signs Vital signs: Vital Signs Temp 97.6 F 04/03/24 19:25 Pulse 74 04/03/24 21:02 Resp 18 04/03/24 19:25 BP 134/49 04/03/24 19:25 Pulse Ox 98 04/03/24 19:25 FiO2 Intake & Output 04/03/24 04/03/24 04/04/24 06:59 18:59 06:59 Intake Total 540 838 Output Total 900 650 Balance -360 188 Intake: Oral 540 838 Output: Urine 900 650 Other: Voiding Method Urinal Urinal # Voids 1 2 - Labs CBC & Chem 7: 04/01/24 10:20 04/02/24 06:40 Labs: Microbiology - Last 24 Hours (Table) 03/30/24 14:00 Gram Stain - Final Leg - Left Wound Culture - Final Leclericia vanceylata 03/30/24 14:00 Anaerobic Culture - Final Leg - Left 03/30/24 12:57 Blood Culture - Preliminary Blood
[2024-04-04 05:36] LABS: Basophils % (A) 0 %; Eosinophils % (A) 0 %; HCT 33.8 % (39.0-53.0); HGB 10.1 gm/dL (13.0-17.5); Hypochromasia Marked; Lymphocytes # (A) 0.4 k/uL (1.0-4.8); Lymphocytes % (A) 3 %; MCH 26.8 pg (25.0-35.0); MCV 89.5 fL (80.0-100.0); Mean Platelet Volume 9.2; Monocytes # (A) 0.9 k/uL (0-1.0); Monocytes % (A) 6 %; Neutrophils % (A) 89 %; Platelet Count 114 k/uL (150-450); RBC 3.78 m/uL (4.30-5.90); RDW 15.2 % (11.5-15.5); WBC 14.6 k/uL (3.8-10.6)
[2024-04-04 05:52] LABS: African American GFR (CKD) 84 (>60 ml/min/1.73 sqM); Anion Gap 8 mmol/L; Blood Urea Nitrogen 39 mg/dL (9-20); Calcium 8.1 mg/dL (8.4-10.2); Carbon Dioxide 25 mmol/L (22-30); Chloride 107 mmol/L (98-107); Glucose 201 mg/dL (74-99); Non-African American GFR(CKD) 73 (>60 ml/min/1.73 sqM); Potassium 4.2 mmol/L (3.5-5.1); Sodium 140 mmol/L (137-145)
[2024-04-04] MEDS: predniSONE 10 MG TAB PO SCH (09:21)
[2024-04-04] MEDS: FUROSEMIDE 40 MG TAB PO SCH (09:21)
--- NOTE | 2024-04-04 10:29 | P.PN ---
Subjective Progress Note Date: 04/03/24 04/03/2024: Patient was seen for a follow-up. Patient is resting comfortably in the recliner. States his restless leg symptoms have resolved with Requip. 04/02/2024: Patient was seen for a follow-up. Patient sitting in the recliner. He appears short of breath. He just choked on some food. He is restless legs are in control. No new neurological concerns. 04/01/2024: Patient was seen for a follow-up. Patient is sitting comfortably in the recliner. He states his restless legs symptoms have much improved. Denies any side effect of medication. 03/31/2024: Patient was seen for follow-up. Denies any further syncopal spell. Patient states his restless legs symptoms have improved since he started Requip last night. 03/30/2024: Patient was seen for follow-up. Patient initially seen by Dr. Alberto Martinez. Please refer to his note for details. Patient is presented with syncope. Patient probably has some degree of hypoxia, since he was not using his home nasal cannula for oxygen. He is also wheezing. Patient is laying comfortably in the bed. He states he takes couple pain pills as both legs hurt. Both legs have tendency to jump up and down. Some of this Hospital Visit Consisted of: Blood cell is 15.6 and predominant neutrophilic. All is 1.52 Serum glucose is 83 Calcium is 8.7 TSH is 1.6.0 Troponin is 0.089 CK level is 197. CT Head is reported as age-related atrophy and chronic small vessel ischemic change without acute intracranial seen at this time. I personally reviewed the CT and agree with read. CT cervical spine reported as no evidence for acute fracture or subluxation of the cervical spine. CT angiography of the head and neck is reported as diminished branch vessel left MCA territory. Otherwise, no significant diameter reduction to account for patient's symptoms. Cardiomegaly with pulmonary venous congestion and small effusion. The ED team did not feel the patient had any focal deficit on the right and did comment on the CT angiography on presentation. Objective - Vital Signs Vital signs: Vital Signs Temp 98.1 F 04/03/24 12:00 Pulse 71 04/03/24 12:00 Resp 18 04/03/24 12:00 BP 131/64 04/03/24 12:00 Pulse Ox 100 04/03/24 12:00 FiO2 Intake & Output 04/02/24 04/03/24 04/03/24 18:59 06:59 18:59 Intake Total 672 540 240 Output Total 50 900 Balance 622 -360 240 Intake: Oral 672 540 240 Output: Urine 50 900 Other: Voiding Method Urinal Urinal Urinal # Voids 1 - Exam Patient's mental status, speech and language functions are normal. Muscle st rength is normal. Patient has edema of the lower extremities, some bruises and redness of the sams anteriorly. Mental status is normal. Patient is slightly short of breath. On checking pronator drift, patient arms gets tired and he drops it down. Not able to check for myoclonic jerks. Patient has significant peripheral edema. - Labs CBC & Chem 7: 04/04/24 04:55 04/04/24 04:55 Labs: Microbiology - Last 24 Hours (Table) 03/30/24 14:00 Anaerobic Culture - Final Leg - Left 03/30/24 12:57 Blood Culture - Preliminary Blood 03/30/24 14:00 Gram Stain - Final Leg - Left Wound Culture - Final Leclericia adecarboxylata Assessment and Plan Assessment: Syncopal episode likely due to hypoxia since not compliant using his nasal canuli. Imaging showing cardiomegaly with pulmonary venous congestion Severe dysnpea and is wheezing without auscultation, improved Diminished branch vessel left MCA on CTA. There is no focal deficit on right. Dr. Martinez felt imaging showing artifact and felt Left M1/M2 is patent. Underlying history of congestive heart failure History of atrial fibrillation on Eliquis status post AICD. Patient to undergo AICD battery replacement soon, within 14 days outpatient. Possible restless legs. Perhaps related to iron deficiency. Symptoms much improved with low-dose Requip. History of stroke in 2006 without any residual deficit Acute kidney injury History of mild to moderate coronary artery disease Status post TAVR Elevated cardiac enzymes. Iron deficiency Plan: EEG was performed, which was abnormal due to background slowing of mild to moderate degree, suggestive of encephalopathy. No focal, lateralized or epileptiform activity was seen. Cannot obtain MRI of the brain since the patient has AICD Patient is complaining of restless legs. B12 1169, folate 4.9. Patient will be started on folate replacement. Serum iron is low 22, TIBC 319 (228-460), percent saturation 6.90 (15-50) and transferrin 228. Patient has iron deficiency. Suggest iron replacement to help with restless legs. Patient states his restless legs have much improved since started on Requip 0.25 mg at bedtime. Patient informed about possibility of drowsiness, and worsening of edema. Denies any side effects of Requip. Cardiology is on board. 2-D echo revealed technically difficult study. Left ventricular EF is 55%. No obvious regional wall motion abnormality. Mild concentric LVH. Other chambers not well visualized. Bioprosthetic aortic valve with mean gradient of 18 mm edgy. No regurgitation. No paravalvular leak. Patient is on Eliquis 5 mg twice daily. Patient is on Lipitor 40 mg nightly Patient was counseled on using his nasal cannula on a regular basis. Neurologically clear. Other management as per IM and other specialties on board. We will sign off. Please reconsult neurology if any concerns.
--- NOTE | 2024-04-04 12:19 | P.PN ---
Subjective Progress Note Date: 04/04/24 Principal diagnosis: Shortness of breath. Pulmonary consult dated April 03, 2024. 84-year-old male who was seen in the emergency department, on March 28. The patient apparently had an altered mental status, having fallen, while being on blood thinners. The patient was admitted to the hospital, and we were asked to see the patient just today, for shortness of breath. Apparently his primary care physician ordered some breathing treatments, and steroids, and today he is feeling much better. The patient is on Trelegy at home, although he states that he does not have a lung issue. He is a lifelong non-smoker. He was on 3 L of oxygen. His complaints yesterday and last night included shortness of breath, coughing, and wheezing. He is not receiving any IV fluids. He has a history of atrial fibrillation, heart failure, CVA, hyperlipidemia, hypertension, osteoarthritis, pneumonia, and sleep apnea syndrome. He does use CPAP for his sleep apnea syndrome. He also has a history of skin cancer, and pneumonia. He does have also have a history of previous AICD placement, and cardiac valve replacement, as well as heart catheterization, among other procedures. The pat ient appears not to be in any distress. There is no conversational dyspnea or audible wheezing. He admits to feeling much better. Current labs include a white count of 8.9, hemoglobin 10.2, hematocrit 35.7, and platelet count 172,000. Sodium 143, potassium 3.8, chlorides 110, CO2 29, BUN 20, creatinine 0.96. Glucose is 124. Calcium 7.9. Troponin was 0.025. Chest x-ray from March 28, shows evidence of cardiomegaly, with pulmonary vascular congestion. Progress note dated April 04, 2024. 84-year-old male initially seen in consultation yesterday. Please see note above. The patient apparently came to the emergency department back on March 28. He came in having fallen at home, with altered mental status. Currently, the patient is doing relatively well. He continues on oxygen, 4 L. No IV fluids. He continues on cefepime, and prednisone. Will add some Symbicort as well. The patient was apparently having some additional breathing issues last night, and I asked them to provide him with some additional breathing treatments. Today he is doing well, even off oxygen. Current labs include a white count of 14.6, hemoglobin 10.1, hematocrit 33.8, and platelet count of 114,000. Sodium 140, potassium 4.2, chlorides 107, CO2 25, anion gap 8, BUN 39, and creatinine 0.95. Glucose is 201. Objective - Vital Signs Vital signs: Vital Signs Temp 98.3 F 04/04/24 09:15 Pulse 70 04/04/24 12:00 Resp 22 04/04/24 11:08 BP 145/61 04/04/24 11:08 Pulse Ox 98 04/04/24 11:08 FiO2 Intake & Output 04/03/24 04/04/24 04/04/24 18:59 06:59 18:59 Intake Total 838 540 Output Total 650 750 Balance 188 -210 Intake: Oral 838 540 Output: Urine 650 750 Straight 550 Other: Voiding Method Urinal Urinal Urinal # Voids 2 - Exam No acute distress, oriented 3. Currently on 4 L. No respiratory distress. No conversational dyspnea. No audible wheezing. HEENT examination is grossly unremarkable. Mucous membranes are moist. No oral lesions. Neck supple. Full range of motion. No adenopathy thyromegaly or neck vein distention. Cardiovascular examination reveals regular rhythm rate. S1-S2 normal. No S3 or S4. No discernible murmur noted. Heart rate 70 bpm. Heart sounds distant. Lungs reveal mostly clear breath sounds. Minimal wheezes. No rhonchi or crackles. Breath sounds equal bilaterally. 4 L saturation is 98%. Abdomen is, but soft, with bowel sounds. No masses or tenderness. Extremities reveal slight edema. No cyanosis or clubbing. Skin is without rash or lesion. Neurologic examination is brief but nonfocal. - Labs CBC & Chem 7: 04/04/24 04:55 04/04/24 04:55 Labs: Abnormal Lab Results - Last 24 Hours (Table) 04/04/24 04/04/24 Range/Units 04:55 04:55 WBC 14.6 H (3.8-10.6) k/uL RBC 3.78 L (4.30-5.90) m/uL Hgb 10.1 L (13.0-17.5) gm/dL Hct 33.8 L (39.0-53.0) % MCHC 30.0 L (31.0-37.0) g/dL Plt Count 114 L (150-450) k/uL Neutrophils # 13.0 H (1.3-7.7) k/uL Lymphocytes # 0.4 L (1.0-4.8) k/uL BUN 39 H (9-20) mg/dL Glucose 201 H (74-99) mg/dL Calcium 8.1 L (8.4-10.2) mg/dL Microbiology - Last 24 Hours (Table) 03/30/24 14:00 Gram Stain - Final Leg - Left Wound Culture - Final Leclericia adecarboxylata 03/30/24 14:00 Anaerobic Culture - Final Leg - Left Assessment and Plan Assessment: Shortness of breath, cough, and wheezing, all much improved, possibly related to mild fluid overload. The patient appears not to have a pulmonary diagnosis, and states he is a lifelong non-smoker. He denies asthma. History of atrial fibrillation. History of CHF. Aortic stenosis, S/P transcatheter aortic valve replacement. History of CVA/TIA. History of hyperlipidemia. History of hypertension. History of osteoarthritis. History of pneumonia. History of obstructive sleep apnea syndrome, on CPAP. Status post AICD placement. Obesity. Plan: Plan dated April 03, 2024. The patient is seen today in room 368. He is interviewed, and examined. Labs, x-rays, and medications are reviewed. The patient is feeling much better. He states that whoever gave him the breathing treatments and steroids yesterday, made a big difference in terms of how he was feeling. Currently, he is not having any pulmonary complaints whatsoever. The patient is a lifelong non-smo ker. For unclear reasons, the patient was on Trelegy at home. Currently, he is on cefepime, and updrafts. The patient did receive steroids yesterday. In addition, he is on Solu-Medrol, 60 mg every 6 hours. That will be changed to prednisone 30 mg a day. Plan dated April 04, 2024. The patient is seen in room 368. He apparently became short of breath last night. The patient received some additional breathing treatments. Today, I add some Symbicort 160/4.5, to his regimen. He will use it twice a day. The patient is a lifelong non-smoker. He denies a history of any lung issues including COPD, emphysema, chronic bronchitis, and asthma. The patient may be having cardiac asthma, from fluid overload. We will continue to follow make recommendations. Prognosis is guarded. Currently, he is sitting in the chair next to the bed. He is feeling well. Time with Patient: Less than 30
--- NOTE | 2024-04-04 12:48 | P.PN ---
Subjective Progress Note Date: 04/04/24 Principal diagnosis: shortness of breath heent: mod -severe senile blepheritis heart: regularly irregular rate 78 lungs: bilateral wheezes pulse ox 98% on 4 liters nascan abd soft obese + bs ext bilat lower ext wounds healing well ; Objective - Vital Signs Vital signs: Vital Signs Temp 98.3 F 04/04/24 09:15 Pulse 70 04/04/24 12:00 Resp 22 04/04/24 11:08 BP 145/61 04/04/24 11:08 Pulse Ox 98 04/04/24 11:08 FiO2 Intake & Output 04/03/24 04/04/24 04/04/24 18:59 06:59 18:59 Intake Total 838 540 Output Total 650 750 Balance 188 -210 Intake: Oral 838 540 Output: Urine 650 750 Straight 550 Other: Voiding Method Urinal Urinal Urinal # Voids 2 - Constitutional General appearance: Present: morbidly obese - EENT Eyes: Present: EOMI, PERRLA - Respiratory Respiratory: bilateral: wheezing (chronic) - Cardiovascular Rhythm: irregularly irregular Abnormal Heart Sounds: Present: systolic murmur - Murmur systolic murmur (2) Grade: III/ - Gastrointestinal General gastrointestinal: Present: normal bowel sounds, soft - Integumentary Integumentary: Present: cellulitis (bilat le wounds healing) - Musculoskeletal Musculoskeletal: Present: generalized weakness - Labs CBC & Chem 7: 04/04/24 04:55 04/04/24 04:55 Labs: Abnormal Lab Results - Last 24 Hours (Table) 04/04/24 04/04/24 Range/Units 04:55 04:55 WBC 14.6 H (3.8-10.6) k/uL RBC 3.78 L (4.30-5.90) m/uL Hgb 10.1 L (13.0-17.5) gm/dL Hct 33.8 L (39.0-53.0) % MCHC 30.0 L (31.0-37.0) g/dL Plt Count 114 L (150-450) k/uL Neutrophils # 13.0 H (1.3-7.7) k/uL Lymphocytes # 0.4 L (1.0-4.8) k/uL BUN 39 H (9-20) mg/dL Glucose 201 H (74-99) mg/dL Calcium 8.1 L (8.4-10.2) mg/dL Microbiology - Last 24 Hours (Table) 03/30/24 14:00 Gram Stain - Final Leg - Left Wound Culture - Final Igor correiaata 03/30/24 14:00 Anaerobic Culture - Final Leg - Left Assessment and Plan (1) Altered mental status Current Visit: Yes Status: Acute Code(s): R41.82 - ALTERED MENTAL STATUS, UNSPECIFIED SNOMED Code(s): 975112851 (2) Bilateral leg ulcer Current Visit: Yes Status: Acute Code(s): L97.919 - NON-PRS CHRONIC ULC UNSP PRT OF R LOW LEG W UNSP SEVERITY; L97.929 - NON-PRS CHRONIC ULC UNSP PRT OF L LOW LEG W UNSP SEVERITY SNOMED Code(s): 74757282 (3) Bilateral lower leg cellulitis Current Visit: Yes Status: Acute Code(s): L03.116 - CELLULITIS OF LEFT LOWER LIMB; L03.115 - CELLULITIS OF RIGHT LOWER LIMB SNOMED Code(s): 906356728 (4) Fall Current Visit: Yes Status: Acute Code(s): W19.XXXA - UNSPECIFIED FALL, INITIAL ENCOUNTER SNOMED Code(s): 8923453 (5) Syncope Current Visit: Yes Status: Acute Code(s): R55 - SYNCOPE AND COLLAPSE SNOMED Code(s): 676511273 (6) Bacteremia Current Visit: No Status: Acute Code(s): R78.81 - BACTEREMIA SNOMED Code(s): 7647265 (7) Congestive heart failure Current Visit: No Status: Acute Code(s): I50.9 - HEART FAILURE, UNSPECIFIED SNOMED Code(s): 04686802 Plan: rehab placement pending
--- NOTE | 2024-04-04 15:38 | P.PN ---
Subjective Progress Note Date: 04/04/24 Principal diagnosis: Reason for follow-up is bilateral lower extremity wound and cellulitis Patient is a 84-year-old male with past medical history significant for atrial fibrillation hypertension hyperlipidemia CVA TIA COPD heart failure did have an AICD and apparently scheduled for change of the generator presenting to the hospital after the patient had a fall and did have multiple laceration to the lower extremity and concerning for cellulitis. On today's evaluation that is 04/04/2024, the patient continues to be afebrile, the patient is on 4 L nasal oxygen and breathing comfortably however seem to have problems last night with increasing shortness of breath and hypoxemia requiring more supplemental oxygen, the Pt denies having any chest pain or cough, the patient denies having any abdominal pain no vomiting or any diarrhea denies pain to the lower extremity. Patient white count slightly up to 14.6 today, creatinine 0.95 troponins were negative Objective - Vital Signs Vital signs: Vital Signs Temp 98.3 F 04/04/24 09:15 Pulse 70 04/04/24 13:53 Resp 22 04/04/24 11:08 BP 145/61 04/04/24 11:08 Pulse Ox 98 04/04/24 11:08 FiO2 Intake & Output 04/03/24 04/04/24 04/04/24 18:59 06:59 18:59 Intake Total 838 540 Output Total 650 750 500 Balance 188 -210 -500 Intake: Oral 838 540 Output: Urine 650 750 500 Straight 550 Other: Voiding Method Urinal Urinal Urinal # Voids 2 - Exam GENERAL DESCRIPTION: An elderly male lying in bed in no distress RESPIRATORY SYSTEM: Unlabored breathing , decreased breath sounds at bases HEART: S1 S2 regular rate and rhythm , ABDOMEN: Soft , no tenderness EXTREMITIES: Bilateral legs wound currently dressed redness decreased - Labs CBC & Chem 7: 04/04/24 04:55 04/04/24 04:55 Labs: Abnormal Lab Results - Last 24 Hours (Table) 04/04/24 04/04/24 Range/Units 04:55 04:55 WBC 14.6 H (3.8-10.6) k/uL RBC 3.78 L (4.30-5.90) m/uL Hgb 10.1 L (13.0-17.5) gm/dL Hct 33.8 L (39.0-53.0) % MCHC 30.0 L (31.0-37.0) g/dL Plt Count 114 L (150-450) k/uL Neutrophils # 13.0 H (1.3-7.7) k/uL Lymphocytes # 0.4 L (1.0-4.8) k/uL BUN 39 H (9-20) mg/dL Glucose 201 H (74-99) mg/dL Calcium 8.1 L (8.4-10.2) mg/dL Microbiology - Last 24 Hours (Table) 03/30/24 14:00 Gram Stain - Final Leg - Left Wound Culture - Final Leclericia adecarboxylata 03/30/24 14:00 Anaerobic Culture - Final Leg - Left Assessment and Plan (1) Bilateral leg ulcer Current Visit: Yes Status: Acute Code(s): L97.919 - NON-PRS CHRONIC ULC UNSP PRT OF R LOW LEG W UNSP SEVERITY; L97.929 - NON-PRS CHRONIC ULC UNSP PRT OF L LOW LEG W UNSP SEVERITY SNOMED Code(s): 07679096 (2) Bilateral lower leg cellulitis Current Visit: Yes Status: Acute Code(s): L03.116 - CELLULITIS OF LEFT LOWER LIMB; L03.115 - CELLULITIS OF RIGHT LOWER LIMB SNOMED Code(s): 209650436 Plan: 1patient with a bilateral lower extremity laceration and did have evidence of cellulitis likely from gram-positive skin rachelle gram-negative infection less likely but not excluded patient local culture did grow gram-negative 2local wound care to the wound with slough tissue to apply Astridney Metzger of the wound which has been we will apply Aquacel silver dressing and will benefit from Sergio wrap from just above the toe to below the knee 3continue with the cefepime while inpatient and monitor clinical course closely Dictation was produced using [employer] dictation software. please excuse any grammatical, word or spelling errors. Time with Patient: Less than 30
[2024-04-04] MEDS: SYMBICORT 160-4.5 MCG INHALER INHALATION SCH (21:28)
[2024-04-05] MEDS: HALOPERIDOL LACTATE 5 MG/ML 1 ML VIAL IM STA (01:29)
--- NOTE | 2024-04-05 10:09 | P.PN ---
Subjective Progress Note Date: 04/05/24 Principal diagnosis: Shortness of breath. Pulmonary consult dated April 03, 2024. 84-year-old male who was seen in the emergency department, on March 28. The patient apparently had an altered mental status, having fallen, while being on blood thinners. The patient was admitted to the hospital, and we were asked to see the patient just today, for shortness of breath. Apparently his primary care physician ordered some breathing treatments, and steroids, and today he is feeling much better. The patient is on Trelegy at home, although he states that he does not have a lung issue. He is a lifelong non-smoker. He was on 3 L of oxygen. His complaints yesterday and last night included shortness of breath, coughing, and wheezing. He is not receiving any IV fluids. He has a history of atrial fibrillation, heart failure, CVA, hyperlipidemia, hypertension, osteoarthritis, pneumonia, and sleep apnea syndrome. He does use CPAP for his sleep apnea syndrome. He also has a history of skin cancer, and pneumonia. He does have also have a history of previous AICD placement, and cardiac valve replacement, as well as heart catheterization, among other procedures. The pat ient appears not to be in any distress. There is no conversational dyspnea or audible wheezing. He admits to feeling much better. Current labs include a white count of 8.9, hemoglobin 10.2, hematocrit 35.7, and platelet count 172,000. Sodium 143, potassium 3.8, chlorides 110, CO2 29, BUN 20, creatinine 0.96. Glucose is 124. Calcium 7.9. Troponin was 0.025. Chest x-ray from March 28, shows evidence of cardiomegaly, with pulmonary vascular congestion. Progress note dated April 04, 2024. 84-year-old male initially seen in consultation yesterday. Please see note above. The patient apparently came to the emergency department back on March 28. He came in having fallen at home, with altered mental status. Currently, the patient is doing relatively well. He continues on oxygen, 4 L. No IV fluids. He continues on cefepime, and prednisone. Will add some Symbicort as well. The patient was apparently having some additional breathing issues last night, and I asked them to provide him with some additional breathing treatments. Today he is doing well, even off oxygen. Current labs include a white count of 14.6, hemoglobin 10.1, hematocrit 33.8, and platelet count of 114,000. Sodium 140, potassium 4.2, chlorides 107, CO2 25, anion gap 8, BUN 39, and creatinine 0.95. Glucose is 201. Progress note dated April 05, 2024. The patient is seen today in room 368. He is currently on 3 L of oxygen. No IV fluids. He remains on cefepime. According to the nurse, he had a relatively uneventful night. The patient is sitting in a chair, next to his hospital bed. No new labs today. Left leg wound culture shows Leclericia spp. And the patient continues on cefepime. Objective - Vital Signs Vital signs: Vital Signs Temp 97.9 F 04/05/24 08:14 Pulse 68 04/05/24 08:25 Resp 20 04/05/24 08:14 BP 154/57 04/05/24 08:14 Pulse Ox 97 04/05/24 08:14 FiO2 Intake & Output 04/04/24 04/05/24 04/05/24 18:59 06:59 18:59 Intake Total 960 110 Output Total 600 500 Balance 360 -500 110 Intake: Oral 960 110 Output: Urine 600 500 Other: Voiding Method Urinal Urinal Urinal - Exam No acute distress, oriented 3. Currently on 3 L. No respiratory distress. No conversational dyspnea. No audible wheezing. HEENT examination is grossly unremarkable. Mucous membranes are moist. No oral lesions. Neck supple. Full range of motion. No adenopathy thyromegaly or neck vein distention. Cardiovascular examination reveals regular rhythm rate. S1-S2 normal. No S3 or S4. No discernible murmur noted. Heart rate 68 bpm. Heart sounds distant. Lungs reveal mostly clear breath sounds. Minimal wheezes. No rhonchi or crackles. Breath sounds equal bilaterally. 3 L saturation is 97 %. Abdomen is, but soft, with bowel sounds. No masses or tenderness. Extremities reveal slight edema. No cyanosis or clubbing. Skin is without rash or lesion. Neurologic examination is brief but nonfocal. - Labs CBC & Chem 7: 04/04/24 04:55 04/04/24 04:55 Labs: Microbiology - Last 24 Hours (Table) 03/30/24 12:57 Blood Culture - Final Blood Assessment and Plan Assessment: Shortness of breath, cough, and wheezing, all much improved, possibly related to mild fluid overload. The patient appears not to have a pulmonary diagnosis, and states he is a lifelong non-smoker. He denies asthma. History of atrial fibrillation. History of CHF. Aortic stenosis, S/P transcatheter aortic valve replacement. History of CVA/TIA. History of hyperlipidemia. History of hypertension. History of osteoarthritis. History of pneumonia. History of obstructive sleep apnea syndrome, on CPAP. Status post AICD placement. Obesity. Plan: Plan dated April 03, 2024. The patient is seen today in room 368. He is interviewed, and examined. Labs, x-rays, and medications are reviewed. The patient is feeling much better. He states that whoever gave him the breathing treatments and steroids yesterday, made a big difference in terms of how he was feeling. Currently, he is not having any pulmonary complaints whatsoever. The patient is a lifelong non- smoker. For unclear reasons, the patient was on Trelegy at home. Currently, he is on cefepime, and updrafts. The patient did receive steroids yesterday. In addition, he is on Solu-Medrol, 60 mg every 6 hours. That will be changed to prednisone 30 mg a day. Plan dated April 04, 2024. The patient is seen in room 368. He apparently became short of breath last night. The patient received some additional breathing treatments. Today, I add some Symbicort 160/4.5, to his regimen. He will use it twice a day. The patient is a lifelong non-smoker. He denies a history of any lung issues including COPD, emphysema, chronic bronchitis, and asthma. The patient may be having cardiac asthma, from fluid overload. We will continue to follow make recommendations. Prognosis is guarded. Currently, he is sitting in the chair next to the bed. He is feeling well. Plan dated April 05, 2024. The patient appears to be doing reasonably well. He is on 3 L of oxygen. Saturations are 97%. The patient is not having any active difficulty with his breathing. He denies any chest pain or chest discomfort. He is sitting up in a chair, next to his hospital bed. Labs, x-rays, and medications are reviewed. The patient is a lifelong non-smoker. He denies all pulmonary diagnoses including COPD, emphysema, bronchitis, asthma, etc. We will continue to follow make recommendations along the way. The patient was on Trelegy, although it is not clear as to why he was given it. Time with Patient: Less than 30
--- NOTE | 2024-04-05 13:03 | P.PN ---
Subjective Progress Note Date: 04/05/24 Principal diagnosis: shortness of breath,with subsequent fall patient ended up having a Fraga catheter placed secondary to urinary retention Probable discharge tomorrow to subacute rehabilitation Patient is otherwise doing well with some mild wheezing O2 sats are within normal limits ; Objective - Vital Signs Vital signs: Vital Signs Temp 97.9 F 04/05/24 08:14 Pulse 68 04/05/24 11:40 Resp 24 04/05/24 11:26 BP 156/86 04/05/24 11:18 Pulse Ox 96 04/05/24 11:26 FiO2 Intake & Output 04/04/24 04/05/24 04/05/24 18:59 06:59 18:59 Intake Total 960 110 Output Total 600 500 450 Balance 360 -500 -340 Intake: Oral 960 110 Output: Urine 600 500 450 Other: Voiding Method Urinal Urinal Urinal - Exam General: [Patient awake, alert and oriented times 3. Patient in no acute distress.morbidly obese HEENT: [PERRL. EOMI. No pharyngeal erythema or exudate.] Neck: [No adenopathy.] Cardiac: [Heart regularly irregularin rate and rhythm. No S3. No S4. No clicks, rubs. No murmur.] Lungs: diminished breath sounds bilaterally Abdomen: [No mass. No organomegaly. Bowel sounds presnt and normoactive in all 4 quadrants.] Extremes: [No edema no cyanosis no claudication normal pulses] : normal male genitalia Musculoskeletal: [No joint erythema, edema or tenderness.] Skin: [No rash.] Neurologic: [No lateralizing deficits. CN II - XII grossly intact.] Lymphatic: [No adenopathy.] - Labs CBC & Chem 7: 04/04/24 04:55 04/04/24 04:55 Labs: Microbiology - Last 24 Hours (Table) 03/30/24 12:57 Blood Culture - Final Blood Assessment and Plan (1) Altered mental status Current Visit: Yes Status: Acute Code(s): R41.82 - ALTERED MENTAL STATUS, UNSPECIFIED SNOMED Code(s): 438435531 (2) Bilateral leg ulcer Current Visit: Yes Status: Acute Code(s): L97.919 - NON-PRS CHRONIC ULC UNSP PRT OF R LOW LEG W UNSP SEVERITY; L97.929 - NON-PRS CHRONIC ULC UNSP PRT OF L LOW LEG W UNSP SEVERITY SNOMED Code(s): 16450558 (3) Bilateral lower leg cellulitis Current Visit: Yes Status: Acute Code(s): L03.116 - CELLULITIS OF LEFT LOWER LIMB; L03.115 - CELLULITIS OF RIGHT LOWER LIMB SNOMED Code(s): 409344993 (4) Fall Current Visit: Yes Status: Acute Code(s): W19.XXXA - UNSPECIFIED FALL, INITIAL ENCOUNTER SNOMED Code(s): 7921516 (5) Syncope Current Visit: Yes Status: Acute Code(s): R55 - SYNCOPE AND COLLAPSE SNOMED Code(s): 357019259 (6) Bacteremia Current Visit: No Status: Acute Code(s): R78.81 - BACTEREMIA SNOMED Code(s): 6466894 (7) Congestive heart failure Current Visit: No Status: Acute Code(s): I50.9 - HEART FAILURE, UNSPECIFIED SNOMED Code(s): 45040748 Plan: rehab placement pending Time with Patient: Greater than 30
[2024-04-05] MEDS: LIDOCAINE 2% URO-JET JELLY 5 ML KIT URETHRAL ONE (13:46)
[2024-04-05 15:56] LABS: HCT 34.1 % (39.0-53.0); HGB 9.9 gm/dL (13.0-17.5); Hypochromasia Marked; MCH 25.8 pg (25.0-35.0); MCHC 29.1 g/dL (31.0-37.0); MCV 88.6 fL (80.0-100.0); Mean Platelet Volume 9.9; Platelet Count 145 k/uL (150-450); RBC 3.85 m/uL (4.30-5.90); RDW 15.2 % (11.5-15.5); WBC 14.7 k/uL (3.8-10.6)
--- NOTE | 2024-04-05 21:40 | P.GSCN ---
History of Present Illness Consult date: 04/05/24 Reason for Consult: Urinary retention, hematuria Requesting physician: Ramy Rojas Jr History of present illness: The patient is an 84-year-old white male admitted March 28, 2024. He was working in his shed, fell, then crawled approximately 75 feet prior to being found. He has multiple medical problems, including congestive heart failure and atrial fibrillation. Arrangements are being made for him to be transferred to a rehab center, but he has developed urinary retention. He was straight catheterized twice prior to insertion of a Fraga catheter earlier today, with return of 550 cc. The patient developed hematuria following Fraga catheter insertion, which is improving. There is no report of hematuria prior to Fraga catheter insertion. The patient is a vague historian but reports an unremarkable urolog ic history. He states that his urinary stream is normally strong, and that he voids without difficulty. He denies any prior history of UTIs, BPH, or urolithiasis. Review of Systems - Cardiovascular Reports edema, Reports high blood pressure, Reports shortness of breath - Genitourinary Reports as per HPI Past Medical History Past Medical History: Atrial Fibrillation, Cancer, Heart Failure, COPD, CVA/TIA, Hyperlipidemia, Hypertension, Osteoarthritis (OA), Pneumonia, Sleep Substitute Teacher ea/CPAP/BIPAP Additional Past Medical History / Comment(s): recent echo, SOB w/exertion, uses CPAP, hx. skin cancer, hx. stroke 2006-no residual effects, pneumonia in 2019, see Dr Moseley [facility] & [facility], cellulitis History of Any Multi-Drug Resistant Organisms: MRSA Year Discovered:: 05/13/19 MDRO Source:: BACK Past Surgical History: AICD, Cardiac Valve Replacement, Heart Catheterization, Hernia Repair, Orthopedic Surgery Additional Past Surgical History / Comment(s): 2nd finger right hand reattached, TAVR 2019 Past Anesthesia/Blood Transfusion Reactions: No Reported Reaction Type of Cardiac Device: AICD Device Placement Date:: 2014 Past Psychological History: No Psychological Hx Reported Smoking Status: Never smoker Past Alcohol Use History: None Reported Past Drug Use History: None Reported - Past Family History Brother(s) Family Medical History: Cancer Medications and Allergies Home Medications Medication Instructions Recorded Confirmed Type Metoprolol Succinate (ER) [Toprol 50 mg PO DAILY 08/12/19 03/28/24 History XL] Furosemide [Lasix] 40 mg PO BID 03/30/22 03/28/24 History Fluticasone/Umeclidin/Vilanter 1 puff INHALATION RT-DAILY 03/26/24 03/28/24 History [Trelegy Ellipta 100-62.5-25] Rosuvastatin [Crestor] 20 mg PO HS 03/26/24 03/28/24 History Apixaban [Eliquis] 5 mg PO BID 03/28/24 03/28/24 History Ferrous Sulfate [Iron (65 MG 325 mg PO DAILY 03/28/24 03/28/24 History Elemental)] Folic Acid 1 mg PO DAILY tab 04/03/24 Rx Gabapentin [Neurontin] 300 mg PO HS #3 cap 04/03/24 Rx Ipratropium-Albuterol Nebulize 3 ml INHALATION Q4H PRN each 04/03/24 Rx [Duoneb 0.5 mg-3 mg/3 ml Soln] Ipratropium-Albuterol Nebulize 3 ml INHALATION RT-QID each 04/03/24 Rx [Duoneb 0.5 mg-3 mg/3 ml Soln] Ketorolac 0.5% Ophth Soln [Acular 1 drops BOTH EYES QID 7 Days #1 ml 04/03/24 Rx 0.5%] Nystatin 100,000 Unit/gm Powd 1 applic TOPICAL TID each 04/03/24 Rx [Mycostatin Powder] cefUROXime axetiL [Ceftin] 500 mg PO BID 10 Days #20 tab 04/03/24 Rx polyethylene glycoL 3350 [Miralax] 17 gm PO DAILY #30 packet 04/03/24 Rx predniSONE 10 mg PO DIRECTED #30 tab 04/03/24 Rx rOPINIRole HCL [Requip] 0.25 mg PO HS #3 tab 04/03/24 Rx Allergies Allergy/AdvReac Type Severity Reaction Status Date / Time aspirin Allergy Severe throat Verified 03/28/24 20:03 swelling Surgical - Exam Vital Signs Pulse Resp Pulse Ox 74 20 94 L 03/28/24 16:05 03/28/24 16:05 03/28/24 16:05 - General well developed, well nourished, no distress - Respiratory normal respiratory effort - Abdomen Abdomen: soft, non tender, no guarding, no rigid, no rebound - Genitourinary The Fraga catheter is in place. There is evidence of penoscrotal edema. The testes are normal. - Psychiatric oriented to time, oriented to person, oriented to place, speech is normal, memory intact Results - Labs 04/05/24 15:36 04/04/24 04:55 Abnormal Lab Results - Last 24 Hours (Table) 04/04/24 04/05/24 Range/Units 04:55 15:36 WBC 14.7 H (3.8-10.6) k/uL RBC 3.85 L (4.30-5.90) m/uL Hgb 9.9 L (13.0-17.5) gm/dL Hct 34.1 L (39.0-53.0) % MCHC 29.1 L (31.0-37.0) g/dL Plt Count 145 L (150-450) k/uL Procalcitonin 0.42 H (0.02-0.09) ng/mL Microbiology - Last 24 Hours (Table) 03/30/24 12:57 Blood Culture - Final Blood Assessment and Plan (1) Retention of urine, unspecified Current Visit: Yes Status: Acute Code(s): R33.9 - RETENTION OF URINE, UNSPECIFIED SNOMED Code(s): 847228731 Plan: Tamsulosin has been ordered. Transfer to a subacute rehabilitation facility tomorrow is anticipated. The catheter should remain in place for at least 48 hours, so the patient will likely need to be transferred with the catheter. It would be reasonable for the catheter to be removed in several days for a voiding trial. Time with Patient: Greater than 30
--- NOTE | 2024-04-05 22:51 | P.PN ---
Subjective Progress Note Date: 04/05/24 Principal diagnosis: Reason for follow-up is bilateral lower extremity wound and cellulitis Patient is a 84-year-old male with past medical history significant for atrial fibrillation hypertension hyperlipidemia CVA TIA COPD heart failure did have an AICD and apparently scheduled for change of the generator presenting to the hospital after the patient had a fall and did have multiple laceration to the lower extremity and concerning for cellulitis. On today's evaluation that is 04/05/2024, Patient is afebrile patient is currently on 2 L, oxygen and denies having any worsening shortness of breath, the patient denies any chest pain or cough, the patient denies any nausea vomiting did not have any abdominal pain and no diarrhea, denies any worsening pain to lower extremity. No new lab has been obtained today Objective - Vital Signs Vital signs: Vital Signs Temp 97.8 F 04/05/24 15:00 Pulse 67 04/05/24 15:00 Resp 26 H 04/05/24 15:00 BP 156/90 04/05/24 15:00 Pulse Ox 98 04/05/24 15:00 FiO2 Intake & Output 04/04/24 04/05/24 04/05/24 18:59 06:59 18:59 Intake Total 960 220 Output Total 600 500 450 Balance 360 -500 -230 Intake: Oral 960 220 Output: Urine 600 500 450 Other: Voiding Method Urinal Urinal Indwelling Catheter - Exam GENERAL DESCRIPTION: An elderly male lying in bed in no distress RESPIRATORY SYSTEM: Unlabored breathing , decreased breath sounds at bases HEART: S1 S2 regular rate and rhythm , ABDOMEN: Soft , no tenderness EXTREMITIES: Bilateral legs wound currently dressed redness decreased - Labs CBC & Chem 7: 04/04/24 04:55 04/04/24 04:55 Labs: Abnormal Lab Results - Last 24 Hours (Table) 04/04/24 Range/Units 04:55 Procalcitonin 0.42 H (0.02-0.09) ng/mL Microbiology - Last 24 Hours (Table) 03/30/24 12:57 Blood Culture - Final Blood Assessment and Plan (1) Bilateral leg ulcer Current Visit: Yes Status: Acute Code(s): L97.919 - NON-PRS CHRONIC ULC UNSP PRT OF R LOW LEG W UNSP SEVERITY; L97.929 - NON-PRS CHRONIC ULC UNSP PRT OF L LOW LEG W UNSP SEVERITY SNOMED Code(s): 36421513 (2) Bilateral lower leg cellulitis Current Visit: Yes Status: Acute Code(s): L03.116 - CELLULITIS OF LEFT LOWER LIMB; L03.115 - CELLULITIS OF RIGHT LOWER LIMB SNOMED Code(s): 757304629 Plan: 1patient with a bilateral lower extremity laceration and did have evidence of cellulitis likely from gram-positive skin rachelle gram-negative infection less likely but not excluded patient local culture did grow gram-negative 2local wound care to the wound with slough tissue to apply Medihoney Metzger of the wound which has been we will apply Aquacel silver dressing and will benefit from Sergio wrap from just above the toe to below the knee 3patient did have improvement in lower extremity cellulitis, will continue with the cefepime and transition to oral Ceftin on discharge Dictation was produced using [email or web address] dictation software. please excuse any grammatical, word or spelling errors. Time with Patient: Less than 30
[2024-04-06 09:31] VITALS: BMI 44.4
[2024-04-06] MEDS: TAMSULOSIN 0.4 MG CAP.ER.24H PO SCH (09:58)
[2024-04-06 11:34] LABS: Glucose,Whole Blood 170 mg/dL (70-110)
--- NOTE | 2024-04-06 21:57 | P.PN ---
Subjective Progress Note Date: 04/06/24 84-year-old male who was seen in the emergency department, on March 28. The patient apparently had an altered mental status, having fallen, while being on blood thinners. The patient was admitted to the hospital, and we were asked to see the patient just today, for shortness of breath. Apparently his primary care physician ordered some breathing treatments, and steroids, and today he is feeling much better. The patient is on Trelegy at home, although he states that he does not have a lung issue. He is a lifelong non-smoker. He was on 3 L of oxygen. His complaints yesterday and last night included shortness of breath, coughing, and wheezing. He is not receiving any IV fluids. He has a history of atrial fibrillation, heart failure, CVA, hyperlipidemia, hypertension, osteoarthritis, pneumonia, and sleep apnea syndrome. He does use CPAP for his sleep apnea syndrome. He also has a history of skin cancer, and pneumonia. He does have also have a history of previous AICD placement, and cardiac valve replacement, as well as heart catheterization, among other procedures. The patient appears not to be in any distress. There is no conversational dyspnea or audible wheezing. He admits to feeling much better. Current labs include a white count of 8.9, hemoglobin 10.2, hematocrit 35.7, and platelet count 172,000. Sodium 143, potassium 3.8, chlorides 110, CO2 29, BUN 20, creatinine 0.96. Glucose is 124. Calcium 7.9. Troponin was 0.025. Chest x-ray from March 28, shows evidence of cardiomegaly, with pulmonary vascular congestion. Progress note dated April 04, 2024. 84-year-old male initially seen in consultation yesterday. Please see note above. The patient apparently came to the emergency department back on March 28. He came in having fallen at home, with altered mental status. Currently, the patient is doing relatively well. He continues on oxygen, 4 L. No IV fluids. He continues on cefepime, and prednisone. Will add some Symbicort as well. The patient was apparently having some additional breathing issues last night, and I asked them to provide him with some additional breathing treatments. Today he is doing well, even off oxygen. Current labs include a white count of 14.6, hemoglobin 10.1, hematocrit 33.8, and platelet count of 114,000. Sodium 140, potassium 4.2, chlorides 107, CO2 25, anion gap 8, BUN 39, and creatinine 0.95. Glucose is 201. Progress note dated April 05, 2024. The patient is seen today in room 368. He is currently on 3 L of oxygen. No IV fluids. He remains on cefepime. According to the nurse, he had a relatively uneventful night. The patient is sitting in a chair, next to his hospital bed. No new labs today. Left leg wound culture shows Leclericia spp. And the patient continues on cefepime. On 04/06/2024, the patient is being seen for a follow-up. 84-year-old male patient who was initially admitted to the hospital because of altered mentation, fall and shortness of breath. The patient has history of CVA, A-fib, congestive heart failure hypertension hyperlipidemia and obstructive sleep apnea and the patient does not tolerate any CPAP therapy. He has also previous AICD placement. The patient was supposed to have a change of generator of the AICD and he had a fall and he had multiple lacerations to the lower extremities and there was a concern also of superimposed cellulitis. As such, the patient is admitted and the patient is also being seen by various other consultants. Furthermore, urology has been involved in his care yesterday for issues related to urinary retention. The patient was given a Fraga catheter and after insertion immediately 550 cc of urine output was obtained. He was having some hematuria post Fraga catheter insertion which essentially improved. The white cell count is 14.7 with a hemoglobin 9.9 and platelet count of 145. No other labs available from today. Remains on anticoagulation with Eliquis. Remains on IV cefepime as an empiric antibiotic coverage and ID is on the case. He is currently on 3 L O2 nasal cannula with a pulse ox of 96 to 97%. Objective - Vital Signs Vital signs: Vital Signs Temp 98.1 F 04/06/24 14:00 Pulse 70 04/06/24 14:00 Resp 21 04/06/24 14:00 BP 163/60 04/06/24 14:00 Pulse Ox 94 L 04/06/24 14:00 FiO2 Intake & Output 04/05/24 04/06/24 04/06/24 18:59 06:59 18:59 Intake Total 330 Output Total 1650 1450 Balance -1320 -1450 Weight 140.4 kg 140.4 kg Intake: Oral 330 Output: Urine 1650 1450 Straight 700 Other: Voiding Method Indwelling Catheter Indwelling Catheter Indwelling Catheter - Exam No acute distress, oriented 3. Currently on 3 L. No respiratory distress. No conversational dyspnea. No audible wheezing. Head exam was generally normal. There was no scleral icterus or corneal arcus. Mucous membranes were moist. HEENT examination is grossly unremarkable. Mucous membranes are moist. No oral lesions. Neck supple. Full range of motion. No adenopathy thyromegaly or neck vein distention. Cardiovascular examination reveals regular rhythm rate. S1-S2 normal. No S3 or S4. No discernible murmur noted. Heart sounds distant. Lungs reveal mostly clear breath sounds. Minimal wheezes. No rhonchi or crackles. Breath sounds equal bilaterally. Abdomen is, but soft, with bowel sounds. No masses or tenderness. Extremities reveal slight edema. No cyanosis or clubbing. Skin is without rash or lesion. Neurologic examination is brief but nonfocal. - Labs CBC & Chem 7: 04/05/24 15:36 04/04/24 04:55 Labs: Abnormal Lab Results - Last 24 Hours (Table) 04/05/24 04/06/24 Range/Units 15:36 11:32 WBC 14.7 H (3.8-10.6) k/uL RBC 3.85 L (4.30-5.90) m/uL Hgb 9.9 L (13.0-17.5) gm/dL Hct 34.1 L (39.0-53.0) % MCHC 29.1 L (31.0-37.0) g/dL Plt Count 145 L (150-450) k/uL POC Glucose (mg/dL) 170 H (70-110) mg/dL Assessment and Plan Plan: Acute hypoxic respiratory failure currently on 3 L of oxygen by nasal cannula. Chest x-ray from 04/02/2024 was reviewed and it shows cardiomegaly and mild pulm vascular congestion. No consolidation. No airspace disease. Echocardiogram on 03/30/2024 showed preserved LV function with an EF of around 55%. No obvious wall motion abnormalities. Mild concentric LVH. Bioprosthetic aortic valve with a mean gradient of 18 mmHg. No regurgitation. Shortness of breath, cough, and wheezing, all much improved, possibly related to mild fluid overload. History of atrial fibrillation. The patient is maintained on long-term anticoagulation and remains on Eliquis History of CHF. Patient has a preserved LV function based on the most recent echocardiogram with a normal ejection fraction. Aortic stenosis, S/P transcatheter aortic valve replacement. History of CVA/TIA. History of hyperlipidemia. History of hypertension. History of osteoarthritis. History of pneumonia. History of obstructive sleep apnea syndrome, on CPAP. Status post AICD placement. Obesity. Urine retention post Fraga catheter insertion Plan: He is on 3 L of oxygen. Saturations are 97%. keep Fraga catheter in place Monitor urine output and continue Lasix 40 mg twice a day Continue anticoagulation with Eliquis Wean down FiO2 as tolerated to maintain saturation above 90% Repeat chest x-ray Will follow
--- NOTE | 2024-04-07 12:08 | P.CONS ---
History of Present Illness - Reason for Consult Consult date: 04/07/24 wound care - History of Present Illness This is an 84-year-old patient being seen by the wound care center on [address]. for nonhealing ulcerations to bilateral knees and right anterior lower extremity. Patient was unable to state how long the ulcerations have been there. They have been utilizing absorptive silver to the site. Ulcerations have significant amount of serous drainage. Minimal granulation and slough and nonviable tissue present to the wound bed. Wound edges are attached to the wound base there is no tunneling or undermining noted. Patient's past medical history significant for atrial fibrillation, heart failure, COPD, CVA, hyperlipidemia, hypertension, sleep apnea. He is a lifelong non-smoker. Review Of Systems: Constitutional: No fever, no chills, no night sweats. No weight change. No weakness, fatigue or lethargy. No daytime sleepiness. Integumentary:reports wounds, no lesions. No rash or pruritus. No unusual bruising. No change in hair or nails. Physical exam: General Appearance: Alert, cooperative, no distress, appears stated age. Skin: See HPI all other Skin color, texture, tugor normal, no rashes or lesions. Neurologic: Alert oriented x3 Assessment: 1. Nonhealing ulceration with fat layer exposure right knee 2. Nonhealing ulceration with fat layer exposure other site of right lower extremity 3. Nonhealing ulceration with fat layer exposure left knee Plan: 1. Apply honey gel and bordered foam to the site change Saturday. Patient would benefit from advanced wound care and wound care setting. Will be happy to see him upon discharge. Thank you for the consultation any questions please contact the wound care center DNP note has been reviewed and discussed with Dr. Campbell and the impression and plan of care has been directed as dictated. Past Medical History Past Medical History: Atrial Fibrillation, Cancer, Heart Failure, COPD, CVA/TIA, Hyperlipidemia, Hypertension, Osteoarthritis (OA), Pneumonia, Sleep Apnea/CPAP/BIPAP Additional Past Medical History / Comment(s): recent echo, SOB w/exertion, uses CPAP, hx. skin cancer, hx. stroke 2006-no residual effects, pneumonia in 2019, see Dr Moseley [facility], cellulitis History of Any Multi-Drug Resistant Organisms: MRSA Year Discovered:: 05/13/19 MDRO Source:: BACK Past Surgical History: AICD, Cardiac Valve Replacement, Heart Catheterization, Hernia Repair, Orthopedic Surgery Additional Past Surgical History / Comment(s): 2nd finger right hand reattached, TAVR 2019 Past Anesthesia/Blood Transfusion Reactions: No Reported Reaction Type of Cardiac Device: AICD Device Placement Date:: 2014 Past Psychological History: No Psychological Hx Reported Smoking Status: Never smoker Past Alcohol Use History: None Reported Past Drug Use History: None Reported - Past Family History Brother(s) Family Medical History: Cancer Medications and Allergies Home Medications Medication Instructions Recorded Confirmed Type Metoprolol Succinate (ER) [Toprol 50 mg PO DAILY 08/12/19 03/28/24 History XL] Furosemide [Lasix] 40 mg PO BID 03/30/22 03/28/24 History Fluticasone/Umeclidin/Vilanter 1 puff INHALATION RT-DAILY 03/26/24 03/28/24 History [Trelegy Ellipta 100-62.5-25] Rosuvastatin [Crestor] 20 mg PO HS 03/26/24 03/28/24 History Apixaban [Eliquis] 5 mg PO BID 03/28/24 03/28/24 History Ferrous Sulfate [Iron (65 MG 325 mg PO DAILY 03/28/24 03/28/24 History Elemental)] Folic Acid 1 mg PO DAILY tab 04/03/24 Rx Gabapentin [Neurontin] 300 mg PO HS #3 cap 04/03/24 Rx Ipratropium-Albuterol Nebulize 3 ml INHALATION Q4H PRN each 04/03/24 Rx [Duoneb 0.5 mg-3 mg/3 ml Soln] Ipratropium-Albuterol Nebulize 3 ml INHALATION RT-QID each 04/03/24 Rx [Duoneb 0.5 mg-3 mg/3 ml Soln] Ketorolac 0.5% Ophth Soln [Acular 1 drops BOTH EYES QID 7 Days #1 ml 04/03/24 Rx 0.5%] Nystatin 100,000 Unit/gm Powd 1 applic TOPICAL TID each 04/03/24 Rx [Mycostatin Powder] cefUROXime axetiL [Ceftin] 500 mg PO BID 10 Days #20 tab 04/03/24 Rx polyethylene glycoL 3350 [Miralax] 17 gm PO DAILY #30 packet 04/03/24 Rx predniSONE 10 mg PO DIRECTED #30 tab 04/03/24 Rx rOPINIRole HCL [Requip] 0.25 mg PO HS #3 tab 04/03/24 Rx Tamsulosin [Flomax] 0.4 mg PO [id number] cap 04/06/24 Rx traMADol HCl [Ultram] 50 mg PO TID PRN #9 tab 04/06/24 Rx Allergies Allergy/AdvReac Type Severity Reaction Status Date / Time aspirin Allergy Severe throat Verified 03/28/24 20:03 swelling Physical Exam Vitals: Vital Signs Temp Pulse Pulse Resp BP Pulse Ox 04/07/24 09:24 80 04/07/24 09:08 82 98 04/07/24 07:57 97.2 F L 69 19 115/69 97 04/07/24 00:39 97.4 F L 70 19 117/64 98 04/06/24 22:11 72 04/06/24 22:01 68 04/06/24 19:20 97.6 F 69 16 115/72 99 04/06/24 15:13 68 04/06/24 15:03 68 04/06/24 14:00 98.1 F 70 21 163/60 94 L 04/06/24 12:20 72 04/06/24 12:07 68 Intake and Output 04/06/24 04/07/24 04/07/24 22:59 06:59 14:59 Output Total 3025 Balance -3025 Output: Urine 3025 Other: Voiding Method Indwelling Catheter Indwelling Catheter Weight 132.5 kg Results CBC & Chem 7: 04/05/24 15:36 04/04/24 04:55 Labs: Microbiology - Last 24 Hours (Table) 04/05/24 16:45 Urine Culture - Final Urine,Catheterized Assessment and Plan (1) Non-pressure chronic ulcer of other part of left lower leg with fat layer exposed Current Visit: Yes Status: Acute Code(s): L97.822 - NON-PRS CHRONIC ULCER OTH PRT L LOW LEG W FAT LAYER EXPOSED SNOMED Code(s): 79808448310694314 (2) Non-pressure chronic ulcer of other part of right lower leg with fat layer exposed Current Visit: Yes Status: Acute Code(s): L97.812 - NON-PRS CHRONIC ULCER OTH PRT R LOW LEG W FAT LAYER EXPOSED SNOMED Code(s): 76599782985079414
[2024-04-07 14:19] VITALS: BP 126/77; PULSE 69; RESP 18; TEMP 97.8
--- NOTE | 2024-04-07 15:15 | P.PN ---
Subjective Progress Note Date: 04/07/24 84-year-old male who was seen in the emergency department, on March 28. The patient apparently had an altered mental status, having fallen, while being on blood thinners. The patient was admitted to the hospital, and we were asked to see the patient just today, for shortness of breath. Apparently his primary care physician ordered some breathing treatments, and steroids, and today he is feeling much better. The patient is on Trelegy at home, although he states that he does not have a lung issue. He is a lifelong non-smoker. He was on 3 L of oxygen. His complaints yesterday and last night included shortness of breath, coughing, and wheezing. He is not receiving any IV fluids. He has a history of atrial fibrillation, heart failure, CVA, hyperlipidemia, hypertension, osteoarthritis, pneumonia, and sleep apnea syndrome. He does use CPAP for his sleep apnea syndrome. He also has a history of skin cancer, and pneumonia. He does have also have a history of previous AICD placement, and cardiac valve replacement, as well as heart catheterization, among other procedures. The patient appears not to be in any distress. There is no conversational dyspnea or audible wheezing. He admits to feeling much better. Current labs include a white count of 8.9, hemoglobin 10.2, hematocrit 35.7, and platelet count 172,000. Sodium 143, potassium 3.8, chlorides 110, CO2 29, BUN 20, creatinine 0.96. Glucose is 124. Calcium 7.9. Troponin was 0.025. Chest x-ray from March 28, shows evidence of cardiomegaly, with pulmonary vascular congestion. Progress note dated April 04, 2024. 84-year-old male initially seen in consultation yesterday. Please see note above. The patient apparently came to the emergency department back on March 28. He came in having fallen at home, with altered mental status. Currently, the patient is doing relatively well. He continues on oxygen, 4 L. No IV fluids. He continues on cefepime, and prednisone. Will add some Symbicort as well. The patient was apparently having some additional breathing issues last night, and I asked them to provide him with some additional breathing treatments. Today he is doing well, even off oxygen. Current labs include a white count of 14.6, hemoglobin 10.1, hematocrit 33.8, and platelet count of 114,000. Sodium 140, potassium 4.2, chlorides 107, CO2 25, anion gap 8, BUN 39, and creatinine 0.95. Glucose is 201. Progress note dated April 05, 2024. The patient is seen today in room 368. He is currently on 3 L of oxygen. No IV fluids. He remains on cefepime. According to the nurse, he had a relatively uneventful night. The patient is sitting in a chair, next to his hospital bed. No new labs today. Left leg wound culture shows Leclericia spp. And the patient continues on cefepime. On 04/06/2024, the patient is being seen for a follow-up. 84-year-old male patient who was initially admitted to the hospital because of altered mentation, fall and shortness of breath. The patient has history of CVA, A-fib, congestive heart failure hypertension hyperlipidemia and obstructive sleep apnea and the patient does not tolerate any CPAP therapy. He has also previous AICD placement. The patient was supposed to have a change of generator of the AICD and he had a fall and he had multiple lacerations to the lower extremities and there was a concern also of superimposed cellulitis. As such, the patient is admitted and the patient is also being seen by various other consultants. Furthermore, urology has been involved in his care yesterday for issues related to urinary retention. The patient was given a Fraga catheter and after insertion immediately 550 cc of urine output was obtained. He was having some hematuria post Fraga catheter insertion which essentially improved. The white cell count is 14.7 with a hemoglobin 9.9 and platelet count of 145. No other labs available from today. Remains on anticoagulation with Eliquis. Remains on IV cefepime as an empiric antibiotic coverage and ID is on the case. He is currently on 3 L O2 nasal cannula with a pulse ox of 96 to 97%. On today's evaluation of 04/07/2024, the patient is being seen for a follow-up. Patient remains on oxygen 3 L/min nasal cannula with a pulse ox of 98%. Denies having any significant shortness of breath. No specific complaints. Patient was seen by wound services regarding a nonpressure chronic ulcer of the left lower extremity and the recommendations were noted and appreciated. Otherwise, no other significant events. The patient is currently on [facility]. The patient is on anticoagulation with Eliquis. The patient is on Ceftin and completing a prednisone burst taper. Possible discharge today. Fraga catheter still in place. Objective - Vital Signs Vital signs: Vital Signs Temp 97.2 F L 04/07/24 07:57 Pulse 80 04/07/24 09:24 Resp 19 04/07/24 07:57 BP 115/69 04/07/24 07:57 Pulse Ox 98 04/07/24 09:08 FiO2 Intake & Output 04/06/24 04/07/24 04/07/24 18:59 06:59 18:59 Output Total 3025 Balance -3025 Weight 140.4 kg 132.5 kg Output: Urine 3025 Other: Voiding Method Indwelling Catheter Indwelling Catheter - Exam No acute distress, oriented 3. Currently on 3 L. No respiratory distress. No conversational dyspnea. No audible wheezing. Head exam was generally normal. There was no scleral icterus or corneal arcus. Mucous membranes were moist. HEENT examination is grossly unremarkable. Mucous membranes are moist. No oral lesions. Neck supple. Full range of motion. No adenopathy thyromegaly or neck vein di stention. Cardiovascular examination reveals regular rhythm rate. S1-S2 normal. No S3 or S4. No discernible murmur noted. Heart sounds distant. Lungs reveal mostly clear breath sounds. Minimal wheezes. No rhonchi or crackles. Breath sounds equal bilaterally. Abdomen is, but soft, with bowel sounds. No masses or tenderness. Extremities reveal slight edema. No cyanosis or clubbing. Skin is without rash or lesion. Neurologic examination is brief but nonfocal. - Labs CBC & Chem 7: 04/05/24 15:36 04/04/24 04:55 Labs: Abnormal Lab Results - Last 24 Hours (Table) 04/06/24 Range/Units 11:32 POC Glucose (mg/dL) 170 H (70-110) mg/dL Assessment and Plan Plan: Acute hypoxic respiratory failure currently on 3 L of oxygen by nasal cannula. Chest x-ray from 04/02/2024 was reviewed and it shows cardiomegaly and mild pulm vascular congestion. No consolidation. No airspace disease. Echocardiogram on 03/30/2024 showed preserved LV function with an EF of around 55%. No obvious wall motion abnormalities. Mild concentric LVH. Bioprosthetic aortic valve with a mean gradient of 18 mmHg. No regurgitation. Shortness of breath, cough, and wheezing, all much improved, possibly related to mild fluid overload. History of atrial fibrillation. The patient is maintained on long-term anticoagulation and remains on Eliquis History of CHF. Patient has a preserved LV function based on the most recent echocardiogram with a normal ejection fraction. Aortic stenosis, S/P transcatheter aortic valve replacement. History of CVA/TIA. History of hyperlipidemia. History of hypertension. History of osteoarthritis. History of pneumonia. History of obstructive sleep apnea syndrome, on CPAP. Status post AICD placement. Obesity. Urine retention post Fraga catheter insertion Limited hematuria, improving Plan: He is on 3 L of oxygen. Saturations are 97%. keep Fraga catheter in place Monitor urine output and continue Lasix 40 mg twice a day Continue anticoagulation with Eliquis Wean down FiO2 as tolerated to maintain saturation above 90% Fraga catheter is in place. Completed prednisone burst taper, continue nebulized treatments with [facility] [id number]. Input from wound e services have been appreciated
--- NOTE | 2024-04-07 15:29 | P.PN ---
Subjective Progress Note Date: 04/06/24 Principal diagnosis: Reason for follow-up is bilateral lower extremity wound and cellulitis Patient is a 84-year-old male with past medical history significant for atrial fibrillation hypertension hyperlipidemia CVA TIA COPD heart failure did have an AICD and apparently scheduled for change of the generator presenting to the hospital after the patient had a fall and did have multiple laceration to the lower extremity and concerning for cellulitis. On today's evaluation that is 04/06/2024, patient has been afebrile, patient is breathing comfortably and is currently on 3 L current oxygen patient denies having any significant cough no chest pain shortness of breath, patient denies nausea vomiting or diarrhea and no abdominal pain has been complaining of mostly about the Fraga catheter denies pain to the lower extremity. No new lab has been obtained today Objective - Vital Signs Vital signs: Vital Signs Temp 98.1 F 04/06/24 14:00 Pulse 68 04/06/24 15:13 Resp 21 04/06/24 14:00 BP 163/60 04/06/24 14:00 Pulse Ox 94 L 04/06/24 14:00 FiO2 Intake & Output 04/05/24 04/06/24 04/06/24 18:59 06:59 18:59 Intake Total 330 Output Total 1650 1450 Balance -1320 -1450 Weight 140.4 kg 140.4 kg Intake: Oral 330 Output: Urine 1650 1450 Straight 700 Other: Voiding Method Indwelling Catheter Indwelling Catheter Indwelling Catheter - Exam GENERAL DESCRIPTION: An elderly male lying in bed in no distress RESPIRATORY SYSTEM: Unlabored breathing , decreased breath sounds at bases HEART: S1 S2 regular rate and rhythm , ABDOMEN: Soft , no tenderness EXTREMITIES: Bilateral legs wound currently dressed redness decreased - Labs CBC & Chem 7: 04/05/24 15:36 04/04/24 04:55 Labs: Abnormal Lab Results - Last 24 Hours (Table) 04/06/24 Range/Units 11:32 POC Glucose (mg/dL) 170 H (70-110) mg/dL Assessment and Plan (1) Bilateral leg ulcer Status: Acute Code(s): L97.919 - NON-PRS CHRONIC ULC UNSP PRT OF R LOW LEG W UNSP SEVERITY; L97.929 - NON-PRS CHRONIC ULC UNSP PRT OF L LOW LEG W UNSP SEVERITY SNOMED Code(s): 53206085 (2) Bilateral lower leg cellulitis Status: Acute Code(s): L03.116 - CELLULITIS OF LEFT LOWER LIMB; L03.115 - CELLULITIS OF RIGHT LOWER LIMB SNOMED Code(s): 498596666 Plan: 1patient with a bilateral lower extremity laceration and did have evidence of cellulitis likely from gram-positive skin rachelle gram-negative infection less likely but not excluded patient local culture did grow gram-negative 2local wound care to the wound with slough tissue to apply Medihoney Metzger of the wound which has been we will apply Aquacel silver dressing and will benefit from Sergio wrap from just above the toe to below the knee 3patient did have improvement in lower extremity cellulitis, continue with the cefepime while inpatient Dictation was produced using [employer] dictation software. please excuse any grammatical, word or spelling errors. Time with Patient: Less than 30
--- NOTE | 2024-04-07 15:29 | P.PN ---
Subjective Progress Note Date: 04/07/24 Principal diagnosis: Reason for follow-up is bilateral lower extremity wound and cellulitis Patient is a 84-year-old male with past medical history significant for atrial fibrillation hypertension hyperlipidemia CVA TIA COPD heart failure did have an AICD and apparently scheduled for change of the generator presenting to the hospital after the patient had a fall and did have multiple laceration to the lower extremity and concerning for cellulitis. On today's evaluation that is 04/07/2024, Patient is afebrile this morning and denies any chills, patient mention breathing comfortably and is currently on 3 L current oxygen, patient denies any chest pain occasional cough patient denies any abdominal pain no diarrhea no nausea no vomiting, denies pain to lower ext remity. Patient did not have any lab draw today Objective - Vital Signs Vital signs: Vital Signs Temp 97.8 F 04/07/24 13:00 Pulse 69 04/07/24 13:00 Resp 18 04/07/24 13:00 BP 126/77 04/07/24 13:00 Pulse Ox 98 04/07/24 13:00 FiO2 Intake & Output 04/06/24 04/07/24 04/07/24 18:59 06:59 18:59 Output Total 3025 Balance -3025 Weight 140.4 kg 132.5 kg Output: Urine 3025 Other: Voiding Method Indwelling Catheter Indwelling Catheter Indwelling Catheter - Exam GENERAL DESCRIPTION: An elderly male lying in bed in no distress RESPIRATORY SYSTEM: Unlabored breathing , decreased breath sounds at bases HEART: S1 S2 regular rate and rhythm , ABDOMEN: Soft , no tenderness EXTREMITIES: Bilateral legs wound currently dressed redness decreased - Labs CBC & Chem 7: 04/05/24 15:36 04/04/24 04:55 Labs: Microbiology - Last 24 Hours (Table) 04/05/24 16:45 Urine Culture - Final Urine,Catheterized Assessment and Plan (1) Bilateral leg ulcer Status: Acute Code(s): L97.919 - NON-PRS CHRONIC ULC UNSP PRT OF R LOW LEG W UNSP SEVERITY; L97.929 - NON-PRS CHRONIC ULC UNSP PRT OF L LOW LEG W UNSP SEVERITY SNOMED Code(s): 34095757 (2) Bilateral lower leg cellulitis Status: Acute Code(s): L03.116 - CELLULITIS OF LEFT LOWER LIMB; L03.115 - CELLULITIS OF RIGHT LOWER LIMB SNOMED Code(s): 546806540 Plan: 1patient with a bilateral lower extremity laceration and did have evidence of cellulitis likely from gram-positive skin rachelle gram-negative infection less likely but not excluded patient local culture did grow gram-negative 2local wound care to the wound with slough tissue to apply Medihoney Metzger of the wound which has been we will apply Aquacel silver dressing and will benefit from Sergio wrap from just above the toe to below the knee 3patient did have improvement in lower extremity cellulitis, patient to finish therapy with oral Ceftin and close outpatient follow-up Dictation was produced using [employer] dictation software. please excuse any grammatical, word or spelling errors. Time with Patient: Less than 30
== END 2024-04-07 14:58 | DRG 291 ==
LOC: EC 16:01 → 3SCARD 19:51 → OBSVTOIN 03-30 10:50 → 4SSUR 04-05 23:23
PROVIDERS: ADMIT Family Medicine; ATTEND Family Medicine
PROC: 4A10X4Z Monitoring of Central Nervous Electrical Activity, External Approach (ICD-10-PCS; principal; 2024-03-30)
DX: I13.0 Hypertensive heart and chronic kidney disease with heart failure and stage 1 through stage 4 chronic kidney disease, or unspecified chronic kidney disease (principal); I50.33 Acute on chronic diastolic (congestive) heart failure; J96.21 Acute and chronic respiratory failure with hypoxia; N17.9 Acute kidney failure, unspecified; L03.115 Cellulitis of right lower limb; L03.116 Cellulitis of left lower limb; I48.21 Permanent atrial fibrillation; L97.812 Non-pressure chronic ulcer of other part of right lower leg with fat layer exposed; L97.822 Non-pressure chronic ulcer of other part of left lower leg with fat layer exposed; Z68.41 Body mass index [BMI] 40.0-44.9, adult; N18.31 Chronic kidney disease, stage 3a; I5A Non-ischemic myocardial injury (non-traumatic); Z79.01 Long term (current) use of anticoagulants; E87.6 Hypokalemia; E11.22 Type 2 diabetes mellitus with diabetic chronic kidney disease; Z86.73 Personal history of transient ischemic attack (TIA), and cerebral infarction without residual deficits; E78.5 Hyperlipidemia, unspecified; B96.89 Other specified bacterial agents as the cause of diseases classified elsewhere; R55 Syncope and collapse; I25.10 Atherosclerotic heart disease of native coronary artery without angina pectoris; G25.81 Restless legs syndrome; E61.1 Iron deficiency; E66.9 Obesity, unspecified; G47.30 Sleep apnea, unspecified; R33.8 Other retention of urine; I87.8 Other specified disorders of veins; J30.2 Other seasonal allergic rhinitis; L98.492 Non-pressure chronic ulcer of skin of other sites with fat layer exposed; W19.XXXA Unspecified fall, initial encounter; Y92.009 Unspecified place in unspecified non-institutional (private) residence as the place of occurrence of the external cause; Z85.828 Personal history of other malignant neoplasm of skin; Z87.01 Personal history of pneumonia (recurrent); Z95.2 Presence of prosthetic heart valve; Z95.810 Presence of automatic (implantable) cardiac defibrillator; Z79.82 Long term (current) use of aspirin; Z86.14 Personal history of Methicillin resistant Staphylococcus aureus infection
CPT/HCPCS: 36415; 70450; 70496; 70498; 71045; 72125; 72170; 80048; 80053; 80306; 80320; 82550; 82607; 82746; 83540; 83550; 83735; 84145; 84443; 84484; 85025; 85027; 85610; 85730; 86850; 86900; 86901; 87040; 87070; 87075; 87077; 87086; 87186; 87205; 90715; 93005; 93306; 94640; 94760; 95816; 96360; 96361; 99291

== ENCOUNTER → 2024-07-21 | Outpatient (CLI) | payer MEDICARE ==
--- NOTE | 2024-07-21 11:50 | XR ---
EXAMINATION TYPE: XR KUB DATE OF EXAM: 07/21/2024 11:19 AM CLINICAL INDICATION: Male, 84 years old with history of R10.31 RIGHT LOWER QUADRANT PAIN; [facility] COMPARISON: None. TECHNIQUE: One radiographic view of the abdomen was obtained. FINDINGS: The bowel gas pattern is nonspecific without dilated loops of small or large bowel. . Fecal material and gas are demonstrated throughout the colon and rectum. There is no evidence for organomegaly or pneumoperitoneum. The osseous structures are intact. No ab normal calcifications are present. Degeneration changes incidentally sized osteophyte formation. Athe rosclerosis of the arteriovascular. IMPRESSION: Nonspecific bowel gas pattern without radiographic evidence for acute process. [facility], , 07/21/2024 11:48 AM
== END ==
LOC: RADXRMAIN 10:54
PROVIDERS: ATTEND Family Medicine
DX: R10.31 Right lower quadrant pain (principal)
CPT/HCPCS: 74018